=== PATIENT | male | born 1950 | race Caucasian/White ===

== ENCOUNTER 2019-03-14 08:57 | Day surgery (SDC) | payer OTHER ==
[~2019-03-14] VITALS: Ht 182.9 cm; Wt 100.7 kg
[~2019-03-14 08:57] MED LIST: ACAR50TA2 PO; ASPI81TA85 PO; CLAR10CA3 PO; GABA-845 PO; KP F1200 PO; LISI40TA PO; METF-839 PO; MULTCAP PO; NS 1,000 ML IV ONE; OMEP10CASR PO; ONGL1TAB9 PO; ROSU40TA4 PO
[2019-03-14] MEDS ORDERED: propofoL 200 MG/20 ML VIAL As Ordered ONE ×2 (10:06→10:14)
--- NOTE | 2019-03-14 10:23 | ROOR ---
Patient Name: Nacho Connell Procedure Date: 03/14/2019 10:01 AM Date of : 1950 Age: 68 Room: [facility] Gender: Male Note Status: Finalized Procedure: Total Colonoscopy to Cecum Indications: High risk colon cancer surveillance: Personal history of colonic polyps, Last colonoscopy: 2003 Providers: Ramirez Jarrett MD Referring MD: [facility] [place], [facility], Admin. Arthur Germain Requesting Provider: Medicines: Monitored Anesthesia Care Complications: No immediate complications. Procedure: Pre-Anesthesia Assessment: - The heart rate, respiratory rate, oxygen saturations, blood pressure, adequacy of pulmonary ventilation, and response to care were monitored throughout the procedure. The Colonoscope was introduced through the anus and advanced to the cecum, identified by appendiceal orifice and ileocecal valve. The colonoscopy was performed without difficulty. The patient tolerated the procedure well. The quality of the bowel preparation was excellent. Findings: The perianal and digital rectal examinations were normal. Non-bleeding internal hemorrhoids were found during retroflexion. The hemorrhoids were small and Grade I (internal hemorrhoids that do not prolapse). Scattered small-mouthed diverticula were found in the recto-sigmoid colon, sigmoid colon and descending colon. The exam was otherwise without abnormality on direct and retroflexion views. Impression: - Non-bleeding internal hemorrhoids. - Diverticulosis in the recto-sigmoid colon, in the sigmoid colon and in the descending colon. - The examination was otherwise normal on direct and retroflexion views. - No specimens collected. - The exam was otherwise normal to the cecum. Recommendation: - Patient has a contact number available for emergencies. The signs and symptoms of potential delayed complications were discussed with the patient. Return to normal activities tomorrow. Written discharge instructions were provided to the patient. - High fiber diet. - Discharge patient to home. - Continue present medications. - Repeat colonoscopy in 5 years for surveillance. - Return to referring physician. - The findings and recommendations were discussed with the patient's family. Ramirez Jarrett MD Ramirez Jarrett MD 03/14/2019 10:22:34 AM Electronically signed by Ramirez Jarrett MD Number of Addenda: 0 Note Initiated On: 03/14/2019 10:01 AM Estimated Blood Loss: Estimated blood loss: none.
[2019-03-14 10:40] VITALS: BP 124/80
== END 2019-03-14 10:49 | disposition home or self-care (01) ==
LOC: M OPP 08:57
PROVIDERS: ATTEND Internal Medicine Gastroenterology
DX: K64.0 First degree hemorrhoids (principal); K57.30 Diverticulosis of large intestine without perforation or abscess without bleeding; Z12.11 Encounter for screening for malignant neoplasm of colon; Z86.010 Personal history of colon polyps

== ENCOUNTER 2020-06-14 06:49 | Inpatient (IN) | payer OTHER, MEDICARE ==
[~2020-06-14] VITALS: Ht 182.9 cm; Wt 93.1 kg
[2020-06-14] VITALS (12 sets, daily range): BP systolic 125–188; BP diastolic 57–93
[~2020-06-14 06:49] MED LIST changes: -ACAR50TA2 PO; +ACAR50TA3 PO; -ASPI81TA85 PO; +ASPI81TA86 PO; -NS 1,000 ML IV ONE
[2020-06-14 07:56] LABS: BASO % 0.5 % (0.0-1.0); EOS # 0.2 10^3/uL (0.0-0.5); EOS % 2.4 % (0.0-3.0); HEMATOCRIT 40.4 % (42.0-52.0); LYMPH % 16.3 % (24.0-44.0); MEAN CORPUSCULAR HEMOGLOBIN 26.6 pg (27.0-33.0); MEAN CORPUSCULAR HGB CONC 32.2 g/dl (32.0-36.5); MEAN CORPUSCULAR VOLUME 82.6 fl (80.0-96.0); MONO # 0.4 10^3/uL (0.0-0.8); MONO % 7.1 % (0.0-5.0); NEUTROPHILS # 4.6 10^3/uL (1.5-8.5); NEUTROPHILS % 73.1 % (36.0-66.0); PLATELET COUNT, AUTOMATED 107 10^3/uL (150-450); RED BLOOD COUNT 4.89 10^6/uL (4.30-6.10); WHITE BLOOD COUNT 6.2 10^3/uL (4.0-10.0)
[2020-06-14] MEDS ORDERED: lisinopriL 40 MG TAB PO ONE (08:00)
[2020-06-14 08:06] LABS: BLOOD UREA NITROGEN 21 MG/DL (7-18); CALCIUM LEVEL 8.5 MG/DL (8.8-10.2); CARBON DIOXIDE LEVEL 26 MEQ/L (21-32); CHLORIDE LEVEL 104 MEQ/L (98-107); CREATININE FOR GFR 0.83 MG/DL (0.70-1.30); GLOMERULAR FILTRATION RATE > 60.0 (>42); GLUCOSE, FASTING 208 MG/DL (70-100); POTASSIUM SERUM 3.9 MEQ/L (3.5-5.1); SODIUM LEVEL 137 MEQ/L (136-145)
--- NOTE | 2020-06-14 08:18 | REP ---
INDICATION: Altered Mental Status. COMPARISON: None. TECHNIQUE: Helical scanning is acquired. 5 mm axial images were reformatted. Coronal MPR images were generated. FINDINGS: Bone window settings demonstrate an intact bony calvarium. There is no evidence of skull fracture or incidental bony calvarial lesion. The visualized paranasal sinuses appear clear. No intraorbital abnormality is seen. On soft tissue window setting images; the lateral, third, and fourth ventricles are normal in size and position. Donaldson-white differentiation pattern is normal above and below the tentorium. There are is no evidence of intracranial hemorrhage. No mass, edema, infarction, or midline shift is seen. No extra-axial fluid collection is appreciated. Vascular calcification is seen in the distal internal carotid arteries. There is mild generalized volume loss. IMPRESSION: Vascular calcification and mild diffuse atrophy. No acute intracranial abnormality.. <Electronically signed by Kameron Nichols > 06/14/20 [id number]
--- NOTE | 2020-06-14 08:19 | REP ---
INDICATION: Altered Mental Status. COMPARISON: Comparison chest x-ray November 11, 2012.. TECHNIQUE: Sitting AP portable exam. FINDINGS: Monitoring electrodes are seen. Heart is not enlarged. The aorta is calcific and a little tortuous. There are degenerative changes in the thoracic spine. The lungs are symmetrically aerated and free of infiltrate. Minimal linear fibrosis is seen in the left base laterally. The pleural angles are sharp. Pulmonary vasculature is not increased. IMPRESSION: Minimal linear fibrosis left base. No active disease. <Electronically signed by Kameron Nichols > 06/14/20 [id number]
[2020-06-14 08:27] LABS: VENOUS BASE EXCESS -0.8 (-2.0-2.0); VENOUS HCO3 24.6 MEQ/L (23.0-27.0); VENOUS O2 SATURATION 96.4 % (60.0-80.0); VENOUS PARTIAL PRESSURE CO2 43.2 mmHg (38.0-50.0); VENOUS PARTIAL PRESSURE O2 85.8 mmHg (30.0-50.0); VENOUS PH 7.373 UNITS (7.330-7.430); VENOUS STANDARD HCO3 23.8 MEQ/L; VENOUS TOTAL CO2 25.9 MEQ/L (24.0-28.0)
[2020-06-14 08:39] LABS: ALT/SGPT 15 U/L (12-78); BILIRUBIN,DIRECT 0.2 MG/DL (0.0-0.2); BILIRUBIN,TOTAL 0.5 MG/DL (0.2-1.0); CK-MB VALUE MASS 4.4 NG/ML (<3.6); CPK CREATINE PHOSPHOKINASE 193 U/L (39-308); MB/CK RELATIVE INDEX 2.28 (< OR =4); TOTAL PROTEIN 6.9 GM/DL (6.4-8.2); TROPONIN I < 0.02 NG/ML (< 0.10)
[2020-06-14 08:40] LABS: OSMOLALITY SERUM 296 MOSM/KG (280-301)
--- NOTE | 2020-06-14 10:24 | REP ---
INDICATION: weakness/sensation change lower extremities. COMPARISON: None. TECHNIQUE: Sagittal and axial T1 and T2-weighted scans are acquired in the usual fashion with and without fat saturation. Sequences include spin echo, turbo spin-echo, and STIR imaging sequences. FINDINGS: Lumbar vertebral body heights are preserved. There is some straightening. No bony destructive lesion is seen. Normal caliber aorta. No extra vertebral abnormality is appreciated. The tip of the conus medullaris is normal in position and appearance at T12-L1. At L1-L2, axial and sagittal images demonstrate a large broad-based central focal disc protrusion compressing the thecal sac and producing moderate central canal stenosis. The midline AP dimension of the thecal sac at this level is 3.7 mm. No neural foraminal narrowing is seen. At the L2-3 level, there is diffuse disc bulging. Combined with mild ligamentum flavum hypertrophy and developmentally short pedicles, there is moderate central canal stenosis at L2-3 as well. Midline AP dimension of the thecal sac at L2-3 is 4.7 mm. No neural foraminal narrowing is seen. At L3-L4, there is a broad-based right paracentral focal disc protrusion and diffuse disc bulging which contribute along with ligamentum flavum and facet hypertrophy and developmentally short pedicles to moderate to severe central canal stenosis at L3-4. CSF signal intensity is effaced from the thecal sac at L3-4 on T2 weighted scans. The facet hypertrophy is more prominent on the right. Midline AP dimension of the thecal sac at L3-4 is 4.8 mm. There is disc bulging and spurring in the neural foramen on both sides at L3-4 but no elin had root compression is seen. At L4-L5, there is diffuse disc bulging and a broad-based left posterior disc protrusion. There is severe central canal stenosis and cauda equina compression at this level. Ligamentum flavum and facet hypertrophy contribute to this. The midline AP dimension of the thecal sac at this level is 2.8 mm. The caudate equina elements show slight buckling above this level on sagittal T2 weighted scans. There is neural foraminal narrowing on the left at L4-5. At L5-S1, there is diffuse disc bulging and a small left posterior focal disc protrusion is seen. This abuts the left L5 root.. This indents the ventral margin of the thecal sac. No significant central canal stenosis seen. Mild facet hypertrophy is present at L5-S1. IMPRESSION: Multilevel significant central canal stenosis. Most severe at L4-5 but moderate to severe at L3-4 and L2-3. Multilevel neural foraminal narrowing as above. Focal disc protrusion seen at L1-2, L3-4, L4-5, and L5-S1 contributing to thecal sac compression. Developmentally small canal size. <Electronically signed by Kameron Nichols > 06/14/20 [id number]
[2020-06-14] MEDS ORDERED: amLODIPine 10 MG TAB PO ONE (10:45)
--- NOTE | 2020-06-14 10:46 | HPEPDOC ---
General Date of Admission 06/14/20 Date of Service: Jun 14, 2020 Chief Complaint The patient is a 69-year-old male admitted with a reason for visit of Weakness. Source: Patient Exam Limitations: No limitations Timing/Duration: Day(s) Severity: Moderate History of Present Illness Patient 69 years old male with history of hypertension, hyperlipidemia, type 2 diabetes presented to the hospital with increased numbness and weakness of both feet. Patient stated that for past 48 hours he has been having increased numbness of his feet associated with weakness. Also patient stated that it became worse and from feet rising to his proximal legs. Also patient mentioned that he started feeling weakness in his both hands with numbness. Patient has diabetes polyneuropathy but he stated that legs sensation is different. Patient had 2 weeks ago flu vaccination and 6 days ago he had diarrhea, which subsequently resolved. In ER patient was found to have no leukocytosis, lactic acid 2.2, lumbar MRI showed Multilevel significant central canal stenosis. Most severe at L4-5 but moderate to severe at L3-4 and L2-3. Multilevel neural foraminal narrowing as above. Focal disc protrusion seen at L1-2, L3-4, L4-5, and L5-S1 contributing to thecal sac compression. Also patient was found to have elevated blood pressure of 220/95 Home Medications Scheduled Acarbose (Acarbose) 50 Mg Tablet, 50 MG PO WM, (Reported) Aspirin (Aspirin EC) 81 Mg Tablet.dr, 81 MG PO Q2D, (Reported) Cholecalciferol (Vitamin D3) (Vitamin D3) 1,000 Unit Tablet, 1,000 UNITS PO DAILY, (Reported) Gabapentin (Gabapentin) 400 Mg Capsule, 1,200 MG PO QHS, (Reported) Lisinopril (Lisinopril) 40 Mg Tablet, 20 MG PO DAILY, (Reported) Loratadine (Claritin) 10 Mg Capsule, 10 MG PO DAILY, (Reported) Metformin HCl (Metformin HCl ER) 500 Mg Tab.er.24h, 1,000 MG PO BID, (Reported) Multivitamin (Multivitamins) 1 Each Capsule, 1 CAP PO QPM, (Reported) [place]-3/Dha/Epa/Fish Oil (Fish Oil 1,000 mg Softgel) 1 Each Capsule, 1,000 MG PO QPM, (Reported) Omeprazole (Omeprazole) 20 Mg Capsule.dr, 20 MG PO DAILY, (Reported) Rosuvastatin Calcium (Rosuvastatin Calcium) 40 Mg Tablet, 40 MG PO QPM, (Reported) Saxagliptin HCl (Onglyza) 5 Mg Tablet, 5 MG PO DAILY, (Reported) Scheduled PRN Ibuprofen (Ibuprofen) 200 Mg Capsule, 400 MG PO QID PRN for PAIN, (Reported) Naproxen Sodium (Aleve) 220 Mg Tablet, 440 MG PO BID PRN for PAIN, (Reported) Allergies Coded Allergies: latex (Verified Allergy, Intermediate, blisters, 03/14/19) Past Medical History Medical History hypertension, hyperlipidemia, type 2 diabetes Family History I personally reviewed family history and found not pertinent Social History * Smoker: former Smoker Alcohol: Denies Drugs: denies A-FIB/CHADSVASC A-FIB History Current/History of A-Fib/PAF?: No Current PO Anticoag Therapy: No Review of Systems Constitutional: Denies: Chills, Fever Eyes: Denies: Pain ENT: Denies: Head Aches Skin: Denies: Rash Pulmonary: Denies: Dyspnea Cardiovascular: Denies: Chest Pain Gastrointestinal: Denies: Nausea, Vomiting Genitourinary: Denies: Dysuria Hematologic: Denies: Bruising, Bleeding Excessively Musculoskeletal: Denies: Neck Pain Neurological: Reports: Weakness (legs and hands), Numbness Psych: Reports: Mood Normal Physical Examination General Exam: Positive: Alert Eye Exam: Positive: PERRLA, Conjunctiva & lids normal ENT Exam: Positive: Atraumatic Neck Exam: Positive: Supple; Negative: JVD Chest Exam: Positive: Clear to auscultation Heart Exam: Positive: Rate Normal Telemetry: Positive: No significant arrhythmia Abdomen Exam: Positive: Normal bowel sounds Extremity Exam: Negative: Clubbing, Cyanosis Skin Exam: Positive: Nl turgor and temperature Neuro Exam: Negative: Strength at 5/5 X4 ext (LE3/5 b/l, UE 3/5 bl) Psych Exam: Positive: Mental status NL Vital Signs Vital Signs Date Time Temp Pulse Resp B/P (MAP) Pulse Ox O2 Delivery O2 Flow Rate FiO2 06/14/20 08:18 88 207/95 (132) 98 Room Air 06/14/20 07:43 96.6 06/14/20 07:33 18 Laboratory Data Labs 24H Laboratory Tests 2 06/14/20 07:38: Immature Granulocyte % (Auto) 0.6, Neutrophils (%) (Auto) 73.1H, Lymphocytes (%) (Auto) 16.3L, Monocytes (%) (Auto) 7.1H, Eosinophils (%) (Auto) 2.4, Basophils (%) (Auto) 0.5, Neutrophils # (Auto) 4.6, Lymphocytes # (Auto) 1.0L, Monocytes # (Auto) 0.4, Eosinophils # (Auto) 0.2, Basophils # (Auto) 0.0, Nucleated Red Blood Cells % (auto) 0.0, Anion Gap 7L, Glomerular Filtration Rate > 60.0, Osmolality 296, Calcium Level 8.5L, Total Bilirubin 0.5, Direct Bilirubin 0.2, Aspartate Amino Transf (AST/SGOT) 20, Alanine Aminotransferase (ALT/SGPT) 15, Alkaline Phosphatase 79, Total Creatine Kinase 193, Creatine Kinase MB 4.4H, Creatine Kinase MB Relative Index 2.28, Troponin I < 0.02, Total Protein 6.9, Albumin 4.0, Albumin/Globulin Ratio 1.4 06/14/20 07:42: POC Glucose (Misc Panel) 218H, POC Sodium (Misc Panel) 138, POC Potassium (Misc Panel) 4.0, POC Chloride (Misc Panel) 102, POC Total CO2 (Misc Panel) 24.0, POC Blood Urea Nitrogen (Misc Panel 22, POC Ionized Calcium (Misc Panel) 4.3L, POC Creatinine (Misc Panel) 0.7, POC Hematocrit (Misc Panel) 41.0 06/14/20 08:11: Urine Color YELLOW, Urine Appearance CLEAR, Urine pH 5.0, Urine Specific [place] 1.006, Urine Protein NEGATIVE, Urine Glucose (UA) NEGATIVE, Urine Ketones NEGATIVE, Urine Blood NEGATIVE, Urine Nitrite NEGATIVE, Urine Bilirubin NEGATIVE, Urine Urobilinogen 0.2, Urine Leukocyte Esterase NEGATIVE, Urine WBC (Auto) 0, Urine RBC (Auto) 0, Urine Hyaline Casts (Auto) 0, Urine Bacteria (Auto) NEGATIVE, Urine Squamous Epithelial Cells 0, Urine Mucus (Auto) SMALL, Urine Sperm (Auto) , Blood Gas Bicarbonate Standard 23.8, Venous Blood pH 7.373, Venous Blood Partial Pressure CO2 43.2, Venous Blood Partial Pressure O2 85.8H, Venous Blood Total Carbon Dioxide 25.9, Venous Blood HCO3 24.6, Venous Blood Oxygen Saturation 96.4H, Venous Blood Base Excess -0.8, Lactic Acid Level 2.2*H, Ammonia 25 CBC/BMP Laboratory Tests 06/14/20 07:38 Assessment/Plan Patient 69 years old male with history of hypertension, hyperlipidemia, type 2 diabetes presented to the hospital with increased numbness and weakness of both feet. Patient stated that for past 48 hours he has been having increased numbness of his feet associated with weakness. Also patient stated that it became worse and from feet rising to his proximal legs. Also patient mentioned that he started feeling weakness in his both hands with numbness. Patient has diabetes polyneuropathy but he stated that legs sensation is different. Patient had 2 weeks ago flu vaccination and 6 days ago he had diarrhea, which subsequently resolved. In ER patient was found to have no leukocytosis, lactic acid 2.2, lumbar MRI showed Multilevel significant central canal stenosis. Most severe at L4-5 but moderate to severe at L3-4 and L2-3. Multilevel neural foraminal narrowing as above. Focal disc protrusion seen at L1-2, L3-4, L4-5, and L5-S1 contributing to thecal sac compression. Also patient was found to have elevated blood pressure of 220/95 Problems (1) Weakness Status: Acute Problem Text: Lower extremity and upper extremity weakness Associated with lower extremity numbness and hands numbness Differential diagnosis includes progression of spinal stenosis, Guillain-Valladares, cervical myelopathy Will proceed with thoracic and cervical MRI Case was discussed with Dr. Noeudin Await MRI results (2) Hypertensive emergency Status: Acute Problem Text: Continue home meds Labetalol IV when necessary I added Norvasc 10 mg by mouth (3) Diabetes mellitus Status: Chronic Problem Text: Diabetes diet Insulin sliding scale Plan / VTE VTE Prophylaxis Ordered?: Yes HEYDI SMITH DO Jun 14, 2020 10:46
[2020-06-14] MEDS ORDERED: IBUP200C29 PO (11:02)
[2020-06-14] MEDS ORDERED: OMEG10002 PO (11:02)
[2020-06-14] MEDS ORDERED: OMEP1CAP73 PO (11:02)
[2020-06-14] MEDS ORDERED: D31000TA2 PO (11:02)
[2020-06-14] MEDS ORDERED: ASPI81TA26 PO (11:02)
[2020-06-14] MEDS ORDERED: METF-838 PO (11:02)
[2020-06-14] MEDS ORDERED: ALEV220T22 PO (11:02)
[2020-06-14] MEDS ORDERED: DEXTROSE 50% 50 ML SYRINGE IV PRN (11:15)
[2020-06-14] MEDS ORDERED: GLUCAGON INJ 1MG VIAL SC PRN (11:15)
[2020-06-14] MEDS ORDERED: GLUCOSE 4GM CHEW TABLET PO PRN (11:15)
[2020-06-14] MEDS: VITAMIN D 1,000 INTERNATIONAL UNITS TABLET PO SCH (13:06)
[2020-06-14] MEDS: OMEPRAZOLE 20 MG CAP PO SCH (13:06)
[2020-06-14] MEDS: HumaLOG INSULIN (NovoLOG) PER UNIT SC SCH ×3 (13:06→20:42)
[2020-06-14] MEDS: LORATADINE 10 MG TAB PO SCH (13:06)
[2020-06-14] MEDS: LABETALOL 100MG/20ML VIAL IV PRN ×2 (13:08→20:40)
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
[2020-06-14] MEDS: ACETAMINOPHEN TAB 650MG DOSE (2X325MG) PO PRN ×2 (16:40→22:07)
[2020-06-14] MEDS ORDERED: dexameTHASONE 20MG/5ML VIAL (J1100 PER 1MG) As Ordered ONE (17:54)
[2020-06-14] MEDS ORDERED: dexameTHASONE 20MG/5ML VIAL (J1100 PER 1MG) IV ONE (18:00)
[2020-06-14] MEDS ORDERED: METOCLOPRAMIDE INJ 10MG/2ML VIAL (J2765 PER 1) IV ONE (18:30)
[2020-06-14 19:53] LABS: HEMOGLOBIN A1c 8.1 %
--- NOTE | 2020-06-14 20:06 | REPVR ---
PROCEDURE INFORMATION: Exam: MR Cervical Spine Without Contrast Exam date and time: 06/14/2020 6:57 PM Age: 69 years old Clinical indication: Patient HX: Bu&le weakness, cauda equina from mri lspine earlier today TECHNIQUE: Imaging protocol: Multiplanar magnetic resonance images of the cervical spine without contrast. COMPARISON: No relevant prior studies available. FINDINGS: Vertebrae: The cervical vertebral bodies are normal in height, without abnormal subluxation. Spinal cord: No visualized cervical spinal cord edema. See below. Multilevel findings: Degenerative disc disease is noted at multiple cervical levels, with a decrease in the T2 signal intensity of the discs as well as disc bulge/osteophyte complexes. C2-C3: Mild disc bulging. No significant narrowing of the thecal sac or neural foramina. C3-C4: There is a broad-based disc bulge with protrusion causing moderate narrowing of the thecal sac and slight flattening of the ventral border of the spinal cord. Severe bilateral neural foraminal narrowing, with uncovertebral hypertrophy. C4-C5: A broad-based disc protrusion is identified with hypertrophy of the ligamentum flavum causing moderate spinal canal stenosis. There is mild increased concavity/compression of the cervical spinal cord. Mild bilateral neural foraminal narrowing, with uncovertebral hypertrophy. C5-C6: Mild disc bulging, with mild narrowing of the thecal sac. No significant neural foraminal narrowing bilaterally. C6-C7: Minimal disc bulging causing flattening of the ventral border of the thecal sac without significant overall narrowing. No significant neural foraminal narrowing bilaterally. C7-T1: No significant narrowing of the thecal sac. Mild right neural foraminal narrowing. No significant narrowing of the left neural foramen. Bilateral facet arthropathy visualized. Vertebral arteries: Expected flow voids in the vertebral arteries. A dominant right vertebral artery is identified. Soft tissues: No significant prevertebral soft tissue swelling. IMPRESSION: 1. Degenerative changes are noted at multiple cervical levels, as described above. 2. At C3-C4, there is a broad-based disc bulge with protrusion causing moderate narrowing of the thecal sac and slight flattening of the ventral border of the spinal cord. 3. At C4-C5, a broad-based disc protrusion is identified with moderate spinal canal stenosis. There is mild increased concavity/compression of the cervical spinal cord. 4. Mild narrowing of the thecal sac at C5-C6. 5. Neural foraminal narrowing visualized from C3-C4 through C7-T1. Electronically signed by: Tyrone Tatum On 06/14/2020 20:06:26 PM
[2020-06-14] MEDS: ROSUVASTATIN 10 MG TAB (CRESTOR) PO SCH (20:39)
[2020-06-14] MEDS: GABAPENTIN 400 MG CAP PO SCH (20:39)
--- NOTE | 2020-06-14 20:51 | REPVR ---
PROCEDURE INFORMATION: Exam: MR Thoracic Spine Without Contrast Exam date and time: 06/14/2020 7:33 PM Age: 69 years old Clinical indication: Patient HX: Bu&le weakness, cauda equina from mri lspine earlier today TECHNIQUE: Imaging protocol: Multiplanar magnetic resonance images of the thoracic spine without contrast. COMPARISON: No relevant prior studies available. FINDINGS: Vertebrae: There is increased concavity of multiple mid to lower thoracic endplates. A mild decrease in vertebral height is identified at T5 and T7 without acute marrow edema, consistent with chronic deformities. No abnormal subluxation of the thoracic vertebral bodies. Mild increased kyphosis of the thoracic spine. Spinal cord: Mild increased STIR signal intensity is identified within the lower thoracic spinal cord extending from T9-T10. This is suggestive of mild edema or myelopathy, although this abnormal signal is not confirmed on axial images. Discs/Spinal canal/Neural foramina: Degenerative changes are identified at multiple thoracic levels, with disc bulge/osteophyte complexes. Edema is identified within the T7-8 and T8-9 discs, which is likely degenerative or due to discitis. Mild edema is seen within the T9-10 and disc and adjacent bone marrow, which is also likely degenerative although an infectious etiology cannot be excluded. Minimal posterior disc bulging from T7-8 through T9-10, without significant narrowing of the thecal sac. Broad-based disc bulges are identified at T10-11 and T11-12, with minimal narrowing of the thecal sac at these levels. No significant narrowing of the thecal sac at the remaining thoracic levels. Mild right neural foraminal narrowing at T2-3. Slight narrowing of the left neural foramen at T11-12. The remaining thoracic neural foramina are patent. A decrease in disc height is identified at T7-8 and T8-9. Lungs: Evaluation of the lungs on MRI is limited. Kidneys and ureters: A 3.3 cm T2 hyperintense right renal cyst or cystic lesion is partially visualized. Soft tissues: No significant paraspinal swelling. Vasculature: Borderline aneurysmal dilatation of the descending thoracic aorta measuring 3.0 cm in diameter. IMPRESSION: 1. Mild increased STIR signal intensity is identified within the lower thoracic spinal cord extending from T9-T10. This is suggestive of mild edema or myelopathy, although this abnormal signal is not confirmed on axial images. Clinical correlation and follow-up postcontrast sequences are recommended. 2. Degenerative changes are identified at multiple thoracic levels, as described above. 3. Edema is identified within the T7-8 and T8-9 discs, which is likely degenerative or due to discitis. Mild edema is seen within the T9-10 and disc and adjacent bone marrow, which is also likely degenerative although an infectious etiology cannot be excluded. Clinical correlation recommended. 4. Broad-based disc bulges are identified at T10-11 and T11-12, with minimal narrowing of the thecal sac at these levels. 5. Mild right neural foraminal narrowing at T2-3. Slight narrowing of the left neural foramen at T11-12. 6. Mild increased kyphosis of the thoracic spine. 7. Borderline aneurysmal dilatation of the descending thoracic aorta measuring 3.0 cm in diameter. 8. A 3.3 cm right renal cyst or cystic lesion is partially visualized. Follow-up ultrasonography recommended. Electronically signed by: Tyrone Tatum On 06/14/2020 20:51:17 PM
[2020-06-15] VITALS (12 sets, daily range): BP systolic 140–195; BP diastolic 67–89
[2020-06-15] MEDS: ACETAMINOPHEN TAB 650MG DOSE (2X325MG) PO PRN (04:13)
[2020-06-15 04:41] LABS: HEMATOCRIT 40.8 % (42.0-52.0); HEMOGLOBIN 13.5 g/dl (13.5-17.5); MEAN CORPUSCULAR HEMOGLOBIN 27.2 pg (27.0-33.0); MEAN CORPUSCULAR HGB CONC 33.1 g/dl (32.0-36.5); MEAN CORPUSCULAR VOLUME 82.1 fl (80.0-96.0); PLATELET COUNT, AUTOMATED 124 10^3/uL (150-450); RED BLOOD COUNT 4.97 10^6/uL (4.30-6.10)
[2020-06-15 04:57] LABS: ALBUMIN 3.7 GM/DL (3.2-5.2); ALT/SGPT 15 U/L (12-78); BILIRUBIN,TOTAL 0.6 MG/DL (0.2-1.0); BLOOD UREA NITROGEN 19 MG/DL (7-18); CALCIUM LEVEL 8.3 MG/DL (8.8-10.2); CARBON DIOXIDE LEVEL 25 MEQ/L (21-32); CHLORIDE LEVEL 102 MEQ/L (98-107); CREATININE FOR GFR 0.99 MG/DL (0.70-1.30); GLOMERULAR FILTRATION RATE > 60.0 (>42); GLUCOSE, FASTING 290 MG/DL (70-100); POTASSIUM SERUM 4.2 MEQ/L (3.5-5.1); SODIUM LEVEL 136 MEQ/L (136-145); TOTAL PROTEIN 6.9 GM/DL (6.4-8.2)
[2020-06-15] MEDS: LORATADINE 10 MG TAB PO SCH (08:32)
[2020-06-15] MEDS: ASPIRIN 81 MG ENTERIC TAB PO SCH (08:32)
[2020-06-15] MEDS: VITAMIN D 1,000 INTERNATIONAL UNITS TABLET PO SCH (08:32)
[2020-06-15] MEDS: IBUPROFEN 800 MG TAB PO PRN ×2 (08:32→23:10)
[2020-06-15] MEDS: OMEPRAZOLE 20 MG CAP PO SCH (08:33)
[2020-06-15] MEDS: HumaLOG INSULIN (NovoLOG) PER UNIT SC SCH ×4 (08:42→20:46)
[2020-06-15] MEDS ORDERED: lisinopriL 20 MG TAB PO SCH (09:00)
[2020-06-15] MEDS: ENOXAPARIN 40MG/0.4ML SYRINGE (J1650 PER 10MG) SC SCH (09:00)
--- NOTE | 2020-06-15 09:03 | ECGEPIP ---
[facility] - ED Test Date: 2020-06-14 Pat Name: ONDINA CLEANING Department: Room: - Gender: Male [employer]one Mechanic: Annamarie ALICIA : [id number] Requested By: Esme Arteaga Order Number: [id number] Reading MD: Esme Atreaga Measurements Intervals [place] Rate: 85 P: 53 FL: 162 QRS: 52 QRSD: 165 T: 22 QT: 419 QTc: 501 Interpretive Statements SINUS RHYTHM RIGHT BUNDLE BRANCH BLOCK No prior Electronically Signed on 06-15-2020 9:02:54 EST by Esme Arteaga
[2020-06-15] MEDS: LABETALOL 100MG/20ML VIAL IV PRN ×2 (10:26→21:25)
--- NOTE | 2020-06-15 11:20 | IPNPDOC ---
Text Note Date of Service The patient was seen on 06/15/20. NOTE Subjective: Patient stated that he continues to have increased weakness of his legs and hands. No any acute events overnight Objective: GENERAL APPEARANCE: NAD HEENT: no scleral icterus, no JVD, EOMI CARDIOVASCULAR: S1S2 LUNGS: CTA ABDOMEN: soft & not tender w palpitation MUSCULOSKELETAL: UE 3/5, LE 3/5 INTEGUMENT: no generalized palor NEUROLOGICAL: cranial nerve function from 2-12 intact intact, follows commands, speech not dysarthric Patient 69 years old male with history of hypertension, hyperlipidemia, type 2 diabetes presented to the hospital with increased numbness and weakness of both feet. Patient stated that for past 48 hours he has been having increased numbness of his feet associated with weakness. Also patient stated that it became worse and from feet rising to his proximal legs. Also patient mentioned that he started feeling weakness in his both hands with numbness. Patient has diabetes polyneuropathy but he stated that legs sensation is different. Patient had 2 weeks ago flu vaccination and 6 days ago he had diarrhea, which subsequ ently resolved. In ER patient was found to have no leukocytosis, lactic acid 2.2, lumbar MRI showed Multilevel significant central canal stenosis. Most severe at L4-5 but moderate to severe at L3-4 and L2-3. Multilevel neural foraminal narrowing as above. Focal disc protrusion seen at L1-2, L3-4, L4-5, and L5-S1 contributing to thecal sac compression. Also patient was found to have elevated blood pressure of 220/95 Problems (1) Weakness Lower extremity and upper extremity weakness associated with lower extremity numbness and hands numbness Differential diagnosis includes progression of spinal stenosis, Guillain-Valladares, cervical myelopathy and cauda equina consulted patient yesterday, he recommended spinal surgery in the outpatient settings Dr. Lozano recommended lumbar puncture inability to rule out Guillain-Valladares syndrome Will start IVIG empirically for 5 days (2) Hypertensive emergency/hypertension Continue home meds Labetalol IV when necessary I added Norvasc 10 mg by mouth Increase the dose of lisinopril to 40 mg (3) Diabetes mellitus Diabetes diet Insulin sliding scale Suicidal ideation/major depressive episode Sitter 24 hours Psychiatrist team recommended IMHU after discharge I started paroxetine HEYDI SMITH DO VS,Fishbone, I+O VS, Fishbone, I+O Laboratory Tests 06/15/20 04:13 Vital Signs Date Time Temp Pulse Resp B/P (MAP) Pulse Ox O2 Delivery O2 Flow Rate FiO2 06/15/20 10:26 86 171/75 06/15/20 04:21 97.8 20 92 Nasal Cannula 2.0 I&O- Last 24 Hours up to 6 AM 06/15/20 06:00 Intake Total 660 ml Output Total 1410 ml Balance -750 ml HEYDI SMITH DO Jun 15, 2020 11:20
[2020-06-15] MEDS ORDERED: CHLORTHALIDONE 25 MG TAB PO ONE (12:00)
[2020-06-15] MEDS ORDERED: MAG SULF 1GM/100ML (MAG RUN) 1 GM in IV 1 EA IV ONE (12:00)
[2020-06-15] MEDS: LEVEMIR (INSULIN DETEMIR) 1 UNITS/0.01ML SC SCH (12:05)
[2020-06-15] MEDS: PARoxetine 10MG TABLET PO SCH (13:31)
[2020-06-15] MEDS: IMMUNE GLOBULIN 10% 40 GM in IV 1 EA IV SCH (13:34)
[2020-06-15] MEDS: ROSUVASTATIN 10 MG TAB (CRESTOR) PO SCH (20:44)
[2020-06-15] MEDS: GABAPENTIN 400 MG CAP PO SCH (20:44)
[2020-06-16] VITALS (30 sets, daily range): BP systolic 111–201; BP diastolic 59–115
[2020-06-16] MEDS: LABETALOL 100MG/20ML VIAL IV PRN ×4 (00:16→20:14)
[2020-06-16] MEDS: ACETAMINOPHEN TAB 650MG DOSE (2X325MG) PO PRN ×4 (00:16→20:13)
[2020-06-16] MEDS: RAMELTEON 8 MG TAB (ROZEREM) PO PRN ×2 (00:16→20:13)
[2020-06-16] MEDS ORDERED: MORPHINE 2 MG/ML 1ML VIAL (J2270) IV ONE ×2 (04:45→11:00)
[2020-06-16] MEDS: HumaLOG INSULIN (NovoLOG) PER UNIT SC SCH ×4 (07:55→21:00)
[2020-06-16] MEDS: PARoxetine 10MG TABLET PO SCH (08:00)
[2020-06-16] MEDS: lisinopriL 20 MG TAB PO SCH (08:01)
[2020-06-16] MEDS: LORATADINE 10 MG TAB PO SCH (08:01)
[2020-06-16] MEDS: OMEPRAZOLE 20 MG CAP PO SCH (08:01)
[2020-06-16] MEDS: VITAMIN D 1,000 INTERNATIONAL UNITS TABLET PO SCH (08:01)
[2020-06-16] MEDS: LEVEMIR (INSULIN DETEMIR) 1 UNITS/0.01ML SC SCH (08:02)
[2020-06-16] MEDS: amLODIPine 10 MG TAB PO SCH (08:05)
[2020-06-16 08:18] LABS: BASO % 0.6 % (0.0-1.0); EOS # 0.1 10^3/uL (0.0-0.5); EOS % 2.3 % (0.0-3.0); HEMATOCRIT 40.5 % (42.0-52.0); HEMOGLOBIN 12.9 g/dl (13.5-17.5); LYMPH # 0.9 10^3/uL (1.5-5.0); LYMPH % 18.3 % (24.0-44.0); MEAN CORPUSCULAR HEMOGLOBIN 26.7 pg (27.0-33.0); MEAN CORPUSCULAR HGB CONC 31.9 g/dl (32.0-36.5); MEAN CORPUSCULAR VOLUME 83.7 fl (80.0-96.0); MONO # 0.4 10^3/uL (0.0-0.8); MONO % 7.4 % (0.0-5.0); NEUTROPHILS # 3.5 10^3/uL (1.5-8.5); PLATELET COUNT, AUTOMATED 115 10^3/uL (150-450); RED BLOOD COUNT 4.84 10^6/uL (4.30-6.10); WHITE BLOOD COUNT 4.9 10^3/uL (4.0-10.0)
[2020-06-16 08:36] LABS: CALCIUM LEVEL 8.1 MG/DL (8.8-10.2); CREATININE FOR GFR 1.36 MG/DL (0.70-1.30); MAGNESIUM LEVEL 1.5 MG/DL (1.8-2.4); POTASSIUM SERUM 4.6 MEQ/L (3.5-5.1)
[2020-06-16] MEDS ORDERED: MORPHINE 2 MG/ML 1ML VIAL (J2270) IV PRN (09:00)
[2020-06-16] MEDS: ENOXAPARIN 40MG/0.4ML SYRINGE (J1650 PER 10MG) SC SCH (09:00)
[2020-06-16] MEDS: traMADol 50 MG TAB PO PRN ×2 (09:27→17:59)
[2020-06-16] MEDS: DOCUSATE SODIUM 100MG CAPSULE PO SCH ×2 (09:45→20:13)
[2020-06-16] MEDS: NS 1,000 ML IV SCH ×2 (09:45→17:58)
[2020-06-16] MEDS: **hydrALAZINE** 50 MG TAB PO PRN ×2 (09:45→20:13)
[2020-06-16] MEDS ORDERED: BISACODYL 10 MG SUPP PR ONE (10:00)
[2020-06-16] MEDS ORDERED: MAG SULF 1GM/100ML (MAG RUN) 1 GM in IV 1 EA IV ONE (10:00)
[2020-06-16] MEDS ORDERED: hydrALAZINE 20MG/ML 1ML VIAL (J0360 PER 20MG) IV STA (10:44)
--- NOTE | 2020-06-16 12:02 | IPNPDOC ---
Text Note Date of Service The patient was seen on 06/16/20. NOTE Subjective: Patient complains of severe lumbar and thoracic pain 9 out of 10. Also patient developed high systolic blood pressure of 200. Lumbar puncture was done by anesthesiology team today Objective: GENERAL APPEARANCE: NAD HEENT: no scleral icterus, no JVD, EOMI CARDIOVASCULAR: S1S2 LUNGS: CTA ABDOMEN: soft & not tender w palpitation MUSCULOSKELETAL: UE 3/5, LE 3/5, perianal sensitivity preserved INTEGUMENT: no generalized pallor NEUROLOGICAL: cranial nerve function from 2-12 intact intact, follows commands, speech not dysarthric Patient 69 years old male with history of hypertension, hyperlipidemia, type 2 diabetes presented to the hospital with increased numbness and weakness of both feet. Patient stated that for past 48 hours he has been having increased numbness of his feet associated with weakness. Also patient stated that it became worse and from feet rising to his proximal legs. Also patient mentioned that he started feeling weakness in his both hands with numbness. Patient has diabetes polyneuropathy but he stated that legs sensation is different. Patient had 2 weeks ago flu vaccination and 6 days ago he had diarrhea, which subseq uently resolved. In ER patient was found to have no leukocytosis, lactic acid 2.2, lumbar MRI showed Multilevel significant central canal stenosis. Most severe at L4-5 but moderate to severe at L3-4 and L2-3. Multilevel neural foraminal narrowing as above. Focal disc protrusion seen at L1-2, L3-4, L4-5, and L5-S1 contributing to thecal sac compression. Also patient was found to have elevated blood pressure of 220/95 Problems (1) Weakness Lower extremity and upper extremity weakness associated with lower extremity numbness and hands numbness Differential diagnosis includes progression of spinal stenosis, Guillain-Valladares, cervical myelopathy and cauda equina consulted patient yesterday, he recommended spinal surgery in the outpatient settings. Unlikely patient developed Dr. Lozano recommended lumbar puncture in to rule out Guillain-Valladares syndrome. Lumbar puncture was done on 06/26/20 IVIG empirically for 5 days (2) Hypertensive emergency/hypertension Most likely to severe pain. Continue home meds Labetalol IV when necessary Hydrolyzing IV with parameters I added Norvasc 10 mg by mouth Increase the dose of lisinopril to 40 mg (3) Diabetes mellitus Diabetes diet Insulin sliding scale Suicidal ideation/major depressive episode Sitter 24 hours Psychiatrist team recommended IMHU after discharge I started paroxetine VS,Fishbone, I+O VS, Fishbone, I+O Laboratory Tests 06/16/20 07:44 Vital Signs Date Time Temp Pulse Resp B/P (MAP) Pulse Ox O2 Delivery O2 Flow Rate FiO2 06/16/20 11:43 96.1 62 20 157/70 96 Nasal Cannula 2.0 I&O- Last 24 Hours up to 6 AM 06/16/20 06:00 Intake Total 1140 ml Output Total 1955 ml Balance -815 ml HEYDI SMITH DO Jun 16, 2020 12:02
[2020-06-16 12:38] LABS: APPEARANCE, CSF CLEAR (CLEAR); COLOR, CSF COLORLESS (COLORLESS); CSF TUBE# CELL CNT TUBE 1
[2020-06-16 12:42] LABS: APPEARANCE, CSF HAZY (CLEAR); COLOR, CSF PINK (COLORLESS); CSF TUBE# CELL CNT TUBE 4
[2020-06-16] MEDS ORDERED: PROHANCE 279.3MG/ML 5ML VIAL As Ordered ONE (12:53)
[2020-06-16] MEDS ORDERED: PROHANCE 279.3MG/ML 15ML VIAL As Ordered ONE (12:55)
[2020-06-16 13:16] LABS: CSF TUBE# GLU TUBE 2; CSF TUBE# TP TUBE 2; GLUCOSE CSF 177 MG/DL (40-75); TOTAL PROTEIN,CSF 167 MG/DL (15-45)
[2020-06-16] MEDS: LIDOCAINE 5% (LIDODERM) PATCH TD SCH (14:04)
[2020-06-16] MEDS: IMMUNE GLOBULIN 10% 40 GM in IV 1 EA IV SCH (14:11)
[2020-06-16 14:56] LABS: ABG BASE EXCESS 0.1 (-2.0-2.0); ABG HCO3 25.4 MEQ/L (22.0-26.0); ABG O2 SATURATION 95.8 % (95.0-99.0); ABG PARTIAL PRESSURE O2 82.1 mmHg (75.0-100.0); ABG STANDARD HCO3 24.5 MEQ/L (22.0-26.0); ABG TOTAL CO2 26.8 MEQ/L (23.0-31.0)
--- NOTE | 2020-06-16 18:08 | REP ---
INDICATION: spinal stenosis, with gadolinium. COMPARISON: MRI without contrast [id number] TECHNIQUE: Patient received a bolus of 20 mL ProHance with T1 axial and fat suppressed T1 sagittal images provided. Field of view on axial projection is C6-7 through inferior endplate of T12. FINDINGS: Needed the axial or sagittal T1 images with gadolinium show evidence of abnormal enhancement of the cord. There is no syrinx, myelomalacia or enhancing nodule/mass the intramedullary space. No extra dural enhancement. There is 1 small focus of enhancement at the T6-7 level centrally. The endplates are grossly intact except for a small Schmorl's node centrally with enhancement into it. At T7-8 there is enhancement within the disc but no edema on the standard T2 images or enhancement of marrow adjacent. At T8-9 there is enhancement within the disc and likewise no enhancement of the marrow adjacent to the endplate. At T9-10 there is no enhancement within the disc but there is enhancement within a small Schmorl's node. The T10-11 through T12-L1 there was no abnormal enhancement within the disc or adjacent marrow to the endplates. T5-6 levels and above show no abnormal enhancement. None of these levels showed any abnormal enhancement in the paraspinal region or intradural extramedullary/epidural space. IMPRESSION: 1. Pattern enhancement consistent with degenerative change. I do not see compelling evidence for discitis as the marrow adjacent to the endplates showed no enhancement and there is no extradural enhancement or paraspinal tissue enhancement. 2. There is no enhancement of the thoracic cord or appearance that would clearly defined myelomalacia intramedullary lesion or extramedullary dural enhancement. <Electronically signed by Navdeep Nieto > 06/16/20 [id number]
[2020-06-16] MEDS: ROSUVASTATIN 10 MG TAB (CRESTOR) PO SCH (20:11)
[2020-06-16] MEDS: GABAPENTIN 400 MG CAP PO SCH (20:13)
[2020-06-16] MEDS: **NOTE PATIENT COMMENT** MISC XX SCH (21:03)
[2020-06-16] MEDS: MORPHINE 2 MG/ML 1ML VIAL (J2270) IV PRN (21:33)
[2020-06-16] MEDS: hydrALAZINE 20MG/ML 1ML VIAL (J0360 PER 20MG) IV PRN (21:35)
[2020-06-17] VITALS (47 sets, daily range): BP systolic 95–221; BP diastolic 51–147; O2SAT 97
[2020-06-17] MEDS: traMADol 50 MG TAB PO PRN ×2 (00:11→06:46)
[2020-06-17] MEDS: LABETALOL 100MG/20ML VIAL IV PRN ×2 (02:06→03:22)
[2020-06-17] MEDS: NS 1,000 ML IV SCH ×3 (02:32→13:38)
[2020-06-17] MEDS: MORPHINE 2 MG/ML 1ML VIAL (J2270) IV PRN ×3 (02:32→21:08)
[2020-06-17 05:36] LABS: BASO % 0.4 % (0.0-1.0); EOS % 0.8 % (0.0-3.0); HEMATOCRIT 40.5 % (42.0-52.0); HEMOGLOBIN 12.8 g/dl (13.5-17.5); LYMPH # 0.8 10^3/uL (1.5-5.0); LYMPH % 16.1 % (24.0-44.0); MEAN CORPUSCULAR HEMOGLOBIN 26.2 pg (27.0-33.0); MEAN CORPUSCULAR HGB CONC 31.6 g/dl (32.0-36.5); MONO # 0.4 10^3/uL (0.0-0.8); MONO % 7.8 % (0.0-5.0); NEUTROPHILS # 3.8 10^3/uL (1.5-8.5); NEUTROPHILS % 74.5 % (36.0-66.0); PLATELET COUNT, AUTOMATED 114 10^3/uL (150-450); RED BLOOD COUNT 4.88 10^6/uL (4.30-6.10); WHITE BLOOD COUNT 5.1 10^3/uL (4.0-10.0)
[2020-06-17 05:40] LABS: BLOOD UREA NITROGEN 25 MG/DL (7-18); CARBON DIOXIDE LEVEL 27 MEQ/L (21-32); CHLORIDE LEVEL 100 MEQ/L (98-107); CREATININE FOR GFR 0.81 MG/DL (0.70-1.30); GLOMERULAR FILTRATION RATE > 60.0 (>42); GLUCOSE, FASTING 259 MG/DL (70-100); MAGNESIUM LEVEL 1.4 MG/DL (1.8-2.4); POTASSIUM SERUM 4.1 MEQ/L (3.5-5.1); SODIUM LEVEL 133 MEQ/L (136-145)
[2020-06-17] MEDS: **hydrALAZINE** 50 MG TAB PO PRN (06:45)
[2020-06-17] MEDS: ACETAMINOPHEN TAB 650MG DOSE (2X325MG) PO PRN (06:45)
[2020-06-17] MEDS: HumaLOG INSULIN (NovoLOG) PER UNIT SC SCH ×4 (08:21→18:00)
[2020-06-17] MEDS: ONDANSETRON 4MG/2ML VIAL IV SCH ×3 (08:21→17:14)
[2020-06-17] MEDS ORDERED: MAG SULF 1GM/100ML (MAG RUN) 1 GM in IV 1 EA IV ONE (09:00)
[2020-06-17] MEDS: ASPIRIN 81 MG ENTERIC TAB PO SCH (09:03)
[2020-06-17] MEDS: LEVEMIR (INSULIN DETEMIR) 1 UNITS/0.01ML SC SCH ×2 (09:03→21:59)
[2020-06-17] MEDS: lisinopriL 20 MG TAB PO SCH (09:03)
[2020-06-17] MEDS: amLODIPine 10 MG TAB PO SCH (09:04)
[2020-06-17] MEDS: DOCUSATE SODIUM 100MG CAPSULE PO SCH (09:04)
[2020-06-17] MEDS: OMEPRAZOLE 20 MG CAP PO SCH (09:04)
[2020-06-17] MEDS: VITAMIN D 1,000 INTERNATIONAL UNITS TABLET PO SCH (09:04)
[2020-06-17] MEDS: ENOXAPARIN 40MG/0.4ML SYRINGE (J1650 PER 10MG) SC SCH (09:05)
[2020-06-17] MEDS: PARoxetine 10MG TABLET PO SCH (09:05)
[2020-06-17] MEDS: LORATADINE 10 MG TAB PO SCH (09:05)
[2020-06-17] MEDS: LIDOCAINE 5% (LIDODERM) PATCH TD SCH (09:06)
--- NOTE | 2020-06-17 11:37 | IPNPDOC ---
Text Note Date of Service The patient was seen on 06/17/20. NOTE Subjective: Patient continues to have increased weakness of distal legs and u pper extremities. He continues to be depressed, he stated in the morning that he doesn't want to be intubated. However when I talked to him he agreed with possible intubation Objective: GENERAL APPEARANCE: NAD HEENT: no scleral icterus, no JVD, EOMI CARDIOVASCULAR: S1S2 LUNGS: CTA ABDOMEN: soft & not tender w palpitation MUSCULOSKELETAL: UE 3/5, LE 3/5, perianal sensitivity preserved INTEGUMENT: no generalized pallor NEUROLOGICAL: cranial nerve function from 2-12 intact intact, follows commands, speech not dysarthric Patient 69 years old male with history of hypertension, hyperlipidemia, type 2 diabetes presented to the hospital with increased numbness and weakness of both feet. Patient stated that for past 48 hours he has been having increased numbness of his feet associated with weakness. Also patient stated that it became worse and from feet rising to his proximal legs. Also patient mentioned that he started feeling weakness in his both hands with numbness. Patient has diabetes polyneuropathy but he stated that legs sensation is different. Patient had 2 weeks ago flu vaccination and 6 days ago he had diarrhea, which subsequently resolved. In ER patient was found to have no leukocytosis, lactic acid 2.2, lumbar MRI showed Multilevel significant central canal stenosis. Most severe at L4-5 but moderate to severe at L3-4 and L2-3. Multilevel neural foraminal narrowing as above. Focal disc protrusion seen at L1-2, L3-4, L4-5, and L5-S1 contributing to thecal sac compression. 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 Continue home meds Labetalol IV when necessary Hydrolyzing IV with parameters I added Norvasc 10 mg by mouth Increase the dose of lisinopril to 40 mg Diabetes mellitus Diabetes diet Insulin sliding scale Suicidal ideation/major depressive episode Sitter 24 hours Psychiatrist team recommended IMHU after discharge I started paroxetine VS,Fishbone, I+O VS, Fishbone, I+O Laboratory Tests 06/17/20 04:57 Vital Signs Date Time Temp Pulse Resp B/P (MAP) Pulse Ox O2 Delivery O2 Flow Rate FiO2 06/17/20 10:52 96.2 77 16 142/65 94 Nasal Cannula 2.0 l I&O- Last 24 Hours up to 6 AM 06/17/20 06:00 Intake Total 2940 ml Output Total 2475 ml Balance 465 ml HEYDI SMITH DO Jun 17, 2020 11:37
[2020-06-17] MEDS ORDERED: GABAPENTIN 400 MG CAP PO SCH (13:15)
[2020-06-17] MEDS: IMMUNE GLOBULIN 10% 40 GM in IV 1 EA IV SCH (13:17)
[2020-06-17] MEDS: hydrALAZINE 20MG/ML 1ML VIAL (J0360 PER 20MG) IV PRN (17:19)
[2020-06-17] MEDS ORDERED: KETOROLAC 30 MG/ML 1ML VIAL As Ordered ONE (17:47)
[2020-06-17] MEDS: KETOROLAC 30 MG/ML 1ML VIAL IV SCH (18:07)
[2020-06-17] MEDS: ALBUTEROL SULFATE 2.5 MG/0.5 ML INH NEB SOLN NEB SCH (19:27)
[2020-06-17 19:39] LABS: ABG BASE EXCESS 0.4 (-2.0-2.0); ABG HCO3 26.9 MEQ/L (22.0-26.0); ABG O2 SATURATION 93.5 % (95.0-99.0); ABG PARTIAL PRESSURE CO2 50.6 mmHg (35.0-45.0); ABG PARTIAL PRESSURE O2 74.5 mmHg (75.0-100.0); ABG STANDARD HCO3 24.7 MEQ/L (22.0-26.0); ABG TOTAL CO2 28.4 MEQ/L (23.0-31.0); ABG pH (ARTERIAL) 7.343 UNITS (7.350-7.450)
[2020-06-17] MEDS ORDERED: PROPOFOL 1,000 MG/100 ML VIAL As Ordered ONE (19:51)
--- NOTE | 2020-06-17 20:21 | REPVR ---
PROCEDURE INFORMATION: Exam: XR Chest, 1 View Exam date and time: 06/17/2020 7:41 PM Age: 69 years old Clinical indication: Other: ? Hypoxia/aspiration; Additional info: Hypoxia, aspiration TECHNIQUE: Imaging protocol: XR of the chest Views: 1 view. COMPARISON: [place] PORTABLE CHEST X-RAY 06/14/2020 8:09 AM FINDINGS: Lungs: Mild bibasilar atelectasis. No other airspace infiltrates. Pleural space: Unremarkable. No pleural effusion. No pneumothorax. Heart/Mediastinum: Stable mild cardiomegaly. Diaphragm: Elevated right hemidiaphragm. Bones/joints: Unremarkable. IMPRESSION: Mild hypoventilatory changes. No acute findings. Electronically signed by: Tex Luz On 06/17/2020 20:21:05 PM
[2020-06-17] MEDS: CHLORHEXIDINE GLUCONATE 0.12 % 15ML UDC (PERIDEX ORAL RINSE) MT SCH (20:37)
--- NOTE | 2020-06-17 20:37 | REPVR ---
PROCEDURE INFORMATION: Exam: XR Chest, 1 View Exam date and time: 06/17/2020 8:19 PM Age: 69 years old Clinical indication: Device placement; Ett placement (vent status); Additional info: Intubation TECHNIQUE: Imaging protocol: XR of the chest Views: 1 view. COMPARISON: CR PORTABLE CHEST X-RAY 06/17/2020 7:30 PM FINDINGS: Tubes, catheters and devices: Nasogastric tube projects in the stomach. Lungs: Mild basilar atelectasis. Pleural space: Unremarkable. No pleural effusion. No pneumothorax. Heart/Mediastinum: Unremarkable. No cardiomegaly. Bones/joints: Unremarkable. IMPRESSION: Nasogastric tube projects in the stomach. Electronically signed by: Tex Luz On 06/17/2020 20:37:11 PM
[2020-06-17] MEDS: propofoL 1,000 MG in IV 1 EA IV SCH (20:38)
[2020-06-17] MEDS: PIPERACILLIN/TAZOBACTAM SOD 3.375 GM in D5W MINI-BAG PLUS 50 ML IV SCH (20:38)
[2020-06-17] MEDS ORDERED: ETOMIDATE INJ 20MG/10ML VIAL IV STA (20:41)
[2020-06-17] MEDS ORDERED: ROCURONIUM BROMIDE 50 MG/5 ML VIAL IV SCH (20:45)
[2020-06-17] MEDS: **NOTE PATIENT COMMENT** MISC XX SCH (21:09)
[2020-06-17 21:44] LABS: ABG BASE EXCESS -0.8 (-2.0-2.0); ABG HCO3 24.9 MEQ/L (22.0-26.0); ABG O2 SATURATION 95.8 % (95.0-99.0); ABG PARTIAL PRESSURE CO2 44.8 mmHg (35.0-45.0); ABG PARTIAL PRESSURE O2 84.9 mmHg (75.0-100.0); ABG STANDARD HCO3 23.8 MEQ/L (22.0-26.0); ABG TOTAL CO2 26.2 MEQ/L (23.0-31.0); ABG pH (ARTERIAL) 7.362 UNITS (7.350-7.450)
[2020-06-18] VITALS (53 sets, daily range): BP systolic 71–177; BP diastolic 37–92; O2SAT 97–100
[2020-06-18] MEDS: ALBUTEROL SULFATE 2.5 MG/0.5 ML INH NEB SOLN NEB SCH ×6 (00:03→20:49)
[2020-06-18] MEDS: KETOROLAC 30 MG/ML 1ML VIAL IV SCH ×4 (00:09→17:52)
[2020-06-18] MEDS: propofoL 1,000 MG in IV 1 EA IV SCH ×3 (00:10→14:21)
[2020-06-18] MEDS: HumaLOG INSULIN (NovoLOG) PER UNIT SC SCH ×4 (00:12→17:52)
[2020-06-18] MEDS: PIPERACILLIN/TAZOBACTAM SOD 3.375 GM in D5W MINI-BAG PLUS 50 ML IV SCH ×4 (02:33→20:26)
[2020-06-18] MEDS: ONDANSETRON 4MG/2ML VIAL IV SCH ×4 (02:33→20:26)
[2020-06-18 05:10] LABS: BASO % 0.5 % (0.0-1.0); EOS % 0.7 % (0.0-3.0); HEMATOCRIT 40.6 % (42.0-52.0); HEMOGLOBIN 12.6 g/dl (13.5-17.5); LYMPH # 1.1 10^3/uL (1.5-5.0); LYMPH % 19.2 % (24.0-44.0); MEAN CORPUSCULAR HEMOGLOBIN 26.6 pg (27.0-33.0); MEAN CORPUSCULAR VOLUME 85.7 fl (80.0-96.0); MONO # 0.6 10^3/uL (0.0-0.8); MONO % 10.1 % (0.0-5.0); NEUTROPHILS # 4.1 10^3/uL (1.5-8.5); PLATELET COUNT, AUTOMATED 102 10^3/uL (150-450); RED BLOOD COUNT 4.74 10^6/uL (4.30-6.10); WHITE BLOOD COUNT 5.9 10^3/uL (4.0-10.0)
[2020-06-18 05:27] LABS: BLOOD UREA NITROGEN 37 MG/DL (7-18); CALCIUM LEVEL 7.3 MG/DL (8.8-10.2); CARBON DIOXIDE LEVEL 25 MEQ/L (21-32); CHLORIDE LEVEL 101 MEQ/L (98-107); CREATININE FOR GFR 1.26 MG/DL (0.70-1.30); GLOMERULAR FILTRATION RATE > 60.0 (>42); GLUCOSE, FASTING 177 MG/DL (70-100); MAGNESIUM LEVEL 1.8 MG/DL (1.8-2.4); POTASSIUM SERUM 4.1 MEQ/L (3.5-5.1); SODIUM LEVEL 133 MEQ/L (136-145)
[2020-06-18 06:23] LABS: ABG BASE EXCESS -1.1 (-2.0-2.0); ABG HCO3 24.3 MEQ/L (22.0-26.0); ABG O2 SATURATION 97.3 % (95.0-99.0); ABG PARTIAL PRESSURE CO2 43.1 mmHg (35.0-45.0); ABG PARTIAL PRESSURE O2 93.6 mmHg (75.0-100.0); ABG STANDARD HCO3 23.6 MEQ/L (22.0-26.0); ABG TOTAL CO2 25.6 MEQ/L (23.0-31.0); ABG pH (ARTERIAL) 7.369 UNITS (7.350-7.450)
--- NOTE | 2020-06-18 06:34 | REP ---
INDICATION: respiratory failure COMPARISON: 06/17/2020-06/14/2020 TECHNIQUE: Portable AP view of the chest FINDINGS: Endotracheal tube 4 cm above the blanco. Nasogastric tube courses below the left hemidiaphragm. Mediastinum and cardiac silhouette are stable. Perihilar and lower lobe opacities suggesting elements of atelectasis/consolidation as well as small bilateral pleural effusions appear slightly more pronounced than recent prior examinations. No pneumothorax. Skeletal structures intact. IMPRESSION: Increasing perihilar and lower lobe opacities and small pleural effusions. Differential diagnosis includes pulmonary vascular congestion and infectious/inflammatory change. <Electronically signed by Merrick Solitario > 06/18/20 0629
--- NOTE | 2020-06-18 08:01 | CR ---
ORTHOPEDICS CONSULTATION DATE OF CONSULTATION: 06/14/2020 REASON FOR CONSULTATION: Asked to evaluate compression of cauda equina on lumbar spine. HISTORY OF PRESENT ILLNESS: Nacho is a 69-year-old gentleman who has recently been having paresthesias in the upper and lower extremities and weakness which was first appreciated apparently after a flu shot. He is also suffering from suicidal ideation. Also recently had a fall, but apparently after the symptoms had begun. Had imaging studies to evaluate for mechanical causes of weakness which included a lumbar MRI which reflected significant spinal stenosis at L4-5 and L2-3 with some compression of the cauda equina. He has also had a cervical spine MRI that reflects degenerative spondylosis and moderate spinal stenosis, but no cord signal change or no significant cord deformity. A Rodriguez has been placed recently for urinary retention. Apparently the patient has had episodes of urinary retention in the past and is able to urinate better in the morning and has trouble in the evenings and that is long standing; however, that did become worse with his hospitalization. IMAGING STUDIES: MRI lumbar reviewed, significant spinal stenosis that is moderate to severe at 4-5 and 2-3, but this does appreciate to reflect significant chronicity. Cervical MRI as described above. CLINICAL EXAMINATION: He is alert. He is reasonably cooperative. He is a very difficult historian. He is not in distress. He seems to have healthy skin face, upper and lower extremities. Consistent with previous reported exams appreciate weakness in the upper and lower extremities including iliopsoas about 4/5, quadriceps about 5/5, gastrocs 5/5, tibia 4/5, decreased sensation in the feet, but not the thighs and legs. Rectal: Patient had a positive voluntary rectal tone and appreciated sensation. Patient had a positive appreciated sensation with Rodriguez tug. Upper extremities: Decreased sensation is reported in the hands. IMPRESSION: Multiple issues that likely contribute towards neurologic deficits. RECOMMENDATIONS: From the perspective of cauda equina syndrome which I was asked to evaluate for in my opinion this patient does not have an acute cauda equina syndrome. He does have relatively severe and chronic spinal stenosis and once his other issues are resolved or clarified electively he may consider decompression of the lumbar spine via a unilateral laminectomy at least at 4-5. In my opinion currently there is not a role for an emergency compression. I reviewed this patient's case with Dr. Poon, neurology, and we are in agreement. The patient could be followed up electively. Essentially if discharged I would be happy to see him at any point in the future. DERIAN
--- NOTE | 2020-06-18 08:05 | CR ---
NEUROLOGY CONSULTATION DATE OF CONSULTATION: 06/15/2020 REASON FOR CONSULTATION: Weakness of the arms and legs. HISTORY OF PRESENT ILLNESS: Nacho Connell is a 69-year-old male with a past medical history significant for type-2 diabetes, hypertension, hyperlipidemia with diabetic neuropathy affecting the toes presenting to [facility] with the chief complaint of experiencing paresthesias of the right arm 3 nights ago at 2:00 in the morning and several hours later experienced paresthesias of the left hand and arm. The patient the following day noticed that he started to develop paresthesias worsening in the lower extremities followed by progressive weakness. By the next day which is today the patient had significant weakness and a fall. In the Emergency Department he was noted to have loss of reflexes which may be contributed from his diabetes. MRI of the lumbar spine revealed severe stenosis at the level of L4-5 with comment of cauda equina compression at the L4-5 level. It was noted that the AP dimension was 2.8 mm. The cauda equina element shows sight buckling above this level. The patient was then being assessed for possible cauda equina syndrome. He also stated he started to develop urinary retention earlier in the day. He states off and on he has difficulty urinating; however, this was significantly different and he could not urinate at all and required a Rodriguez catheter to be placed while he was in the ICU. All of today he states the paresthesias and weakness have now worsened, he feels that the numbness is up to mid-cabrera in both legs and involving the hands bilaterally. He has profound weakness of the upper extremities and lower extremities distally. He has reasonable strength in his quadriceps 4+/5, but has significant weakness in bilateral iliopsoas. He states all this is new for him. MRI of the cervical spine was requested which revealed flattening of the central border of the spinal cord at C3-4 and compression of the cervical spinal cord at C4-5 level without any myelomalacia cord signal changes. MRI of the thoracic spine was read as slight increase in signal at the T9-T10 lower thoracic spinal cord seen on STIR images although signal was not confirmed on axial images. Closed contrast studies were recommended. Patient did not have any thoracic cord compression at that level. The patient was given I.V. 10 mg dexamethasone as well as I.V. 10 mg Reglan in preparation of possible surgical decompression of the lumbar spine and radiographically recorded cauda equine syndrome. Upon further evaluation by orthopaedic spine surgeon Dr. Jayant Roper the patient does have reasonable sensation in the S2-3 region and reasonable rectal tone for his age. The patient was deemed not to have cauda equina syndrome at the present moment, but clinically has severe spinal stenosis which will likely need decompressive surgery in an outpatient elective setting. At this point in time the patient is in agreement to pursue spinal tap to assess for elevated protein and consider treatment for suspected Guillain-[place] syndrome. The cervical spine clearly shows cord compression; however, this also does not need immediate surgical intervention at this time. Clinically the patient did receive a flu vaccination 2 weeks ago, had a bout of diarrhea within the past week which self resolved. 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 He will require ICU monitoring and repeat NIF testing. PAST MEDICAL HISTORY: 1. Hypertension. 2. Diabetes with diabetic neuropathy. 3. Hyperlipidemia. 4. Lumbar spinal stenosis. 5. Cervical spinal stenosis. 6. Vitamin D deficiency. 7. BPH. PAST SURGICAL HISTORY: None listed. SOCIAL HISTORY: Patient is a former smoker. Denies use of any alcohol or drugs. FAMILY HISTORY: Noncontributory. ALLERGIES: LATEX. HOME MEDICATIONS: * Aspirin 81 mg. * Cholecalciferol. * Gabapentin. * Lisinopril. * Loratadine. * Metformin. * Multivitamin. * [place] 3. * Omeprazole. * Rosuvastatin. * Onglyza. * Acarbose. * Ibuprofen. * Naproxen as needed. PHYSICAL EXAMINATION: Blood pressure 162/75, pulse rate 87, respiratory rate 19, oxygenation 91% on room air. Patient is oriented to person, place and time. Speech and language comprehension and oral interpretation are intact. Pupils are 3 mm round, reactive to light, extraocular movements are intact. There is no facial weakness. Tongue is midline. Hearing is equal to finger rub. The patient has paresthesias to light touch involving the forearms and hands bilaterally and the lower extremities lateral lower legs moreso than the medial and involving the whole foot. Deep tendon reflexes are absent at the Achilles and patellas and biceps and 1+ at the triceps. Patient has 4/5 weakness in the biceps, triceps, hand licensed land surveyor. Iliopsoas is 3+, quadriceps are 4+, tibialis anterior are 4-. Coordination without any signs of ataxia or dysmetria. Gait deferred. ASSESSMENT: 69-year-old male with 72 hours of progressive symptoms including paresthesias in the arms followed by paresthesias in the legs associated with weakness of bilateral arms and lower extremities with sudden change in baseline, radiographic evidence of possible cauda equina syndrome versus severe spinal stenosis the latter most likely with cervical spinal stenosis, cord compression without myelopathic changes on radiograph images and incidental T9-T10 possible cord signal changes without spinal stenosis. Differentials include spinal stenosis etiology of numbness and weakness. Other differentials include Guillain-Denver syndrome, cervical myelopathy with concurrent diabetic polyneuropathy. PLAN: 1. Obtain spinal tap. Check for elevated CSF protein. If consistent with Guillain-Denver syndrome start IVIG therapy for 5 days. 2. PT/OT eval. 3. Surgical evaluation already completed. 4. Outpatient follow up recommended for surgical decompression of the lumbar spine. 5. Patient would benefit with EMG nerve conduction studies as outpatient. 6. Continue supportive care. 7. Check NIF every 6 hours. MTDD
--- NOTE | 2020-06-18 08:09 | RO ---
DATE OF OPERATION: 06/17/2020 PREOPERATIVE DIAGNOSIS: Respiratory failure. POSTOPERATIVE DIAGNOSIS: Respiratory failure PROCEDURE: Endotracheal intubation PROCEDURALIST: Wm Warner DO INTERRELATED SPECIAL EDUCATION TEACHER: None. ANESTHESIA: Etomidate 20 mg, 15 mg of rocuronium DESCRIPTION OF PROCEDURE: I was called because the patient had an aspiration event, had desaturation after that. I came in to simply evaluate the patient and to ensure that he was able to continue to protect his airway. He did have a decent cough. Arterial blood gas showed the start of Co2 retention. He appeared more weak especially in the upper extremities unable to hold his head up; and therefore at that point in time, a decision was made to proceed with intubation. Daughter was called after the procedure. The patient was placed in a sniffing position, pre-oxygenation was performed RSI was used with etomidate and rocuronium. A glide scope #3 was used to view the posterior pharynx with a grade 1 view. 8.0 cast tube was placed and secured at 24 at the lip. This was easily performed. A stylus was removed and tidal Co2 monitoring showed color change, bilateral breath sounds were present and normal chest movement. There was no decline in oxygen saturation. Oxygen saturations remained above 93% during the intubation. Posterior procedure chest x-ray is pending. [facility]
--- NOTE | 2020-06-18 08:12 | CR ---
CRITICAL CARE CONSULTATION NOTE DATE: 06/17/2020 Critical care time was one hour. This excludes all procedures. SUBJECTIVE: I was asked by Dr. Cortés and Dr. Contreras to see this 69-year-old male who has multiple neurologic causes of weakness, initially diagnosed with severe canal stenosis of the lumbar spine, questionable cauda equina, then later developed upper extremity weakness, had evidence of cervical disk issues but eventually had spinal tap and was diagnosed with Guillain-[place]. It was thought that this was likely secondary to an influenza vaccine that was administered approximately 2 weeks ago. The patient has had progressive weakness but also significant symptoms of depression. He has a sitter. He has been expressing to the nursing staff that he has been trying to off himself for the past 2 years. He has situational stressors. Upon my entering the room, the patient was eating. He had no difficulty swallowing. He was able to protect his own airway. He had no coughing with eating. He does state that he is unable to move his arms and legs, however when I asked him to lift his arm, he was actually pressing down in the opposite direction. He on physical exam as outlined below, is able to take a fairly good deep breath in. NIFs range depending on his effort, but there was a NIF measured this morning at -40. He has had no fever, chills. He does not feel short of breath. He just feels uncomfortable in bed. He states he feels like he needs to adjust position frequently. We had a lengthy discussion regarding the possibility of requiring intubation and he states he would consent to intubation if needed and he would want resuscitation at this point in time, and therefore he remains full code. PHYSICAL EXAMINATION: Temperature is 96.2, pulse is 82, respiratory rate is 18, blood pressure tends to be on the high side with the highest blood pressure yesterday at 4:00 AM of 192 systolic, now 142/65. Oxygen saturation is 94% on 2 liters. GENERAL APPEARANCE: Awake, alert, oriented. Admits to depression but speech is clear and non-tangential. Affect and mood are appropriate. HEENT: Sclerae clear and anicteric. Pupils are equal and reactive to light. Mucous membranes moist without lesions. Tongue is midline. Mallampati 3. NECK: Supple. No tracheal deviation or mass. LYMPH: No cervical or supraclavicular or axillary adenopathy. CARDIAC: Regular, S1, S2 without audible murmurs, rubs or gallops. No elevated JVP. No systemic edema. PULMONARY: Clear to auscultation without rales, rhonchi or wheezes. Able to take a deep breath in. It does appear that he is moving his diaphragms due to the inspiratory excursion that he possessed this morning. ABDOMEN: Soft, nontender, nondistended. No hepatosplenomegaly. No masses or hernia. EXTREMITIES: No clubbing, cyanosis, or edema. There are n.p.o. boots in place. LABORATORY EVALUATION: White blood cell count is 5.1, hemoglobin 12.8, hematocrit of 40.5, platelet count of 114. Sodium is down to 133. BUN of 25, creatinine of 0.81 with a fasting glucose of 259. Magnesium is 1.4. Arterial blood gas from 06/16 shows a pH of 7.38, pco2 of 44, pao2 of 82. That was yesterday at 2:45. CSF gram stain showed no organisms. The NIFs have been ranging anywhere from -20 to as high as -50 this morning. We were able to obtain a -40 NIF. I do believe the NIFs fluctuate some with patient effort. IMAGING: Last chest x-ray was on 06/14/2020 which shows mild cardiomegaly. However this is difficult to assess as this was a portable film. Trachea is quite patent and midline and no pulmonary infiltrates. IMPRESSION: A 69-year-old male with 1. Guillain [place] with risk for requiring intubation, mechanical ventilation due to muscle weakness. At this point in time I believe he does not require this. Of note, it goes without saying that if RSI is to be performed on this patient, no succinyl choline should be used. In the meantime, because he has enough strength, I think he can eat. If his strength declines over time, we will make him n.p.o. in anticipation for intubation. I will closely monitor him in the ICU for respiratory failure. I will obtain a chest x-ray in the AM to monitor for atelectasis and hypoventilation. If he should decompensate more quickly than expected, please call me on an urgent basis. DERIAN
[2020-06-18] MEDS: PANTOPRAZOLE 40MG VIAL (C9113 PER 1) IV SCH (09:49)
[2020-06-18] MEDS: ENOXAPARIN 40MG/0.4ML SYRINGE (J1650 PER 10MG) SC SCH (09:49)
[2020-06-18] MEDS: CHLORHEXIDINE GLUCONATE 0.12 % 15ML UDC (PERIDEX ORAL RINSE) MT SCH ×2 (09:49→20:26)
[2020-06-18] MEDS: LIDOCAINE 5% (LIDODERM) PATCH TD SCH (09:50)
[2020-06-18] MEDS: LEVEMIR (INSULIN DETEMIR) 1 UNITS/0.01ML SC SCH ×2 (09:50→20:26)
[2020-06-18] MEDS ORDERED: propofoL 200 MG/20 ML VIAL ONE (11:21)
[2020-06-18] MEDS ORDERED: ETOMIDATE INJ 20MG/10ML VIAL ONE (11:21)
[2020-06-18] MEDS ORDERED: ROCURONIUM BROMIDE 50 MG/5 ML VIAL ONE (11:21)
--- NOTE | 2020-06-18 14:11 | CCN ---
DATE: 06/18/2020 Dictated by JOE Nagel in conjunction with supervising physician, Wm Warner D.O. SUBJECTIVE: Mr. Connell is seen in the intensive care unit (ICU). He is currently on the ventilator. He did open his eyes during our exam. Nursing notes no new issues. Nursing notes that his urine output is generally between 35 and 50 mL every two hours. Nursing denies any fevers. OBJECTIVE: VITAL SIGNS: Temperature 97.1, pulse 68, respiratory rate 16, blood pressure currently is 113/59, pulse ox is 97%. Patient is on the ventilator volume controlled, tidal volume of 470, rate of 16, PEEP of 8, FiO2 of 40. GENERAL: Patient remains sedate. Did open his eyes during the course of our exam. HEENT: Head is normocephalic, atraumatic. Patient remains on the ventilator as noted above. Pupils are equal and reactive. Tongue is midline. NECK: Supple. No cervical lymphadenopathy. No JVD. Trachea is midline. PULMONARY: Clear to auscultation bilaterally. No wheezes, rales, rhonchi, or crackles. HEART: Regular rate and rhythm. S1, S2. No murmurs. ABDOMEN: Positive bowel sounds, soft, and nontender. No rebound or guarding. EXTREMITIES: No clubbing, cyanosis, or edema. SKIN: Warm and dry. MPO boots in place. LABORATORY DATA: WBC 5.9, hemoglobin 12.6, hematocrit 40.6, platelets 102,000. Sodium 133, potassium 4.1, chloride 101, carbon dioxide 25, BUN 37, creatinine 1.26, glucose 177, calcium 7.3, magnesium 1.8. PH 7.369, pCO2 of 43.1, pO2 of 93.6. IMAGING: Chest x-ray does show blunting of the costophrenic angles. Tip of the endotracheal tube appears to be about 4.5-5 cm from the blanco. ASSESSMENT AND PLAN: 1. Acute respiratory failure secondary to Guillain-[place] syndrome. Patient remains on the ventilator. Will continue to monitor. He is on immunoglobulin for Guillain-[place] syndrome. Blood pressures have improved, but the patient is on Propofol and therefore, he has not received either labetalol or hydralazine since 06/17/2020. Continue to monitor blood pressures closely. 2. Nutrition. We will start tube feeds through the orogastric tube and place the patient on Glucerna 1.2 at 30 mL/hour. 3. Diabetes. Patient is on Levemir 7 units b.i.d. and sliding scale with fingersticks q. 6 hours. Total Critical Care time excluding all procedures was 41 minutes. MTDD
[2020-06-18] MEDS: IMMUNE GLOBULIN 10% 40 GM in IV 1 EA IV SCH (14:16)
[2020-06-18] MEDS: MORPHINE 2 MG/ML 1ML VIAL (J2270) IV PRN (20:27)
[2020-06-18] MEDS: **NOTE PATIENT COMMENT** MISC XX SCH (20:27)
[2020-06-19] VITALS (44 sets, daily range): BP systolic 96–209; BP diastolic 50–113; O2SAT 97
[2020-06-19] MEDS: KETOROLAC 30 MG/ML 1ML VIAL IV SCH ×2 (00:03→06:19)
[2020-06-19] MEDS: HumaLOG INSULIN (NovoLOG) PER UNIT SC SCH ×4 (00:03→18:00)
[2020-06-19] MEDS: propofoL 1,000 MG in IV 1 EA IV SCH ×4 (00:04→16:35)
[2020-06-19] MEDS: ALBUTEROL SULFATE 2.5 MG/0.5 ML INH NEB SOLN NEB SCH ×7 (00:31→23:38)
[2020-06-19] MEDS: ONDANSETRON 4MG/2ML VIAL IV SCH ×4 (03:15→19:51)
[2020-06-19] MEDS: PIPERACILLIN/TAZOBACTAM SOD 3.375 GM in D5W MINI-BAG PLUS 50 ML IV SCH ×4 (03:16→19:51)
[2020-06-19 05:34] LABS: HEMATOCRIT 39.7 % (42.0-52.0); HEMOGLOBIN 12.8 g/dl (13.5-17.5); MEAN CORPUSCULAR HEMOGLOBIN 27.2 pg (27.0-33.0); MEAN CORPUSCULAR HGB CONC 32.2 g/dl (32.0-36.5); MEAN CORPUSCULAR VOLUME 84.5 fl (80.0-96.0); WHITE BLOOD COUNT 6.9 10^3/uL (4.0-10.0)
[2020-06-19 05:42] LABS: PLATELET COUNT, AUTOMATED 87 10^3/uL (150-450)
[2020-06-19 05:55] LABS: CALCIUM LEVEL 7.9 MG/DL (8.8-10.2); CREATININE FOR GFR 1.33 MG/DL (0.70-1.30); GLOMERULAR FILTRATION RATE 56.4 (>42); MAGNESIUM LEVEL 2.1 MG/DL (1.8-2.4)
[2020-06-19 05:56] LABS: EOSINOPHILS 1 % (0-3); LYMPHOCYTES 12 % (16-44); MONOCYTES 5 % (0-5); NEUTROPHILS 82 % (28-66); PLATELET ESTIMATE DECREASED (NORMAL)
[2020-06-19 05:58] LABS: ABG HCO3 27.1 MEQ/L (22.0-26.0); ABG O2 SATURATION 96.1 % (95.0-99.0); ABG PARTIAL PRESSURE CO2 44.2 mmHg (35.0-45.0); ABG PARTIAL PRESSURE O2 82.8 mmHg (75.0-100.0); ABG STANDARD HCO3 26.2 MEQ/L (22.0-26.0); ABG TOTAL CO2 28.4 MEQ/L (23.0-31.0); ABG pH (ARTERIAL) 7.405 UNITS (7.350-7.450)
--- NOTE | 2020-06-19 07:49 | REP ---
INDICATION: respiratory failure COMPARISON: 06/18/2020 TECHNIQUE: Portable AP view of the chest FINDINGS: Endotracheal tube 3 cm above the blanco. Nasogastric tube courses below left hemidiaphragm. Bibasilar opacities suggesting atelectasis and small pleural effusions are essentially unchanged. No pneumothorax. Visualized portions of the mediastinum and cardiac silhouette are stable/normal. Skeletal structures intact. IMPRESSION: [id number] bibasilar opacities suggesting atelectasis and small pleural effusions unchanged. <Electronically signed by Merrick Solitario > 06/19/20 0746
[2020-06-19] MEDS: PANTOPRAZOLE 40MG VIAL (C9113 PER 1) IV SCH (08:01)
[2020-06-19] MEDS: CHLORHEXIDINE GLUCONATE 0.12 % 15ML UDC (PERIDEX ORAL RINSE) MT SCH ×2 (08:01→20:20)
[2020-06-19] MEDS: ENOXAPARIN 40MG/0.4ML SYRINGE (J1650 PER 10MG) SC SCH (08:02)
[2020-06-19] MEDS: LIDOCAINE 5% (LIDODERM) PATCH TD SCH (09:49)
[2020-06-19] MEDS: LEVEMIR (INSULIN DETEMIR) 1 UNITS/0.01ML SC SCH ×2 (09:49→20:20)
--- NOTE | 2020-06-19 11:37 | MHIPNPDOC ---
[facility] Progress Note Progress Note Reviewed patient's chart, as consult completed on on 06/14, was pending medical clearance patient appears to be acutely seriously ill, would recommend deferring psychiatric admission (or medicines) at this time until more stable, reevaluation will need to be called once patient is medically cleared, which appears to be sometime off from now. Call back this psychiatrist or on-call psychiatrist if this one isn't available once fully medically cleared (ie would not need any further medical treatment) for re-evaluation. Vital Signs Vital Signs Date Time Temp Pulse Resp B/P (MAP) Pulse Ox O2 Delivery O2 Flow Rate FiO2 06/19/20 11:00 81 139/67 (91) 95 Ventilator 40 06/19/20 08:00 99.8 19 06/17/20 19:58 5.0 Laboratory Data 24H Labs Laboratory Tests 2 06/18/20 12:19: Bedside Glucose (Misc Panel) 189H 06/18/20 17:39: Bedside Glucose (Misc Panel) 199H 06/18/20 23:42: Bedside Glucose (Misc Panel) 211H 06/19/20 05:25: Neutrophils (%) (Auto) , Nucleated Red Blood Cells % (auto) 0.0, Neutrophils 82H, Lymphocytes (Manual) 12L, Monocytes (Manual) 5, Eosinophils (Manual) 1, Red Blood Cell Morphology NORMAL, Platelet Estimate DECREASED, Immature Platelet Fraction 1.1, Anion Gap 5L, Glomerular Filtration Rate 56.4, Calcium Level 7.9L, Magnesium Level 2.1 06/19/20 05:38: Blood Gas Bicarbonate Standard 26.2H, Arterial Blood pH 7.405, Arterial Blood Partial Pressure CO2 44.2, Arterial Blood Partial Pressure O2 82.8, Arterial Blood Total CO2 28.4, Arterial Blood HCO3 27.1H, Arterial Blood Base Excess 2.0, Arterial Blood Oxygen Saturation 96.1 06/19/20 09:48: Bedside Glucose (Misc Panel) 219H CBC/BMP Laboratory Tests 06/19/20 05:25 Current Medications Current Medications Medications (Trade) Dose Ordered Sig/Gabrielle Route PRN Reason Start Time Stop Time Status Last Admin Dose Admin Acetaminophen (Tylenol Tab) 650 mg Q4H PRN PO PAIN OR FEVER 06/14/20 10:30 06/17/20 20:07 DC 06/17/20 06:45 Albuterol Sulfate (Proventil Neb) 2.5 mg RQ4H NEB 06/17/20 20:00 06/19/20 11:30 Amlodipine Besylate (Norvasc) 10 mg DAILY PO 06/16/20 08:00 06/17/20 19:33 DC 06/17/20 09:04 Aspirin (Ecotrin) 81 mg Q2D PO 06/15/20 09:00 06/17/20 19:33 DC 06/17/20 09:03 Chlorhexidine Gluconate (Peridex Oral Rinse) SWAB/BRUSH ORAL CAVITY BID MT 06/17/20 21:00 06/19/20 08:01 Dextrose (Dextrose 50%) 25 ml ASDIRECTED PRN IV SEE LABEL COMMENTS 06/14/20 11:15 Docusate Sodium (Colace) 100 mg BID PO 06/16/20 09:00 06/17/20 19:33 DC 06/17/20 09:04 Enoxaparin Sodium (Lovenox) 40 mg DAILY SC 06/15/20 09:00 06/19/20 08:02 Etomidate (Amidate) 20 mg STAT STAT IV 06/17/20 20:41 06/17/20 20:57 DC 06/17/20 21:09 Gabapentin (Neurontin) 400 mg TID PO 06/17/20 13:15 06/17/20 19:33 DC 06/17/20 13:24 Gabapentin (Neurontin) 1,200 mg QHS PO 06/14/20 21:00 06/17/20 13:07 DC 06/16/20 20:13 Glucagon (Glucagon) 1 mg ASDIRECTED PRN SC SEE LABEL COMMENTS 06/14/20 11:15 Glucose (Glucose) 16 GM ASDIRECTED PRN PO SEE LABEL COMMENTS 06/14/20 11:15 Home Med (Med Rec Complete!) ASDIRECTED XX 06/14/20 11:15 06/14/20 11:10 DC Hydralazine HCl (Apresoline) 10 mg Q1H PRN IV htn 06/16/20 10:45 06/17/20 17:19 Hydralazine HCl (Apresoline) 10 mg STAT STAT IV 06/16/20 10:44 06/16/20 10:46 DC Hydralazine HCl (Apresoline) 50 mg Q6H PRN PO HTN 06/16/20 09:00 06/17/20 19:33 DC 06/17/20 06:45 Ibuprofen (Advil) 800 mg Q8HP PRN PO MODERATE PAIN (PS 5-7) 06/15/20 08:15 06/16/20 09:10 DC 06/15/20 23:10 Immune Globulin 40 gm/IV Miscellaneous Supplies 400 ml @ 0 mls/hr Q24H IV 06/15/20 13:00 06/19/20 13:01 06/18/20 14:16 Insulin Detemir (Levemir Insulin) 7 units BID SC 06/17/20 09:00 06/19/20 09:49 Insulin Detemir (Levemir Insulin) 10 units DAILY SC 06/15/20 12:00 06/17/20 07:55 DC 06/16/20 08:02 Insulin Human Lispro (HumaLOG INSULIN) SEE PROTOCOL TABLE AC UT 06/14/20 12:00 06/17/20 20:57 DC 06/17/20 17:50 Insulin Human Lispro (HumaLOG INSULIN) SEE PROTOCOL TABLE Q6H UT 06/17/20 18:00 06/19/20 06:20 Insulin Human Lispro (HumaLOG INSULIN) SEE PROTOCOL TABLE QHS UT 06/14/20 21:00 06/17/20 20:57 DC Ketorolac Tromethamine (ToRADol) 30 mg Q6H IV 06/17/20 18:00 06/19/20 08:52 DC 06/19/20 06:19 Labetalol HCl (Normodyne, Trandate) 20 mg Q1H PRN IV htn 06/14/20 10:45 06/17/20 03:22 Lidocaine (Lidoderm Patch) 2 patch DAILY TD 06/16/20 09:00 06/19/20 09:49 Lisinopril (Prinivil) 20 mg DAILY PO 06/15/20 09:00 06/15/20 11:15 DC 06/15/20 08:33 Lisinopril (Prinivil) 40 mg DAILY PO 06/16/20 09:00 06/17/20 19:33 DC 06/17/20 09:03 Loratadine (Claritin) 10 mg DAILY PO 06/14/20 09:00 11/8/20 19:33 DC 06/17/20 09:05 Midazolam HCl (Versed) 2 mg Q15MP PRN IV AGITATION 06/17/20 20:15 Morphine Sulfate (Morphine Sulfate Inj) 1 mg Q4H PRN IV PAIN LEVEL 7-10 06/16/20 09:00 06/16/20 10:48 DC Morphine Sulfate (Morphine Sulfate Inj) 2 mg Q4H PRN IV PAIN LEVEL 7-10 06/16/20 13:00 06/18/20 20:27 Non-Formulary Medication ( See Comment Field Below ) REMOVE LIDODERM PATCH DAILY@21 XX 06/16/20 21:00 06/18/20 20:27 Omeprazole (PriLOSEC) 20 mg DAILY PO 06/14/20 09:00 06/17/20 19:33 DC 06/17/20 09:04 Ondansetron HCl (ZOFRAN INJection) 4 mg Q6H IV 06/17/20 08:00 06/19/20 08:01 Pantoprazole Sodium (Protonix) 40 mg DAILY IV 06/18/20 09:00 06/19/20 08:01 Paroxetine HCl (PAXil) 10 mg DAILY PO 06/15/20 09:00 06/17/20 19:33 DC 06/17/20 09:05 Piperacillin Sod/ Tazobactam Sod 3.375 gm/Dextrose 50 ml @ 50 mls/hr Q6H IV 06/17/20 20:00 06/19/20 08:01 Polyethylene Glycol (Miralax) 1 pkt DAILYPRN PRN PO CONSTIPATION 06/16/20 09:00 Propofol 1000 mg/ IV Miscellaneous Supplies 100 ml @ 6.03 mls/hr [id number] IV 06/17/20 20:10 06/19/20 09:49 Ramelteon (Rozerem) 8 mg QHS PRN PO INSOMNIA 06/16/20 00:15 06/17/20 19:33 DC 06/16/20 20:13 Rocuronium [place] (Zemuron) 50 mg ASDIRECTED IV 06/17/20 20:45 06/17/20 22:30 DC 06/17/20 21:30 Rosuvastatin Calcium (Crestor) 40 mg QPM PO 06/14/20 21:00 06/17/20 19:33 DC 06/16/20 20:11 Sodium Chloride 1,000 ml @ 120 mls/hr Q8H20M IV 06/16/20 09:30 06/17/20 20:07 DC 06/17/20 13:38 Tramadol HCl (Ultram) 50 mg Q6HP PRN PO MODERATE PAIN (PS 5-7) 06/16/20 09:00 06/17/20 19:33 DC 06/17/20 06:46 Vitamin D (Vitamin D) 1,000 units DAILY PO 06/14/20 09:00 06/17/20 19:33 DC 06/17/20 09:04 Allergies Coded Allergies: latex (Verified Allergy, Intermediate, blisters, 03/14/19) DEIRDRE BOWDEN DO Jun 19, 2020 11:37
[2020-06-19] MEDS: MORPHINE 2 MG/ML 1ML VIAL (J2270) IV PRN (13:03)
--- NOTE | 2020-06-19 13:20 | CCN ---
DATE: 06/19/2020 Dictated by JOE Nagel in conjunction with supervising physician, Wm Warner D.O. SUBJECTIVE: Mr. Connell is seen in the intensive care unit (ICU). He remains on the ventilator. Nursing reports no significant new issues, although the patient did require some increased sedation during the night. Otherwise, he has been without any significant incidences. Nursing reports the patient has remained afebrile. Urine output is between 75 and 100 mL every two hours. OBJECTIVE: VITAL SIGNS: Temperature is 98.1, pulse is 93, blood pressure is 141/64, respiratory rate 21, pulse ox 95%. Patient is on the ventilator on PRVC with a tidal volume of 470, rate of 60, PEEP of 8, and FiO2 of 40. GENERAL: The patient remains sedated. He is on the ventilator. He did open his eyes and did follow commands during the course of the exam. HEENT: Head is normocephalic, atraumatic. Pupils are equal and reactive. Tongue is midline. NECK: Supple. No cervical lymphadenopathy. No jugular venous distention (JVD). Trachea is midline. PULMONARY: Clear to auscultation bilaterally. No wheezes, rales, rhonchi, or crackles. HEART: Regular rate and rhythm. S1, S2. No murmurs. ABDOMEN: Positive bowel sounds, soft, and nontender. No rebound. No guarding. EXTREMITIES: No clubbing, cyanosis, or edema. Patient has MPO boots in place. SKIN: Warm and dry. LABORATORY DATA: ABG with pH of 7.41, pCO2 of 44, pO2 of 83. WBC 6.9, hemoglobin 12.8, hematocrit 39.7, platelets 87,000. Sodium 132, potassium 4.0, chloride 102, carbon dioxide 25, BUN 45, creatinine 1.33, blood sugar 187, calcium 7.9, magnesium 2.1. On the monitor the patient is in bigeminy. On chest x-ray, there is blunting of the costophrenic angles. The tip of the endotracheal tube is 3.7 cm above the blanco. ASSESSMENT AND PLAN: 1. Acute respiratory failure secondary to Guillain-[place] syndrome. The patient remains on the ventilator. He was trialed on pressure support and his tidal volumes were consistently in the high 400s. He may be nearing extubation, but he is not ready yet. He will be continued on pressure-regulated volume control (PRVC) with tidal volumes 480 with a rate of 15. The patient did have an episode of aspiration and therefore, he was initiated on Zosyn. We will continue him on Zosyn for now, but we will continue to assess this on a day-to-day basis. 2. Guillain-[place] syndrome. The patient is on immunoglobulin. Continue to monitor closely. 3. Nutrition. The patient is getting tube feeds with Glucerna. We will increase it to 60 mL/hour. MTDD
[2020-06-19] MEDS: IMMUNE GLOBULIN 10% 40 GM in IV 1 EA IV SCH (14:41)
[2020-06-19] MEDS: hydrALAZINE 20MG/ML 1ML VIAL (J0360 PER 20MG) IV PRN ×2 (16:47→20:02)
--- NOTE | 2020-06-19 18:13 | ECGEPIP ---
[facility] Test Date: 2020-06-19 Pat Name: ONDINA CLEANING Department: Room: [place] [address] Gender: Male Complaint Operator: : [id number] Requested By: MATTHEW Long Order Number: [id number] Reading MD: Sixto Young Measurements Intervals [place] Rate: 89 P: 72 SD: 172 QRS: 71 QRSD: 176 T: 38 QT: 380 QTc: 464 Interpretive Statements Normal sinus rhythm with bigeminal PVCs and blocked PAC Right bundle branch block Compared to prior tracing of 06/14/2020, ventricular ectopy is new Electronically Signed on 06-19-2020 18:12:45 EST by Sixto Young
[2020-06-19] MEDS: **NOTE PATIENT COMMENT** MISC XX SCH (20:20)
[2020-06-20] VITALS (35 sets, daily range): BP systolic 111–195; BP diastolic 54–111; O2SAT 93
[2020-06-20] MEDS: HumaLOG INSULIN (NovoLOG) PER UNIT SC SCH ×5 (00:14→23:52)
[2020-06-20] MEDS: MORPHINE 2 MG/ML 1ML VIAL (J2270) IV PRN ×3 (00:15→21:27)
[2020-06-20] MEDS: ONDANSETRON 4MG/2ML VIAL IV SCH ×4 (01:17→21:24)
[2020-06-20] MEDS: propofoL 1,000 MG in IV 1 EA IV SCH ×3 (01:17→20:47)
[2020-06-20] MEDS: PIPERACILLIN/TAZOBACTAM SOD 3.375 GM in D5W MINI-BAG PLUS 50 ML IV SCH ×4 (01:18→21:24)
[2020-06-20 04:43] LABS: BASO % 0.5 % (0.0-1.0); EOS % 0.4 % (0.0-3.0); HEMATOCRIT 39.2 % (42.0-52.0); HEMOGLOBIN 12.7 g/dl (13.5-17.5); LYMPH # 0.9 10^3/uL (1.5-5.0); LYMPH % 10.5 % (24.0-44.0); MEAN CORPUSCULAR HEMOGLOBIN 27.1 pg (27.0-33.0); MEAN CORPUSCULAR HGB CONC 32.4 g/dl (32.0-36.5); MEAN CORPUSCULAR VOLUME 83.8 fl (80.0-96.0); MONO # 0.9 10^3/uL (0.0-0.8); MONO % 10.3 % (0.0-5.0); NEUTROPHILS # 6.5 10^3/uL (1.5-8.5); NEUTROPHILS % 77.6 % (36.0-66.0); PLATELET COUNT, AUTOMATED 118 10^3/uL (150-450); RED BLOOD COUNT 4.68 10^6/uL (4.30-6.10); WHITE BLOOD COUNT 8.4 10^3/uL (4.0-10.0)
[2020-06-20] MEDS: ALBUTEROL SULFATE 2.5 MG/0.5 ML INH NEB SOLN NEB SCH ×5 (04:51→19:53)
[2020-06-20 05:04] LABS: CALCIUM LEVEL 8.3 MG/DL (8.8-10.2); CREATININE FOR GFR 1.51 MG/DL (0.70-1.30); GLOMERULAR FILTRATION RATE 48.7 (>42); MAGNESIUM LEVEL 2.5 MG/DL (1.8-2.4); POTASSIUM SERUM 3.9 MEQ/L (3.5-5.1)
[2020-06-20 06:07] LABS: ABG BASE EXCESS 3.2 (-2.0-2.0); ABG HCO3 27.3 MEQ/L (22.0-26.0); ABG O2 SATURATION 96.9 % (95.0-99.0); ABG PARTIAL PRESSURE CO2 39.6 mmHg (35.0-45.0); ABG PARTIAL PRESSURE O2 82.7 mmHg (75.0-100.0); ABG STANDARD HCO3 27.3 MEQ/L (22.0-26.0); ABG TOTAL CO2 28.5 MEQ/L (23.0-31.0); ABG pH (ARTERIAL) 7.456 UNITS (7.350-7.450)
[2020-06-20] MEDS: hydrALAZINE 20MG/ML 1ML VIAL (J0360 PER 20MG) IV PRN (06:07)
--- NOTE | 2020-06-20 07:24 | REP ---
INDICATION: respiratory failure COMPARISON: 06/19/2020 TECHNIQUE: Portable AP view of the chest FINDINGS: Endotracheal tube and nasogastric tube are in stable satisfactory position. Bibasilar opacities suggesting elements of atelectasis/consolidation and small pleural effusions may be minimally improved from prior examination. No pneumothorax. Visualized mediastinum and cardiac silhouette are stable and grossly normal. IMPRESSION: Minimal improvement to the basilar opacities suggested <Electronically signed by Merrick Solitario > 06/20/20 [id number]
[2020-06-20] MEDS: ENOXAPARIN 40MG/0.4ML SYRINGE (J1650 PER 10MG) SC SCH (08:35)
[2020-06-20] MEDS: PANTOPRAZOLE 40MG VIAL (C9113 PER 1) IV SCH (08:35)
[2020-06-20] MEDS: LIDOCAINE 5% (LIDODERM) PATCH TD SCH (08:35)
[2020-06-20] MEDS: CHLORHEXIDINE GLUCONATE 0.12 % 15ML UDC (PERIDEX ORAL RINSE) MT SCH ×2 (08:36→21:26)
[2020-06-20] MEDS: LEVEMIR (INSULIN DETEMIR) 1 UNITS/0.01ML SC SCH ×2 (08:36→21:26)
--- NOTE | 2020-06-20 10:46 | CCN ---
DATE: 06/20/2020 Critical care time was 1 hour and 12 minutes. SUBJECTIVE: At bedside, the patient has no cough or gag reflex but does open his eyes to command. He is otherwise sleeping on my arrival to the room. No obvious distress while on mechanical ventilation, continues to require mechanical ventilation due to muscle weakness. Because he has no cough or gag reflex that he did have prior to intubation, I have elected not to extubate him today. He remains on 60 mL of 1.2 Eamon Glucerna for nutrition. He has MPO boots. He had copious amounts of secretions this morning. He remains on Zosyn for probable aspiration. PHYSICAL EXAMINATION: Temperature is 99.5, pulse is 69, respiratory rate is 20, blood pressure is 168/73 with a mean arterial pressure of 104, oxygen saturation 93% on 0.40 FiO2. Input and output net positive 584 yesterday. HEENT: Sclerae clear and anicteric. Pupils are equal and reactive to light. Mucous membranes are moist. He does have some irritation of the upper lip from the tube beckman. This has been adjusted to prevent friction. However, it does appear that it may start to look superficially infected. Therefore I am adding Bacitracin. Tongue is midline. Neck is supple. No tracheal deviation or mass. Lymph: No cervical or supraclavicular or axillary adenopathy. Cardiac: Regular, S1, S2 without audible murmurs, rubs or gallops. No elevated jugular venous pressure (JVP). Of note yesterday he was in bigeminy. Today much less ectopy. Pulmonary: Clear to auscultation except for rhonchi at the bases. No dullness to percussion. No accessory muscle use. No wheeze. Abdomen: Obese, soft, nontender, nondistended, no hepatosplenomegaly. No masses or hernia. Extremities: No clubbing, cyanosis, or edema. He is not spontaneously moving his extremities at this point in time. Neurologic: Awake, has minimal movement of the hand, can barely lift his hands more than a few inches off the bed. No evidence of tremor. No evidence of seizure activity. LABS: Laboratory evaluation shows a sodium of 133, potassium 3.9, chloride of 100, bicarb of 27, BUN of 57, creatinine of 1.51. Glucose is elevated at 322. White blood cell count of 8.4, hemoglobin of 12.7 with a platelet count of 178. Arterial blood gas shows a pH of 7.46, pCO2 of 48, and PaO2 of 83. Chest x-ray shows some possible vascular congestion. There is small bibasilar blunting of the costophrenic angles likely bilateral pleural effusions, very small. Endotracheal tube is approximately 5.5 cm above the blanco. We will adjust this appropriately. No mass. No dense consolidation present. No evidence of pneumothorax. IMPRESSION: 1. 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 Muscle weakness. At this point in time the patient has no gag or cough. Therefore we will continue mechanical ventilation until he has more neurologic recovery. He may require a tracheostomy. 2. Mild hyponatremia. Some hyperglycemia. We will address the hyperglycemia. I have increased the Levemir. 3. Deep venous thrombosis (DVT) prophylaxis with Lovenox. 4. GI prophylaxis with Protonix. 5. Hypertension. He has as needed labetalol and hydralazine. 6. The patient remains critically ill, high risk of requiring tracheostomy due to neurologic weakness. We will continue to monitor over the next week to see how his disease progresses and make a decision in about a weeks time. DERIAN
[2020-06-20] MEDS: BACITRACIN OINTMENT 30GM TUBE TOP SCH ×2 (11:05→21:25)
[2020-06-20] MEDS: **NOTE PATIENT COMMENT** MISC XX SCH (21:00)
[2020-06-20] MEDS: LABETALOL 100MG/20ML VIAL IV PRN (23:53)
[2020-06-20] MEDS: MIRALAX *UNIT DOSE* 17GM PACKET PO PRN (23:53)
[2020-06-21] VITALS (30 sets, daily range): BP systolic 111–201; BP diastolic 53–83; O2SAT 93–95
[2020-06-21] MEDS: ALBUTEROL SULFATE 2.5 MG/0.5 ML INH NEB SOLN NEB SCH ×6 (00:20→19:43)
[2020-06-21] MEDS: MORPHINE 2 MG/ML 1ML VIAL (J2270) IV PRN ×7 (01:06→23:07)
[2020-06-21] MEDS: ONDANSETRON 4MG/2ML VIAL IV SCH ×2 (01:06→07:29)
[2020-06-21] MEDS: PIPERACILLIN/TAZOBACTAM SOD 3.375 GM in D5W MINI-BAG PLUS 50 ML IV SCH ×4 (01:06→20:45)
[2020-06-21 04:46] LABS: BASO # 0.1 10^3/uL (0.0-0.2); EOS # 0.1 10^3/uL (0.0-0.5); EOS % 1.8 % (0.0-3.0); HEMATOCRIT 35.5 % (42.0-52.0); HEMOGLOBIN 11.3 g/dl (13.5-17.5); LYMPH # 0.8 10^3/uL (1.5-5.0); LYMPH % 13.5 % (24.0-44.0); MEAN CORPUSCULAR HEMOGLOBIN 26.7 pg (27.0-33.0); MEAN CORPUSCULAR HGB CONC 31.8 g/dl (32.0-36.5); MEAN CORPUSCULAR VOLUME 83.7 fl (80.0-96.0); MONO # 0.8 10^3/uL (0.0-0.8); MONO % 12.5 % (0.0-5.0); NEUTROPHILS # 4.3 10^3/uL (1.5-8.5); NEUTROPHILS % 70.2 % (36.0-66.0); PLATELET COUNT, AUTOMATED 120 10^3/uL (150-450); RED BLOOD COUNT 4.24 10^6/uL (4.30-6.10); WHITE BLOOD COUNT 6.1 10^3/uL (4.0-10.0)
[2020-06-21 05:06] LABS: CALCIUM LEVEL 8.5 MG/DL (8.8-10.2); CREATININE FOR GFR 1.48 MG/DL (0.70-1.30); GLOMERULAR FILTRATION RATE 49.9 (>42); MAGNESIUM LEVEL 2.2 MG/DL (1.8-2.4); POTASSIUM SERUM 3.9 MEQ/L (3.5-5.1)
[2020-06-21] MEDS: HumaLOG INSULIN (NovoLOG) PER UNIT SC SCH ×4 (05:09→23:47)
[2020-06-21 05:43] LABS: ABG BASE EXCESS 2.1 (-2.0-2.0); ABG HCO3 26.4 MEQ/L (22.0-26.0); ABG O2 SATURATION 94.3 % (95.0-99.0); ABG PARTIAL PRESSURE CO2 40.1 mmHg (35.0-45.0); ABG PARTIAL PRESSURE O2 71.9 mmHg (75.0-100.0); ABG STANDARD HCO3 26.3 MEQ/L (22.0-26.0); ABG TOTAL CO2 27.7 MEQ/L (23.0-31.0); ABG pH (ARTERIAL) 7.437 UNITS (7.350-7.450)
[2020-06-21] MEDS: propofoL 1,000 MG in IV 1 EA IV SCH ×3 (06:16→20:45)
--- NOTE | 2020-06-21 06:50 | REP ---
INDICATION: respiratory failure COMPARISON: 06/20/2020 TECHNIQUE: Portable AP view of the chest FINDINGS: Endotracheal tube and nasogastric tube are in stable satisfactory position. The cardiac silhouette is within normal limits. Infrahilar and lower lobe opacities appear increased from prior examination concerning for multifocal consolidation/atelectasis and small pleural effusions. No pneumothorax. Skeletal structures intact. IMPRESSION: Findings suggest increasing bilateral infrahilar and lower lobe opacities suggesting consolidation/atelectasis and small pleural effusions. <Electronically signed by Merrick Solitario > 06/21/20 0667
[2020-06-21] MEDS: CHLORHEXIDINE GLUCONATE 0.12 % 15ML UDC (PERIDEX ORAL RINSE) MT SCH ×2 (08:39→20:45)
[2020-06-21] MEDS: PANTOPRAZOLE 40MG VIAL (C9113 PER 1) IV SCH (08:40)
[2020-06-21] MEDS: LEVEMIR (INSULIN DETEMIR) 1 UNITS/0.01ML SC SCH ×2 (08:40→20:48)
[2020-06-21] MEDS: ENOXAPARIN 40MG/0.4ML SYRINGE (J1650 PER 10MG) SC SCH (08:40)
[2020-06-21] MEDS: LIDOCAINE 5% (LIDODERM) PATCH TD SCH (08:41)
[2020-06-21] MEDS: BACITRACIN OINTMENT 30GM TUBE TOP SCH ×2 (08:41→20:49)
[2020-06-21] MEDS ORDERED: ONDANSETRON 4MG/2ML VIAL IV PRN (13:30)
--- NOTE | 2020-06-21 13:53 | CCN ---
DATE: 06/21/2020 Dictated by JOE Nagel in conjunction with supervising physician, Wm Warner D.O. SUBJECTIVE: Mr. Connell is seen in the ICU. He remains on mechanical ventilation. He does open his eyes and does attempt to follow commands. He is still very weak. Nursing notes that he still does not have gag reflux or a cough. He has remained afebrile. He is on 60 mL of 1.2 calorie Glucerna for nutrition. He has MPO boots. OBJECTIVE: VITAL SIGNS: Temperature is 100.2, pulse 87, blood pressure 148/67, respiratory rate 20. Patient is on the ventilator at [facility] settings with a tidal volume of 480, rate of 15, and a PEEP of 8. He is making urine and nursing reports that his urine output is 200 to 300 mL about every two hours. GENERAL: Patient is alert and opens eyes. HEENT: Head is normocephalic, atraumatic. Pupils are equal and reactive to light. Moist mucous membranes. NECK: Supple. No tracheal deviation. No JVD. No cervical lymphadenopathy. PULMONARY: Patient does have some slight rhonchi at the bases. CARDIAC: Regular rate and rhythm. S1, S2. No murmurs. ABDOMEN: Positive bowel sounds, soft, and nontender with no rebound or guarding. EXTREMITIES: No clubbing, cyanosis, or edema. The left upper extremity does look a little erythema when compared to the right. No obvious edema. NEUROLOGIC: Patient has minimal movement. He is able to barely grasp my hand. No evidence of tremor. LABORATORY DATA: WBC 6.1, hemoglobin 11.3, hematocrit 35.5, platelets 120,000. Sodium 137, potassium 3.9, chloride 102, carbon dioxide 28, BUN 58, creatinine 1.48, glucose 308, calcium 8.5, magnesium 2.2. ABG with pH of 7.437, pCO2 of 40.1, and pO2 of 71.9. IMAGING: Chest x-ray shows bilateral opacities at the bases suggesting atelectasis versus consolidation. ASSESSMENT AND PLAN: 1. Acute respiratory failure secondary to Guillain-Bradford. Patient has continued muscle weakness. No gag or cough. At this point, we will continue mechanical ventilation until he recovers more neurologically. Plan will be to increase his positive end-expiratory pressure (PEEP) to 10. 2. Diabetes. Patients Levemir was increased from 7 units twice a day to 15 units twice a day yesterday; however, his blood sugars still remain quite high. This morning, he was 308. Therefore, we will increase his Levemir to 20 units b.i.d. 3. Nutrition. The patient is getting Glucerna 60 mL/hour at 1.2 calories. We will continue this. 4. Deep vein thrombosis (DVT) prophylaxis. The patient is getting Lovenox. 5. Gastrointestinal (GI) prophylaxis. The patient is getting Protonix. The patient does remain critically ill and there is a risk of requiring tracheostomy due to neurologic weakness. We will continue to monitor. Dr. Warner did contact the patients daughter and spoke to her about the patients condition. Total critical care time excluding all procedures was 58 minutes. IFRAHD
[2020-06-21 16:47] LABS: AMORPHOUS SEDIMENT SMALL (NEGATIVE); APPEARANCE, URINE CLOUDY (CLEAR); BACTERIA, URINE AUTO 1+ (NEGATIVE); BILIRUBIN, URINE AUTO NEGATIVE (NEGATIVE); BLOOD, URINE BLOOD 2+ (NEGATIVE); COLOR, URINE YELLOW (YELLOW); GLUCOSE, URINE (UA) AUTO 2+ mg/dL (NEGATIVE); KETONE, URINE AUTO NEGATIVE (NEGATIVE); LEUKOCYTE ESTERASE, URINE AUTO NEGATIVE (NEGATIVE); MUCUS, URINE SMALL (NEGATIVE); NITRITE, URINE AUTO NEGATIVE (NEGATIVE); PROTEIN, URINE AUTO NEGATIVE (NEGATIVE); RBC, URINE AUTO 92 /HPF (0-3); SQUAMOUS EPITHELIAL CELL UR AU 0 /HPF (0-6); UROBILINOGEN, URINE AUTO 0.2 mg/dL (0.0-2.0); WBC, URINE AUTO 6 /HPF (0-3)
[2020-06-21] MEDS: hydrALAZINE 20MG/ML 1ML VIAL (J0360 PER 20MG) IV PRN ×2 (17:35→23:07)
[2020-06-21] MEDS: **NOTE PATIENT COMMENT** MISC XX SCH (20:49)
[2020-06-21] MEDS: MIRALAX *UNIT DOSE* 17GM PACKET PO PRN (20:49)
[2020-06-22] VITALS (27 sets, daily range): BP systolic 87–179; BP diastolic 50–84; O2SAT 93–95
[2020-06-22] MEDS: ALBUTEROL SULFATE 2.5 MG/0.5 ML INH NEB SOLN NEB SCH ×7 (00:29→23:52)
[2020-06-22] MEDS: PIPERACILLIN/TAZOBACTAM SOD 3.375 GM in D5W MINI-BAG PLUS 50 ML IV SCH ×4 (01:56→20:11)
[2020-06-22] MEDS: propofoL 1,000 MG in IV 1 EA IV SCH (03:02)
[2020-06-22 05:09] LABS: BASO % 0.7 % (0.0-1.0); EOS # 0.2 10^3/uL (0.0-0.5); EOS % 3.9 % (0.0-3.0); HEMATOCRIT 39.1 % (42.0-52.0); HEMOGLOBIN 12.4 g/dl (13.5-17.5); LYMPH # 0.9 10^3/uL (1.5-5.0); MEAN CORPUSCULAR HEMOGLOBIN 27.1 pg (27.0-33.0); MEAN CORPUSCULAR HGB CONC 31.7 g/dl (32.0-36.5); MEAN CORPUSCULAR VOLUME 85.4 fl (80.0-96.0); MONO # 0.9 10^3/uL (0.0-0.8); MONO % 14.7 % (0.0-5.0); NEUTROPHILS # 4.1 10^3/uL (1.5-8.5); PLATELET COUNT, AUTOMATED 156 10^3/uL (150-450); RED BLOOD COUNT 4.58 10^6/uL (4.30-6.10); WHITE BLOOD COUNT 6.1 10^3/uL (4.0-10.0)
[2020-06-22] MEDS: HumaLOG INSULIN (NovoLOG) PER UNIT SC SCH ×3 (05:10→18:18)
[2020-06-22 05:18] LABS: CALCIUM LEVEL 8.6 MG/DL (8.8-10.2); CREATININE FOR GFR 1.45 MG/DL (0.70-1.30); GLOMERULAR FILTRATION RATE 51.1 (>42); MAGNESIUM LEVEL 1.9 MG/DL (1.8-2.4); POTASSIUM SERUM 4.1 MEQ/L (3.5-5.1)
[2020-06-22 06:17] LABS: ABG BASE EXCESS 4.5 (-2.0-2.0); ABG HCO3 28.7 MEQ/L (22.0-26.0); ABG O2 SATURATION 96.8 % (95.0-99.0); ABG PARTIAL PRESSURE CO2 41.2 mmHg (35.0-45.0); ABG PARTIAL PRESSURE O2 82.7 mmHg (75.0-100.0); ABG STANDARD HCO3 28.5 MEQ/L (22.0-26.0); ABG pH (ARTERIAL) 7.461 UNITS (7.350-7.450)
[2020-06-22] MEDS: MIDAZOLAM INJ 2MG/2ML VIAL (J2250 PER 1MG) IV PRN (07:36)
[2020-06-22] MEDS: LIDOCAINE 5% (LIDODERM) PATCH TD SCH (08:13)
[2020-06-22] MEDS: PANTOPRAZOLE 40MG VIAL (C9113 PER 1) IV SCH (08:13)
[2020-06-22] MEDS: ENOXAPARIN 40MG/0.4ML SYRINGE (J1650 PER 10MG) SC SCH (08:13)
[2020-06-22] MEDS: CHLORHEXIDINE GLUCONATE 0.12 % 15ML UDC (PERIDEX ORAL RINSE) MT SCH ×2 (08:13→20:11)
[2020-06-22] MEDS: BACITRACIN OINTMENT 30GM TUBE TOP SCH ×2 (08:14→20:12)
[2020-06-22] MEDS: LEVEMIR (INSULIN DETEMIR) 1 UNITS/0.01ML SC SCH ×2 (08:14→20:11)
[2020-06-22] MEDS ORDERED: dexmedeTOMidine 200 MCG in IV 1 EA IV ONE (09:30)
[2020-06-22] MEDS: dexmedeTOMidine 200 MCG in IV 1 EA IV SCH ×3 (10:48→21:28)
--- NOTE | 2020-06-22 12:59 | REP ---
INDICATION: respiratory failure. COMPARISON: June 21, 2020.. TECHNIQUE: Sitting AP. Portable radiograph, two views. FINDINGS: Endotracheal tube is seen in good position at the level of the transverse aorta. NG tube enters the left upper quadrant. Monitoring electrodes are seen. There is coarse moderate bibasilar platelike atelectasis just above each diaphragm. This appears somewhat more prominent than on yesterday's radiograph. Lung mcduffie are otherwise clear. IMPRESSION: Coarse bibasilar platelike atelectasis increased from yesterday's radiograph. <Electronically signed by Kameron Nichols > 06/22/20 2021
--- NOTE | 2020-06-22 15:21 | CCN ---
DATE: 06/22/2020 SUBJECTIVE: Patient was seen and examined this morning during bedside rounds. Patient remains on mechanical ventilation and sedation with propofol. With the sedation vacation this morning, patient became, was following commands but continued to have periods of agitation and required Versed for sedation and increase of his propofol again. He does not appear to have any gag reflex still with suctioning, and although he is able to move his arms and shake his head side to side, he has not been able to lift his head up still. Patient has been afebrile overnight. He does have periods of hypertension as well. He is on tube feeds which he is tolerating well without any residuals. He does continue to have significant copious secretions with suctioning. PHYSICAL EXAM: Vitals: Temperature 99.7, pulse 91, respirations 22, blood pressure 157/68, O2 93% on 40% FiO2. Ins 1.5 liters, out 2 liters, net negative 487 mL. General: Patient is intubated and sedated. He is agitated at times but is able to follow commands with lower sedation. HEENT: Normocephalic/atraumatic. Pupils are reactive to light bilaterally. Patient does have some irritation from the ET tube beckman which appears improved with the bacitracin. Neck is supple. Trachea is midline. No palpable cervical adenopathy. Cardiac: Regular rate and rhythm, normal S1 and S2. Unable to appreciate any murmur. He does have a history of bigeminy at times on telemetry. No JVD noted. Pulmonary: Coarse ventilated breath sounds bilaterally with a few occasional rhonchi at the bases. No wheezes noted or rales. Abdomen is obese, soft, nontender, nondistended. No masses palpated. Extremities: There is no lower extremity edema bilaterally. LABS: WBC 6.1, hemoglobin 12.4, platelets 156. Chemistry: Sodium 139, potassium 4.1, chloride 103, bicarb 30, BUN 53, creatinine 1.45, glucose 325, calcium 8.6, magnesium 1.9. ABG: pH 7.461, pCO2 41.2, pO2 82.7. IMAGING: Chest x-ray shows ET tube in good position approximately 3-4 cm above the blanco. There is an OG tube in place coursing below the diaphragm. There is evidence plate-like atelectasis in the bilateral lung bases. There are mildly increased interstitial markings. ASSESSMENT AND PLAN: 1. The patient is a 69-year-old male with a past medical history of diabetes, hypertension, and hyperlipidemia who initially presented to the hospital with paresthesia in the arms followed by paresthesias in the legs with associated weakness in his arms and legs. There was concern initially for possible cauda equina syndrome versus spinal stenosis or cord compression. 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 Patient was seen by Neurology and completed treatment with IVIG. Patient was improving in terms of his muscle strength and had been doing well protecting his airway with adequate NIFs. On 06-17, however, patient was noted to have an episode of vomiting and aspiration. The patient had difficulty protecting his airway at that time and was intubated and placed on mechanical ventilation. Patient was also started on broad spectrum antibiotics for aspiration pneumonia. - Respiratory failure in the setting of aspiration pneumonia as well as with neuromuscular weakness from Guillain-Wilson. Patient likely has a component of critical illness myopathy at this time as well given his intubation and sedation. - Patient is on mechanical ventilation currently with PRVC with settings of 480/15/40 and 10. Patient is on PEEP of 10 given evidence of atelectasis still in his lower lobes. - Will continue patient with sedation with propofol. With sedation vacation this morning, he became agitated although was following commands intermittently. Will start Precedex in attempt to wean down propofol to allow patient to be more awake and cooperative perhaps with bedside OT/PT to help with his critical illness neuropathy. - Will continue daily sedation vacation and weaning trials as tolerated. There is a concern given his history of Guillain-Wilson and with continued weakness that he may require a tracheostomy if he has difficulty with weaning from the ventilator. - Will continue with p.r.n. Versed as well for periods of agitation as well as morphine p.r.n. for analgesia. 2. Aspiration pneumonia: Patient is on Zosyn currently and has not had any leukocytosis or fevers. Will continue Zosyn for a seven day course. 3. Hypertension: Will continue labetalol and hydralazine p.r.n. for hypertension. With weaning off the propofol, patient may need additional long acting medications for his hypertension. 4. Diabetes: Patient is on Levemir b.i.d. for diabetes. However, his finger stick glucoses are still elevated. Will increase his Levemir to 25 units b.i.d. and continue with sliding scale coverage. He is on tube feeds with Glucerna at his goal rate. Will add free water flushes as he does have some elevated BUN and mildly elevated creatinine, although proving. 5. DVT prophylaxis: Lovenox. 6. GI prophylaxis: Protonix. 7. Code status: Full code. Total critical care time spent not including any procedures approx 50 mins MTDD
[2020-06-22] MEDS: MORPHINE 2 MG/ML 1ML VIAL (J2270) IV PRN (16:10)
[2020-06-22] MEDS: **NOTE PATIENT COMMENT** MISC XX SCH (20:12)
[2020-06-23] VITALS (19 sets, daily range): BP systolic 90–174; BP diastolic 54–88; O2SAT 95–96
[2020-06-23] MEDS: HumaLOG INSULIN (NovoLOG) PER UNIT SC SCH ×4 (00:11→17:43)
[2020-06-23] MEDS: PIPERACILLIN/TAZOBACTAM SOD 3.375 GM in D5W MINI-BAG PLUS 50 ML IV SCH ×4 (01:57→19:59)
[2020-06-23] MEDS: dexmedeTOMidine 200 MCG in IV 1 EA IV SCH ×2 (02:35→07:41)
[2020-06-23] MEDS: MIDAZOLAM INJ 2MG/2ML VIAL (J2250 PER 1MG) IV PRN (03:47)
[2020-06-23] MEDS: ALBUTEROL SULFATE 2.5 MG/0.5 ML INH NEB SOLN NEB SCH ×6 (04:02→20:00)
[2020-06-23 04:41] LABS: BASO % 0.7 % (0.0-1.0); EOS # 0.5 10^3/uL (0.0-0.5); EOS % 8.1 % (0.0-3.0); HEMATOCRIT 37.6 % (42.0-52.0); HEMOGLOBIN 11.5 g/dl (13.5-17.5); LYMPH # 1.1 10^3/uL (1.5-5.0); LYMPH % 17.4 % (24.0-44.0); MEAN CORPUSCULAR HEMOGLOBIN 26.4 pg (27.0-33.0); MEAN CORPUSCULAR HGB CONC 30.6 g/dl (32.0-36.5); MEAN CORPUSCULAR VOLUME 86.2 fl (80.0-96.0); MONO # 0.8 10^3/uL (0.0-0.8); NEUTROPHILS # 3.6 10^3/uL (1.5-8.5); NEUTROPHILS % 59.8 % (36.0-66.0); PLATELET COUNT, AUTOMATED 154 10^3/uL (150-450); RED BLOOD COUNT 4.36 10^6/uL (4.30-6.10)
[2020-06-23 05:12] LABS: CREATININE FOR GFR 1.45 MG/DL (0.70-1.30); GLOMERULAR FILTRATION RATE 51.1 (>42); MAGNESIUM LEVEL 2.1 MG/DL (1.8-2.4); POTASSIUM SERUM 4.5 MEQ/L (3.5-5.1)
[2020-06-23 05:54] LABS: ABG BASE EXCESS 4.3 (-2.0-2.0); ABG HCO3 28.6 MEQ/L (22.0-26.0); ABG O2 SATURATION 96.6 % (95.0-99.0); ABG PARTIAL PRESSURE CO2 41.5 mmHg (35.0-45.0); ABG PARTIAL PRESSURE O2 85.8 mmHg (75.0-100.0); ABG STANDARD HCO3 28.3 MEQ/L (22.0-26.0); ABG TOTAL CO2 29.9 MEQ/L (23.0-31.0); ABG pH (ARTERIAL) 7.456 UNITS (7.350-7.450)
--- NOTE | 2020-06-23 07:38 | REP ---
INDICATION: respiratory failure. COMPARISON: 06/22/2020. FINDINGS: The technique utilized in obtaining the radiograph has magnified the cardiac silhouette and accentuated the interstitial markings. The under tracheal tube is unchanged. He remains in satisfactory position at the level of the aortic knob. The nasogastric tube does not appear to be significantly changed. The tip is beyond the confines of the radiograph beneath the diaphragmatic surface of the left lung. Bibasilar opacities seen previously have improved. There are no new abnormal opacities. There is no change in the osseous structures. IMPRESSION: Improved lung bases. Otherwise no significant change. <Electronically signed by Demarcus Allen > 06/23/20 0721
[2020-06-23 09:16] LABS: ABG HCO3 27.3 MEQ/L (22.0-26.0); ABG PARTIAL PRESSURE CO2 40.4 mmHg (35.0-45.0); ABG STANDARD HCO3 27.1 MEQ/L (22.0-26.0); ABG TOTAL CO2 28.5 MEQ/L (23.0-31.0); ABG pH (ARTERIAL) 7.447 UNITS (7.350-7.450)
[2020-06-23] MEDS: CHLORHEXIDINE GLUCONATE 0.12 % 15ML UDC (PERIDEX ORAL RINSE) MT SCH ×2 (09:43→20:27)
[2020-06-23] MEDS: LIDOCAINE 5% (LIDODERM) PATCH TD SCH (09:44)
[2020-06-23] MEDS: ENOXAPARIN 40MG/0.4ML SYRINGE (J1650 PER 10MG) SC SCH (09:44)
[2020-06-23] MEDS: PANTOPRAZOLE 40MG VIAL (C9113 PER 1) IV SCH (09:44)
[2020-06-23] MEDS: LEVEMIR (INSULIN DETEMIR) 1 UNITS/0.01ML SC SCH ×2 (09:45→20:02)
[2020-06-23] MEDS: BACITRACIN OINTMENT 30GM TUBE TOP SCH ×2 (09:52→20:02)
[2020-06-23] MEDS: MORPHINE 2 MG/ML 1ML VIAL (J2270) IV PRN ×2 (13:49→22:05)
--- NOTE | 2020-06-23 18:21 | IPNPDOC ---
Subjective Date Seen The patient was seen on 06/23/20. Subjective Chief Complaint/HPI Mr. Connell is a 69 year old male with suicidal ideation on suicidal precautions and Guillain-Box Elder syndrome s/p IVIGx5 days who was vomiting and aspiration and intubated for airway protection. He was intubated on 06/17/2020 and extubated on 06/23/2020. Today I received sign out from critical care team. When I went to see the patient, he was not speaking with him. The sitter told me earlier he was asking for help to stand. Later in the day, nurse contacted me. He was agitated, refused medications, and wanted to go home. Explained that he was too weak to go home and that he needs to work with physical therapy to get stronger first. Patient would like to see physical therapy tomorrow Objective Physical Examination General Exam: Positive: Alert; Negative: Cooperative Eye Exam: Positive: EOMI ENT Exam: Positive: Atraumatic Neck Exam: Positive: Supple; Negative: JVD Chest Exam: Positive: Clear to auscultation Heart Exam: Positive: Rate Normal Abdomen Exam: Positive: Normal bowel sounds Extremity Exam: Negative: Clubbing, Cyanosis Skin Exam: Positive: Nl turgor and temperature Neuro Exam: Negative: Strength at 5/5 X4 ext (LE3/5 b/l, UE 3/5 bl) Psych Exam: Positive: Other (agitated) Assessment /Plan Assessment Mr. Connell is a 69 year old male with suicidal ideation on suicidal precautions and Guillain-Box Elder syndrome s/p IVIGx5 days who was vomiting and aspiration and intubated for airway protection. He was intubated on 06/17/2020 and extubated on 06/23/2020. 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 Due to his SI, will need to reconsult psych when medically cleared Plan/VTE VTE Prophylaxis Ordered?: Yes Plan 1. Acute hypercapnic respiratory failure in the setting of Guillain-Box Elder syndrome -ABG on 06/17/2020 demonstrated pCO2 of 50.6 -Intubated from 06/17/2020 to 06/23/2020 2. 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 Aspiration pneumonia -Related to Guillain-Box Elder syndrome -Will need 7 days of Zosyn. Started on 06/17/2020. Complete 06/24/2020 5. Suicidal Ideation -Suicidal precautions with sitter -Will need psych re-evaluation 6. Hypertension -Unable to take oral medication at this time -Continue PRN IV hydralazine and IV labetalol 7. DVT ppx -Lovenox VS, I&O, 24H, Fishbone Vital Signs/I&O Vital Signs Date Time Temp Pulse Resp B/P (MAP) Pulse Ox O2 Delivery O2 Flow Rate FiO2 06/23/20 16:00 4.0 06/23/20 15:12 97.9 91 20 169/83 (111) 89 Nasal Cannula 06/23/20 10:31 40 I&O- Last 24 Hours up to 6 AM 06/23/20 06:00 Intake Total 2084.3 ml Output Total 1680 ml Balance 404.3 ml Laboratory Data 24H LABS Laboratory Tests 2 06/22/20 18:14: Bedside Glucose (Misc Panel) 305H 06/23/20 00:08: Bedside Glucose (Misc Panel) 359H 06/23/20 04:24: Immature Granulocyte % (Auto) 1.0, Neutrophils (%) (Auto) 59.8, Lymphocytes (%) (Auto) 17.4L, Monocytes (%) (Auto) 13.0H, Eosinophils (%) (Auto) 8.1H, Basophils (%) (Auto) 0.7, Neutrophils # (Auto) 3.6, Lymphocytes # (Auto) 1.1L, Monocytes # (Auto) 0.8, Eosinophils # (Auto) 0.5, Basophils # (Auto) 0.0, Nucleated Red Blood Cells % (auto) 0.0, Anion Gap 5L, Glomerular Filtration Rate 51.1, Calcium Level 9.0, Magnesium Level 2.1 06/23/20 05:48: Blood Gas Bicarbonate Standard 28.3H, Arterial Blood pH 7.456H, Arterial Blood Partial Pressure CO2 41.5, Arterial Blood Partial Pressure O2 85.8, Arterial Blood Total CO2 29.9, Arterial Blood HCO3 28.6H, Arterial Blood Base Excess 4.3H, Arterial Blood Oxygen Saturation 96.6 06/23/20 09:09: Blood Gas Bicarbonate Standard 27.1H, Arterial Blood pH 7.447, Arterial Blood Partial Pressure CO2 40.4, Arterial Blood Partial Pressure O2 81.0, Arterial Blood Total CO2 28.5, Arterial Blood HCO3 27.3H, Arterial Blood Base Excess 3.0H, Arterial Blood Oxygen Saturation 96.0 06/23/20 11:58: Bedside Glucose (Misc Panel) 173H CBC/BMP Laboratory Tests 06/23/20 04:24 Microbiology Microbiology 06/16/20 Gram Stain - Final, Complete 06/16/20 CSF Culture - Final, Complete NORI UP DO Jun 23, 2020 18:21
[2020-06-23] MEDS ORDERED: RAMELTEON 8 MG TAB (ROZEREM) PO PRN (19:45)
[2020-06-23] MEDS ORDERED: diphenhydrAMINE 50MG/ML VIAL (J1200) IV PRN (20:00)
[2020-06-23] MEDS: **NOTE PATIENT COMMENT** MISC XX SCH (20:03)
[2020-06-23] MEDS: OLANZapine INTRAMUSCULAR 10MG VIAL IM PRN (22:35)
[2020-06-24] VITALS (12 sets, daily range): BP systolic 90–159; BP diastolic 54–105
[2020-06-24] MEDS: MORPHINE 2 MG/ML 1ML VIAL (J2270) IV PRN (00:24)
[2020-06-24] MEDS: HumaLOG INSULIN (NovoLOG) PER UNIT SC SCH ×5 (00:25→23:51)
[2020-06-24] MEDS ORDERED: HYDROMORPHONE HCL 0.5 MG/ 0.5 ML SYRINGE (J1170 PER 1) IV PRN ×3 (01:00→18:00)
[2020-06-24] MEDS: PIPERACILLIN/TAZOBACTAM SOD 3.375 GM in D5W MINI-BAG PLUS 50 ML IV SCH ×4 (01:17→20:34)
[2020-06-24] MEDS: HYDROMORPHONE HCL 0.5 MG/ 0.5 ML SYRINGE (J1170 PER 1) IV PRN ×4 (01:17→14:50)
[2020-06-24 05:02] LABS: BLOOD UREA NITROGEN 54 MG/DL (7-18); CALCIUM LEVEL 9.4 MG/DL (8.8-10.2); CARBON DIOXIDE LEVEL 32 MEQ/L (21-32); CHLORIDE LEVEL 111 MEQ/L (98-107); CREATININE FOR GFR 1.21 MG/DL (0.70-1.30); GLOMERULAR FILTRATION RATE > 60.0 (>42); GLUCOSE, FASTING 128 MG/DL (70-100); POTASSIUM SERUM 3.9 MEQ/L (3.5-5.1); SODIUM LEVEL 148 MEQ/L (136-145)
--- NOTE | 2020-06-24 07:31 | REP ---
INDICATION: respiratory failure. COMPARISON: 06/23/2020 FINDINGS: The technique utilized in obtaining the radiograph has magnified the cardiac silhouette and accentuated the interstitial markings. The endotracheal tube has been removed. The nasogastric tube is been removed. Curvilinear and discoid opacities persist in the lung bases status quo. The pleural angles are again seen to be sharp. No new abnormal opacities have developed. There is no change in the osseous structures. IMPRESSION: Removal of tubes as described above. Stable lung mcduffie. <Electronically signed by Demarcus Allen > 06/24/20 0709
[2020-06-24] MEDS: ALBUTEROL SULFATE 2.5 MG/0.5 ML INH NEB SOLN NEB SCH ×6 (07:43→23:12)
[2020-06-24] MEDS: BISACODYL 10 MG SUPP PR SCH ×2 (10:01→21:00)
[2020-06-24] MEDS: ENOXAPARIN 40MG/0.4ML SYRINGE (J1650 PER 10MG) SC SCH (10:01)
[2020-06-24] MEDS: LEVEMIR (INSULIN DETEMIR) 1 UNITS/0.01ML SC SCH ×2 (10:01→21:00)
[2020-06-24] MEDS: BACITRACIN OINTMENT 30GM TUBE TOP SCH ×2 (10:02→21:56)
[2020-06-24] MEDS: LIDOCAINE 5% (LIDODERM) PATCH TD SCH (10:02)
[2020-06-24] MEDS: PANTOPRAZOLE 40MG VIAL (C9113 PER 1) IV SCH (10:02)
[2020-06-24] MEDS: CHLORHEXIDINE GLUCONATE 0.12 % 15ML UDC (PERIDEX ORAL RINSE) MT SCH ×2 (10:03→20:54)
[2020-06-24] MEDS ORDERED: ISOVUE-370 76% 100ML VIAL As Ordered ONE (14:23)
[2020-06-24] MEDS: NS 1,000 ML IV SCH (14:42)
--- NOTE | 2020-06-24 14:48 | REP ---
INDICATION: Abdominal pain, cannot take orals, SBO? ischemic?. COMPARISON: None TECHNIQUE: 100 cc Isovue 370 intravenously. No oral bowel preparatory contrast was administered prior to the exam. FINDINGS: There are bibasilar opacities in the lung mcduffie with air bronchograms. There are no pleural or pericardial effusions. The liver, spleen, pancreas, and adrenal glands are within normal limits. There are multiple bilateral low-density structures seen in each kidney. They all, however, have higher than water density Hounsfield unit readings. There is mild bilateral perinephric stranding. The abdominal aorta and para-aortic regions are within normal limits. Calcific atherosclerotic changes noted. There is no free fluid or free air. No gross abnormality is seen involving the bowel loops. A Rodriguez balloon is seen in the urinary bladder decompressing it. There is cholelithiasis. The osseous structures are within normal limits for the patient's age. IMPRESSION: 1. Cholelithiasis 2. Renal findings as described above. Likely hyperdense cysts, however, neoplastic change involving any one of the hyperdense lesions cannot be ruled out by this exam. Pre and post gadolinium enhanced renal MRI is recommended. 3. Lung base findings as described above. Pneumonia versus atelectasis versus a combination of both. 4. Other findings as described above. <Electronically signed by Demarcus Allen > 06/24/20 0561
--- NOTE | 2020-06-24 16:05 | CCN ---
DATE: 06/23/2020 SUBJECTIVE: Patient was seen and examined this morning during bedside rounds. Yesterday afternoon, the patient was weaned off of the propofol and only on Precedex for sedation. With the Precedex, he was more awake and alert and appeared to be moving his arms spontaneously, although was not moving as much to commands. Patient did well overnight without requiring any propofol for sedation. He was maintained on Precedex and this morning appears awake, alert, and following commands appropriately. He was placed on a pressure support weaning trial, which is tolerated well. He has minimal secretions from his endotracheal tube. He does have some oral secretions at times, but does appear to have a cough reflex now. The patient was therefore extubated to CPAP. OBJECTIVE: VITAL SIGNS: Temperature 97.8, pulse 66, respirations 18, blood pressure 108/57, O2 of 95% on 40% FiO2. INTAKE/OUTPUT: Ins 1.9 liters, out 1.6 liters. GENERAL: The patient is intubated and as stated, he is awake and alert and able to follow commands appropriately. HEENT: Normocephalic, atraumatic. Pupils are reactive to light bilaterally. Patient has some local skin irritation from the ET tube around his top lip, which is improved. NECK: Supple. Trachea is midline. There is no palpable cervical lymphadenopathy. CARDIAC: Regular rate and rhythm. Normal S1, S2. Unable to appreciate any murmurs. PULMONARY: There are some coarse ventilator breath sounds bilaterally, but no wheezes, rales, or rhonchi. ABDOMEN: Obese, soft, nontender, and nondistended. No masses palpated. EXTREMITIES: There is no lower extremity edema bilaterally. LABORATORY DATA: WBC 6.0, hemoglobin 11.5, platelets 154,000. Chemistry: Sodium 143, potassium 4.5, chloride 106, bicarb 32, BUN 65, creatinine 1.45, glucose 308. ABG with pH of 7.456, pCO2 of 41.5, pO2 of 85.8. ABG while on weaning trial was pH 7.447, pCO2 of 40.4, pO2 of 81. IMAGING: Chest x-ray this morning shows ET tube in satisfactory position. There is an OG tube in place coursing below the diaphragm. There is plate-like atelectasis in the lung bases bilaterally. ASSESSMENT AND PLAN: The patient is a 69-year-old male with a past medical history of diabetes, hypertension, and hyperlipidemia who presented to the hospital with paresthesias in the arms followed paresthesias in the legs with associated weakness. 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 He was seen by neurology and completed treatment with IVIG and was having improvement in terms of his muscle strength and had been doing well respiratory morales. On the evening of 06/17/2020; however, the patient had an episode of vomiting and aspiration. He had difficulty protecting his airway afterwards and was intubated and placed on mechanical ventilation. He was started on broad-spectrum antibiotics for aspiration pneumonia. Respiratory failure in the setting of aspiration pneumonia, as well as a component of neuromuscular weakness from Guillain-[place] syndrome. The patient likely also has a component of critical illness myopathy given his intubation and sedation. He is day #6 for mechanical ventilation. - Patient was on mechanical ventilation with PRVC settings of 480/15/40 and 10. He was placed on a weaning trial with a pressure support of 6 cm of water, which he tolerated well. His ABG while on the weaning trial was acceptable. Patient appears to be more awake and alert off of the propofol with only Precedex for sedation. He is following commands and appears to be moving his upper extremities spontaneously. He does not appear to be moving his lower extremities at this time, but he does have a cough reflex and is moving his head slightly off the pillow. - Patient was successfully extubated to CPAP at 6 cm with 40% FiO2. Will wean him off of the CPAP today to nasal cannula oxygen supplementation as tolerated. He does appear to have a good cough currently. Aspiration pneumonia The patient is on Zosyn for his aspiration pneumonia. He will complete a 7 day course of antibiotics. Hypertension. The patient is on labetalol and hydralazine p.r.n. for hypertension. Once he is able to tolerate p.o., would likely transition him to oral antihypertensive medications. Diabetes. The patient is on Levemir b.i.d. for diabetes. He does continue to have some elevated fingerstick glucose while on the Glucerna. He is n.p.o. at this time post extubation as he will need speech and swallow evaluation. Will continue with Levemir, but will decrease his dose. - Will continue to monitor his renal function and urine output. His BUN is elevated slightly, although his creatinine mildly elevated has been stable. History of depression and suicidal ideation. Patient was on a one-to-one for suicidal ideation prior to his intubation. He had been evaluated by psychiatry as well, and there was recommendation of [facility] after he is medically cleared. Will get psychiatry consult again and appreciate their recommendations. Physical therapy (PT)/occupational therapy (OT). Deep vein thrombosis (DVT) prophylaxis with Lovenox. Gastrointestinal (GI) prophylaxis with Protonix. Code status: FULL CODE. Total critical care time spent not including procedures approximately 50 minutes. MTDD
[2020-06-24] MEDS ORDERED: SODIUM CHLORIDE 0.9% 1000ML IV ONE (16:30)
--- NOTE | 2020-06-24 20:24 | IPNPDOC ---
Subjective Date Seen The patient was seen on 06/24/20. Subjective Chief Complaint/HPI Mr. Connell is a 69 year old male with suicidal ideation on suicidal precautions and Guillain-[place] syndrome s/p IVIGx5 days who was vomiting and aspiration and intubated for airway protection. He was intubated on 06/17/2020 and extubated on 06/23/2020. Overnight, he had intractable pain in his abdomen and extremities despite morphine. Night team started on Dilaudid protocol as patient is unable to tolerate orals. Otherwise, he has not had a bowel movement in several days. Gave him Dulcolax suppository. Otherwise, this morning, he told me the was going to see a mentally impaired teacher today and confess and atone for his sins. Objective Physical Examination General Exam: Positive: Alert; Negative: Cooperative Eye Exam: Positive: EOMI ENT Exam: Positive: Atraumatic Neck Exam: Positive: Supple; Negative: JVD Chest Exam: Positive: Clear to auscultation Heart Exam: Positive: Rate Normal Abdomen Exam: Positive: Normal bowel sounds Extremity Exam: Negative: Clubbing, Cyanosis Skin Exam: Positive: Nl turgor and temperature Neuro Exam: Negative: Strength at 5/5 X4 ext (LE3/5 b/l, UE 3/5 bl) Psych Exam: Positive: Other (agitated) Assessment /Plan Assessment Mr. Connell is a 69 year old male with suicidal ideation on suicidal precautions and Guillain-[place] syndrome s/p IVIGx5 days who was vomiting and aspiration and intubated for airway protection. He was intubated on 06/17/2020 and extubated on 06/23/2020. 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 Due to his SI, will need to reconsult psych when medically cleared. Will have speech therapy evaluate patient tomorrow for safe diet. Then transition his medications to oral medication Plan/VTE VTE Prophylaxis Ordered?: Yes Plan 1. Acute hypercapnic respiratory failure in the setting of Guillain-[place] syndrome -ABG on 06/17/2020 demonstrated pCO2 of 50.6 -Intubated from 06/17/2020 to 06/23/2020 2. Guillain-[place] syndrome -Received 5x of IVIG 3. Critical care myopathy -On the ventilator for about 6 days -PT/OT/ST 4. Aspiration pneumonia -Related to Guillain-[place] syndrome -Will need 7 days of Zosyn. Started on 06/17/2020. Complete 06/24/2020 5. Suicidal Ideation -Suicidal precautions with sitter -Will need psych re-evaluation 6. Hypertension -Unable to take oral medication at this time -Continue PRN IV hydralazine and IV labetalol 7. DVT ppx -Lovenox Disposition: Have speech/swallow evaluate patient tomorrow for diet. Transition patient to orals. Then consult psych for evaluation of SI VS, I&O, 24H, Fishbone Vital Signs/I&O Vital Signs Date Time Temp Pulse Resp B/P (MAP) Pulse Ox O2 Delivery O2 Flow Rate FiO2 06/24/20 18:23 106/56 (73) 06/24/20 16:00 0.5 06/24/20 15:53 97.8 89 20 91 Nasal Cannula 06/23/20 10:31 40 I&O- Last 24 Hours up to 6 AM 06/24/20 06:00 Intake Total 160 ml Output Total 2205 ml Balance -2045 ml Laboratory Data 24H LABS Laboratory Tests 2 06/23/20 23:57: Bedside Glucose (Misc Panel) 145H 06/24/20 04:26: Anion Gap 5L, Glomerular Filtration Rate > 60.0, Calcium Level 9.4 06/24/20 11:26: Bedside Glucose (Misc Panel) 124H 06/24/20 17:29: Bedside Glucose (Misc Panel) 105 CBC/BMP Laboratory Tests 06/24/20 04:26 Microbiology Microbiology 06/16/20 Gram Stain - Final, Complete 06/16/20 CSF Culture - Final, Complete NORI UP DO Jun 24, 2020 20:24
[2020-06-24] MEDS: **NOTE PATIENT COMMENT** MISC XX SCH (21:56)
[2020-06-25] VITALS (7 sets, daily range): BP systolic 95–158; BP diastolic 55–81
[2020-06-25] MEDS: NS 1,000 ML IV SCH
[2020-06-25] MEDS: ALBUTEROL SULFATE 2.5 MG/0.5 ML INH NEB SOLN NEB SCH ×5 (03:42→20:52)
[2020-06-25] MEDS: HumaLOG INSULIN (NovoLOG) PER UNIT SC SCH ×3 (05:21→17:50)
[2020-06-25 06:28] LABS: HEMATOCRIT 44.1 % (42.0-52.0); HEMOGLOBIN 13.4 g/dl (13.5-17.5); MEAN CORPUSCULAR HEMOGLOBIN 26.5 pg (27.0-33.0); MEAN CORPUSCULAR HGB CONC 30.4 g/dl (32.0-36.5); MEAN CORPUSCULAR VOLUME 87.3 fl (80.0-96.0); PLATELET COUNT, AUTOMATED 215 10^3/uL (150-450); RED BLOOD COUNT 5.05 10^6/uL (4.30-6.10); WHITE BLOOD COUNT 12.5 10^3/uL (4.0-10.0)
[2020-06-25 06:54] LABS: CALCIUM LEVEL 9.4 MG/DL (8.8-10.2); CREATININE FOR GFR 1.31 MG/DL (0.70-1.30); GLOMERULAR FILTRATION RATE 57.4 (>42); POTASSIUM SERUM 3.6 MEQ/L (3.5-5.1)
[2020-06-25 07:45] LABS: ATYPICAL LYMPH 1 % (0-5); EOSINOPHILS 4 % (0-3); LYMPHOCYTES 18 % (16-44); MONOCYTES 2 % (0-5); NEUTROPHILS 70 % (28-66)
[2020-06-25 07:46] LABS: ANISOCYTOSIS 1+; PLATELET ESTIMATE NORMAL (NORMAL)
[2020-06-25] MEDS: BACITRACIN OINTMENT 30GM TUBE TOP SCH ×2 (08:21→20:27)
[2020-06-25] MEDS: CHLORHEXIDINE GLUCONATE 0.12 % 15ML UDC (PERIDEX ORAL RINSE) MT SCH ×2 (08:21→20:28)
[2020-06-25] MEDS: PANTOPRAZOLE 40MG VIAL (C9113 PER 1) IV SCH (08:22)
[2020-06-25] MEDS: D5W 1,000 ML IV SCH ×2 (08:22→20:25)
[2020-06-25] MEDS: LEVEMIR (INSULIN DETEMIR) 1 UNITS/0.01ML SC SCH ×2 (08:22→20:26)
[2020-06-25] MEDS: ENOXAPARIN 40MG/0.4ML SYRINGE (J1650 PER 10MG) SC SCH (08:22)
[2020-06-25] MEDS: BISACODYL 10 MG SUPP PR SCH (08:23)
[2020-06-25] MEDS: LIDOCAINE 5% (LIDODERM) PATCH TD SCH (08:23)
[2020-06-25] MEDS ORDERED: DOCUSATE SODIUM 100MG CAPSULE PO PRN (10:15)
--- NOTE | 2020-06-25 10:52 | CCN ---
DATE: 06/24/2020 SUBJECTIVE: The patient was seen and examined this morning during bedside rounds. Yesterday patient was extubated successfully to CPAP. Patient was on CPAP for about two hours post extubation and then was able to be weaned off to nasal cannula oxygen. Patient's oxygen requirements have improved, and patient's strength has also improved. He did have some episodes of confusion and delirium yesterday evening and overnight, although this morning does appear to be more cooperative as well as oriented. He does have complaints of neuropathy in his lower extremities and pain and did require p.r.n. doses of opioid pain medications overnight. This morning, patient denies any shortness of breath or dyspnea. He denies any significant coughing and no chest pain. He is able to move his upper extremities more this morning. Yesterday afternoon, patient was unable to move his lower extremities, although today he is able to wiggle his toes and move his feet much more than he was previously, almost being able to bend his knees as well. PHYSICAL EXAMINATION: Vitals: Temperature 96.4, pulse 83, respirations 15, blood pressure 131/66, O2 sat 95% on 1 liter nasal cannula. Ins 829, outs 2.2, net negative 1.4 liters. General: Patient is awake and alert. He appears to be oriented x3. Does not appear to be in any respiratory distress and is not using any accessory muscles for respiration. He does have a strong cough reflex currently. HEENT: Normocephalic/atraumatic. Slightly dry mucous membranes. Neck is supple. Trachea is midline. There is no palpable adenopathy. No JVD. Cardiac: Regular rate and rhythm with a few PVCs. Normal S1 and S2 and unable to appreciate any murmurs. Pulmonary: Clear to auscultation bilaterally with mild crackles at the bases but no significant rhonchi or wheezing. Abdomen: Obese, soft, nontender, nondistended. No palpable hepatomegaly. Extremities: There is no significant lower extremity edema bilaterally. LABORATORY DATA: WBC 6.0, hemoglobin 11.5, platelets 154. Chemistry: Sodium 148, potassium 3.9, chloride 111, bicarb 32, BUN 54, creatinine 1.21, glucose 128. Chest x-ray this morning shows ET tube and OG tube have been removed. There is continued discoid and linear atelectasis in the bases bilaterally. ASSESSMENT/PLAN: Mr. Connell is a 69-year-old male with a history of diabetes, hypertension, and hyperlipidemia who presented initially with symptoms of paresthesia and weakness. Patient was diagnosed with Guillain-[place] syndrome after a lumbar puncture likely secondary to his recent influenza vaccine. Patient was treated with IVIG which he completed the course of and was improving in terms of his strength. However, he had episode of vomiting and aspiration and required intubation and mechanical ventilation. Patient has since been extubated yesterday initially to CPAP, but he was quickly weaned off to nasal cannula oxygen and has been doing well overnight. - Patient is on nasal cannula oxygen supplementation but would continue to wean off as tolerated. He was able to wean down later in the morning to just 0.5 liters a minute of nasal cannula oxygen. - He does have evidence of atelectasis on imaging. Would start him on incentive spirometer. - Would continue with PT/OT and out of bed to chair. His strength does appear to be improving and suspect he likely has a component of critical illness myopathy given his intubation and sedation for almost a week. - Patient has been kept n.p.o. for now. Will order speech and swallow evaluation. - Patient also has a history of depression and had been suicidal leading up to this. On conversation today, patient does continue to report significant symptoms of depression, and he had been seen by Psychiatry in the past. He is on a one-to-one for suicidal ideation and would get Psychiatry to reconsult and evaluate. - Patient was on Zosyn for his aspiration pneumonia. Will complete a seven day course and discontinue. - Would continue the rest of his medications for his diabetes and hypertension as per the primary team. As he is n.p.o., will decrease his Levemir slightly to 15 mg b.i.d. and continue monitoring finger stick glucose checks. DVT prophylaxis: Lovenox. GI Prophylaxis: Protonix. Code status: Full code. Total critical care time spent not including procedures approximately 45 minutes. Please do not hesitate to call with any further questions or concerns. MTDD
--- NOTE | 2020-06-25 11:00 | IPNPDOC ---
Subjective Date Seen The patient was seen on 06/25/20. Subjective Chief Complaint/HPI Mr. Connell is a 69 year old male with suicidal ideation on suicidal precautions and Guillain-Adel syndrome s/p IVIGx5 days who was vomiting and aspiration and intubated for airway protection. He was intubated on 06/17/2020 and extubated on 06/23/2020. He did not sleep well overnight and was confused. Otherwise, denies abdominal pain and pain in his extremities. Has not used Dilaudid since 2PM yesterday. Will discontinue Dilaudid. Otherwise, speech swallow has evaluated patient and recommended pureed diet with honey thickened liquids. Objective Physical Examination General Exam: Positive: Alert Eye Exam: Positive: EOMI ENT Exam: Positive: Atraumatic Neck Exam: Positive: Supple; Negative: JVD Chest Exam: Positive: Clear to auscultation Heart Exam: Positive: Rate Normal Abdomen Exam: Positive: Normal bowel sounds Extremity Exam: Negative: Clubbing, Cyanosis Skin Exam: Positive: Nl turgor and temperature Neuro Exam: Negative: Strength at 5/5 X4 ext (LE3/5 b/l, UE 3/5 bl) Psych Exam: Positive: Other (agitated); Negative: Oriented x 3 (Confused) Assessment /Plan Assessment Mr. Connell is a 69 year old male with suicidal ideation on suicidal precautions and Guillain-Adel syndrome s/p IVIGx5 days who was vomiting and aspiration and intubated for airway protection. He was intubated on 06/17/2020 and extubated on 06/23/2020. 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 Due to his SI, will need to reconsult psych when medically cleared. Speech recommended puree diet with honey thickened liquids. Will transition to orals medication Plan/VTE VTE Prophylaxis Ordered?: Yes Plan 1. Acute hypercapnic respiratory failure in the setting of Guillain-Adel syndrome -ABG on 06/17/2020 demonstrated pCO2 of 50.6 -Intubated from 06/17/2020 to 06/23/2020 2. Guillain-Adel syndrome -Received 5x of IVIG 3. Critical care myopathy -On the ventilator for about 6 days -PT/OT/ST 4. Aspiration pneumonia -Related to Guillain-Adel syndrome -Will need 7 days of Zosyn. Started on 06/17/2020. Complete 06/24/2020 5. Suicidal Ideation -Suicidal precautions with sitter -Will need psych re-evaluation 6. Hypertension -Unable to take oral medication at this time -Has not needed IV antihypertensives since 06/21/2020 -Continue to monitor BP 7. Critical care myopathy -Will need PT/OT/ST -ST recommends Pureed diet with honey thickened liquids 8. DVT ppx -Lovenox Disposition: Did not sleep well last night and a little delirious this morning. Will check an EKG before starting on Seroquel tonight to help with sleep. Will see how he does with oral food and medication. VS, I&O, 24H, Fishbone Vital Signs/I&O Vital Signs Date Time Temp Pulse Resp B/P (MAP) Pulse Ox O2 Delivery O2 Flow Rate FiO2 06/25/20 07:03 98.2 101 20 128/78 (95) 90 Nasal Cannula 0.5 06/23/20 10:31 40 I&O- Last 24 Hours up to 6 AM 06/25/20 06:00 Intake Total 1000 ml Output Total 1325 ml Balance -325 ml Laboratory Data 24H LABS Laboratory Tests 2 06/24/20 11:26: Bedside Glucose (Misc Panel) 124H 06/24/20 17:29: Bedside Glucose (Misc Panel) 105 06/24/20 23:49: Bedside Glucose (Misc Panel) 124H 06/25/20 05:11: Bedside Glucose (Misc Panel) 138H 06/25/20 05:49: Neutrophils (%) (Auto) , Nucleated Red Blood Cells % (auto) 0.0, Neutrophils 70H, Band Neutrophils 5, Lymphocytes (Manual) 18, Monocytes (Manual) 2, Eosinophils (Manual) 4H, Atypical Lymphocytes 1, Anisocytosis 1+, Platelet Estimate NORMAL, Anion Gap 8, Glomerular Filtration Rate 57.4, Calcium Level 9.4 CBC/BMP Laboratory Tests 06/25/20 05:49 Microbiology Microbiology 06/16/20 Gram Stain - Final, Complete 06/16/20 CSF Culture - Final, Complete NORI UP DO Jun 25, 2020 11:00
[2020-06-25] MEDS: ACETAMINOPHEN TAB 650MG DOSE (2X325MG) PO PRN (11:58)
[2020-06-25 13:07] LABS: CALCIUM LEVEL 9.4 MG/DL (8.8-10.2); CREATININE FOR GFR 1.48 MG/DL (0.70-1.30); GLOMERULAR FILTRATION RATE 49.9 (>42); POTASSIUM SERUM 3.7 MEQ/L (3.5-5.1)
[2020-06-25 18:23] LABS: CALCIUM LEVEL 8.4 MG/DL (8.8-10.2); CREATININE FOR GFR 2.23 MG/DL (0.70-1.30); GLOMERULAR FILTRATION RATE 31.1 (>42); POTASSIUM SERUM 3.9 MEQ/L (3.5-5.1)
[2020-06-25] MEDS: QUEtiapine FUMARATE 25 MG TAB PO SCH ×2 (20:26→21:00)
[2020-06-25] MEDS: **NOTE PATIENT COMMENT** MISC XX SCH (20:28)
[2020-06-25] MEDS ORDERED: HumaLOG INSULIN (NovoLOG) PER UNIT SC SCH (21:00)
--- NOTE | 2020-06-25 23:47 | ECGEPIP ---
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
[2020-06-26] VITALS: BP 110/58
[2020-06-26 04:00] VITALS: BP 101/54
[2020-06-26] MEDS: ALBUTEROL SULFATE 2.5 MG/0.5 ML INH NEB SOLN NEB SCH ×7 (04:00→23:27)
[2020-06-26 04:58] LABS: ABG BASE EXCESS -0.3 (-2.0-2.0); ABG HCO3 23.6 MEQ/L (22.0-26.0); ABG O2 SATURATION 92.3 % (95.0-99.0); ABG PARTIAL PRESSURE CO2 36.3 mmHg (35.0-45.0); ABG PARTIAL PRESSURE O2 65.1 mmHg (75.0-100.0); ABG STANDARD HCO3 24.1 MEQ/L (22.0-26.0); ABG TOTAL CO2 24.7 MEQ/L (23.0-31.0); ABG pH (ARTERIAL) 7.431 UNITS (7.350-7.450)
--- NOTE | 2020-06-26 05:22 | REPVR ---
PROCEDURE INFORMATION: Exam: XR Chest, 1 View Exam date and time: 06/26/2020 5:16 AM Age: 69 years old Clinical indication: Shortness of breath; Additional info: SOB TECHNIQUE: Imaging protocol: XR of the chest Views: 1 view. COMPARISON: CR PORTABLE CHEST X-RAY 06/24/2020 6:46 AM FINDINGS: Lungs: There is bilateral basilar discoid atelectases, unchanged since the prior exam. Pleural space: Unremarkable. No pleural effusion. No pneumothorax. Heart/Mediastinum: Unremarkable. No cardiomegaly. Bones/joints: Unremarkable. IMPRESSION: Bilateral basilar discoid atelectases. Underlying infiltrates cannot be excluded. Electronically signed by: Alen Pennington On 06/26/2020 05:22:25 AM
[2020-06-26 05:53] LABS: BASO # 0.1 10^3/uL (0.0-0.2); BASO % 0.5 % (0.0-1.0); EOS # 0.1 10^3/uL (0.0-0.5); EOS % 0.7 % (0.0-3.0); HEMATOCRIT 41.3 % (42.0-52.0); HEMOGLOBIN 12.6 g/dl (13.5-17.5); LYMPH # 2.2 10^3/uL (1.5-5.0); LYMPH % 13.1 % (24.0-44.0); MEAN CORPUSCULAR HEMOGLOBIN 26.6 pg (27.0-33.0); MEAN CORPUSCULAR HGB CONC 30.5 g/dl (32.0-36.5); MEAN CORPUSCULAR VOLUME 87.3 fl (80.0-96.0); MONO # 0.9 10^3/uL (0.0-0.8); MONO % 5.2 % (0.0-5.0); NEUTROPHILS # 13.5 10^3/uL (1.5-8.5); NEUTROPHILS % 79.8 % (36.0-66.0); PLATELET COUNT, AUTOMATED 225 10^3/uL (150-450); RED BLOOD COUNT 4.73 10^6/uL (4.30-6.10)
[2020-06-26 06:23] LABS: BLOOD UREA NITROGEN 90 MG/DL (7-18); CALCIUM LEVEL 8.5 MG/DL (8.8-10.2); CARBON DIOXIDE LEVEL 26 MEQ/L (21-32); CHLORIDE LEVEL 113 MEQ/L (98-107); CK-MB VALUE MASS < 1.0 NG/ML (<3.6); CPK CREATINE PHOSPHOKINASE 205 U/L (39-308); CREATININE FOR GFR 3.46 MG/DL (0.70-1.30); GLOMERULAR FILTRATION RATE 18.7 (>42); GLUCOSE, FASTING 282 MG/DL (70-100); MB/CK RELATIVE INDEX 0.49 (< OR =4); NT-PRO BNP 351 PG/ML (<125); POTASSIUM SERUM 3.8 MEQ/L (3.5-5.1); SODIUM LEVEL 146 MEQ/L (136-145); TROPONIN I 0.02 NG/ML (< 0.10)
[2020-06-26 07:20] VITALS: BP 105/53
[2020-06-26] MEDS: LIDOCAINE 5% (LIDODERM) PATCH TD SCH (08:27)
[2020-06-26] MEDS: ENOXAPARIN 40MG/0.4ML SYRINGE (J1650 PER 10MG) SC SCH (08:28)
[2020-06-26] MEDS: LEVEMIR (INSULIN DETEMIR) 1 UNITS/0.01ML SC SCH ×2 (08:28→20:16)
[2020-06-26] MEDS: CHLORHEXIDINE GLUCONATE 0.12 % 15ML UDC (PERIDEX ORAL RINSE) MT SCH ×2 (08:29→20:16)
[2020-06-26] MEDS: HumaLOG INSULIN (NovoLOG) PER UNIT SC SCH ×3 (08:29→17:31)
[2020-06-26] MEDS ORDERED: PANTOPRAZOLE 40MG TAB (PROTONIX) PO SCH (09:00)
[2020-06-26] MEDS: BACITRACIN OINTMENT 30GM TUBE TOP SCH ×2 (09:10→20:15)
--- NOTE | 2020-06-26 09:19 | REP ---
INDICATION: oxygen req't COMPARISON: None TECHNIQUE: Axial noncontrast images from the thoracic inlet to the upper abdomen with coronal and sagittal reformations. This CT examination was performed using the following dose reduction techniques: Automated exposure control, adjustment of mA and/or kv according to the patient's size, and use of iterative reconstruction technique. FINDINGS: Bilateral lower lobe consolidations with air bronchograms (right greater than left) along with multifocal infrahilar atelectasis extending into the right middle lobe and lingula. Tracheobronchial tree is relatively patent. No effusion. No pneumothorax. No significant adenopathy. Mediastinum demonstrates atherosclerotic changes to the thoracic aorta and coronary arteries without aortic aneurysm. Mild cardiomegaly is suggested without pericardial effusion. Surrounding musculoskeletal structures demonstrate age-related degenerative changes. IMPRESSION: Moderate lower lobe consolidations with patchy multifocal bibasilar atelectasis. <Electronically signed by Merrick Solitario > 06/26/20 0916
[2020-06-26 09:39] LABS: ALBUMIN 1.9 GM/DL (3.2-5.2); BILIRUBIN,DIRECT 0.2 MG/DL (0.0-0.2); BILIRUBIN,TOTAL 0.5 MG/DL (0.2-1.0); C REACTIVE PROTEIN QUANTITATIV 11.7 MG/DL (0.00-0.30); TOTAL PROTEIN 7.8 GM/DL (6.4-8.2)
[2020-06-26 09:44] LABS: ABG BASE EXCESS 0.4 (-2.0-2.0); ABG HCO3 25.1 MEQ/L (22.0-26.0); ABG O2 SATURATION 90.9 % (95.0-99.0); ABG PARTIAL PRESSURE CO2 40.7 mmHg (35.0-45.0); ABG PARTIAL PRESSURE O2 60.8 mmHg (75.0-100.0); ABG STANDARD HCO3 24.7 MEQ/L (22.0-26.0); ABG TOTAL CO2 26.4 MEQ/L (23.0-31.0); ABG pH (ARTERIAL) 7.408 UNITS (7.350-7.450)
[2020-06-26] MEDS: D5W/0.45% SODIUM CHLORIDE 1,000 ML IV SCH ×2 (09:52→22:48)
[2020-06-26] MEDS ORDERED: PIPERACILLIN/TAZOBACTAM SOD 3.375 GM in D5W MINI-BAG PLUS 50 ML IV SCH (10:15)
[2020-06-26] MEDS ORDERED: VANCOMYCIN HCL 750 MG, VIAL MATE ADAPTER 1 EACH in D5W 250 ML IV SCH (10:15)
--- NOTE | 2020-06-26 10:56 | IPNPDOC ---
Date Seen The patient was seen on 06/26/20. Progress Note SUBJECTIVE: The patient was seen and examined at the bedside this morning. He is currently on 15 L Venturi mask. He was only minimally responsive to sternal rub and was pointing to his stomach. He seems to have some labored breathing and appears uncomfortable. The overnight team reported that he became more and more hypoxic and required increasing amounts of oxygen and was more lethargic as the night went on. Nursing reports that for the past 3 days the patient has not slept and has been crying out in his room and delusional. He underwent a speech therapy eval yesterday, during which he appeared confused and it was recommended that he be started on pured and honey thickened liquid diet. OBJECTIVE VITAL SIGNS: see below GENERAL: Laying flat in bed, labored breathing, appears to be in distress, minimally responsive to sternal rub HEENT: PERRL, EOMI, Oral mucous membranes are moist without lesions. NECK: JVD difficult to assess. No adenopathy is appreciated. No thyromegaly CHEST/LUNGS: There are upper airway bronchial noises, rhonchi throughout all lung mcduffie, symmetrical chest rise HEART: Regular rate and rhythm. No murmurs, rubs, or gallops are appreciated. Distal pulses are 2+. No carotid bruits appreciated. ABDOMEN: Somewhat distended, Soft, nontender, Bowel sounds are positive. No organomegaly is appreciated. No masses are appreciated. There are no peritoneal signs. There is no Gazelle sign. EXTREMITIES: No peripheral edema. There is no focal long bone tenderness or deformity. SKIN: The patients skin is warm and dry, without rashes or lesions. PSYCHIATRIC: Unable to assess due to patient's lethargy NEUROLOGIC: Unable to assess due to patient's lethargy LABORATORY DATA, IMAGING STUDIES, MICROBIOLOGY: Please see below. CT CHEST: FINDINGS: Bilateral lower lobe consolidations with air bronchograms (right greater than left) along with multifocal infrahilar atelectasis extending into the right middle lobe and lingula. Tracheobronchial tree is relatively patent. No effusion. No pneumothorax. No significant adenopathy. Mediastinum demonstrates atherosclerotic changes to the thoracic aorta and coronary arteries without aortic aneurysm. Mild cardiomegaly is suggested without pericardial effusion. Surrounding musculoskeletal structures demonstrate age-related degenerative changes. IMPRESSION: Moderate lower lobe consolidations with patchy multifocal bibasilar atelectasis. CXR: FINDINGS: Lungs: There is bilateral basilar discoid atelectases, unchanged since the prior exam. Pleural space: Unremarkable. No pleural effusion. No pneumothorax. Heart/Mediastinum: Unremarkable. No cardiomegaly. Bones/joints: Unremarkable. IMPRESSION: Bilateral basilar discoid atelectases. Underlying infiltrates cannot be excluded. RENAL US: Pending Echocardiogram: None ordered DVT prophylaxis ordered?: Lovenox ASSESSMENT AND PLAN: This is a 69 YO M with history of DM2, HTN, HLD who presented on 06/14/20 complaining of paraesthesias and weakness concerning for Guillain-Denver syndrome s/p IVIG. Simultaneously he had some episodes of vomiting and aspiration requiring intubation (06/17/20 - 06/23/20). During that time he completed a 5 day course of Zosyn. Overnight he developed worsening hypoxia and today was found to be more lethargic with leukocytosis concerning for pneumonia. He also has an ED. PROBLEMS: 1. Acute hypoxic respiratory failure: Patient has a recent diagnosis and treatment of Guillain-Denver syndrome. The patient has been quite lethargic, etiology most likely atelectasis versus pneumonia -Patient is currently requiring 15L by venturi mask, is very lethargic on exam, previously was only on 0.5 L nasal cannula -Completed a 7-day course of Zosyn on 06/24/2020 -Blood cultures x2 pending -Lactic acid WNL -ABG this morning, 7.408/40.7/60.8 -CT chest demonstrates moderate lower lobe consolidations with patchy multifocal bibasilar atelectasis. -Sputum culture ordered -Will start broad-spectrum antibiotics, vancomycin and Zosyn to cover for potential aspiration pneumonitis. -MRSA screen ordered, will D/C Vanc if negative -CRP elevated at 11.7 -Pro calcitonin pending -IV fluids D5/ normal saline, 100 mL per hour 2. Sepsis 2/2 suspected aspiration PNA: increasing hypoxia, AMS, hypotension -see above 3. Metabolic encephalopathy in the setting of sepsis: -Patient has new AMS likely 2/2 uremia from ED vs recent use of Dilauded/Seroquel -Likely to improve with abx/fluids -Holding sedating medications at this time 4. Acute kidney injury: Cr today 3.46 from 2.23 yesterday. Has been slowly increasing this hospitalization. Of note, patient did get IV contrast with CT abdomen and pelvis on 06/24/2020 -Pending renal US, urine lytes -UA with reflex to culture -Rodriguez catheter for critical monitoring, as UOP down yesterday to 900cc -No potentially nephrotoxic medications on board -CT abdomen and pelvis from 06/24/2020 demonstrated multiple bilateral low- density structures seen in each kidney having higher than water density Hounsfield unit readings with mild bilateral perinephric stranding. Will clarify this for any changes with renal ultrasound today 5. Transaminitis: AST up to 139, a LT up to 84, alkaline phosphatase 236 -May be related to acute infection, will continue to trend 6. 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 Type 2 diabetes: -Continue Levemir 15 units twice a day -Sliding-scale insulin with hypoglycemic protocol 9. Hypertension: -Continue IV hydralazine with hold parameters at this time -Continue IV labetalol with hold parameters 10. Suicidal ideation: -Will reevaluate once patient's mental status improves 11. Mood disorder, unspecified: -Continue as needed Zyprexa IM 5 mg every 6 hours DISPOSITION: Pending further workup of hypoxia and ED VS, I&O, [facility]H, [facility] Vital Signs/I&O Vital Signs Date Time Temp Pulse Resp B/P (MAP) Pulse Ox O2 Delivery O2 Flow Rate FiO2 06/26/20 07:20 98.9 92 20 105/53 (70) 95 Venturi Mask 15.0 50 I&O- Last 24 Hours up to 6 AM 06/26/20 06:00 Intake Total 1950 ml Output Total 900 ml Balance 1050 ml Laboratory Data 24H LABS Laboratory Tests 2 06/25/20 11:31: Bedside Glucose (Misc Panel) 216H 06/25/20 11:50: Anion Gap 4L, Glomerular Filtration Rate 49.9, Calcium Level 9.4 06/25/20 17:25: Bedside Glucose (Misc Panel) 298H 06/25/20 17:45: Anion Gap 5L, Glomerular Filtration Rate 31.1L, Calcium Level 8.4L 06/25/20 20:25: Bedside Glucose (Misc Panel) 208H 06/26/20 04:52: Blood Gas Bicarbonate Standard 24.1, Arterial Blood pH 7.431, Arterial Blood Partial Pressure CO2 36.3, Arterial Blood Partial Pressure O2 65.1L, Arterial Blood Total CO2 24.7, Arterial Blood HCO3 23.6, Arterial Blood Base Excess -0.3, Arterial Blood Oxygen Saturation 92.3L 06/26/20 05:31: Immature Granulocyte % (Auto) 0.7, Neutrophils (%) (Auto) 79.8H, Lymphocytes (%) (Auto) 13.1L, Monocytes (%) (Auto) 5.2H, Eosinophils (%) (Auto) 0.7, Basophils (%) (Auto) 0.5, Neutrophils # (Auto) 13.5H, Lymphocytes # (Auto) 2.2, Monocytes # (Auto) 0.9H, Eosinophils # (Auto) 0.1, Basophils # (Auto) 0.1, Nucleated Red Blood Cells % (auto) 0.0, Anion Gap 7L, Glomerular Filtration Rate 18.7L, Calcium Level 8.5L, Total Creatine Kinase 205, Creatine Kinase MB < 1.0, Creatine Kinase MB Relative Index 0.49, Troponin I 0.02, NP-Rnv-Q-Type Natriuretic Peptide 351H 06/26/20 08:41: Lactic Acid Level 1.7, Total Bilirubin 0.5, Direct Bilirubin 0.2, Aspartate Amino Transf (AST/SGOT) 139H, Alanine Aminotransferase (ALT/SGPT) 84H, Alkaline Phosphatase 236H, C-Reactive Protein, Quantitative 11.70H, Total Protein 7.8, Albumin 1.9L, Albumin/Globulin Ratio 0.3 06/26/20 09:20: Blood Gas Bicarbonate Standard 24.7, Arterial Blood pH 7.408, Arterial Blood Partial Pressure CO2 40.7, Arterial Blood Partial Pressure O2 60.8L, Arterial Blood Total CO2 26.4, Arterial Blood HCO3 25.1, Arterial Blood Base Excess 0.4, Arterial Blood Oxygen Saturation 90.9L CBC/BMP Laboratory Tests 06/25/20 11:50 06/25/20 17:45 06/26/20 05:31 Microbiology Microbiology 06/16/20 Gram Stain - Final, Complete 06/16/20 CSF Culture - Final, Complete GME ATTESTATION GME ATTESTATION My faculty preceptor for this patient encounter was physically present during the encounter and was fully available. All aspects of the patient interview, examination, medical decision making process, and medical care plan development were reviewed and approved by the faculty preceptor. The faculty preceptor is aware and concurs with the plan as stated in the body of this note and will attest to such by his/her cosignature. ATTENDING NOTE I, Flakita Julio, have independently examined this patient and performed my own physical exam, as well as reviewed the documentation and edited where necessary. I have discussed in detail with the resident / student the findings and plan of treatment as documented by the resident / student and edited their note. I agree with their findings and treatment plan and have edited their documentation. I will continue to follow the patient during this hospital stay. RAJAN DAMON MD Jun 26, 2020 10:56 FLAKITA JULIO MD Jun 26, 2020 16:03
[2020-06-26 11:37] LABS: SODIUM,RANDOM URINE 23 MEQ/L
[2020-06-26 11:41] VITALS: BP 107/59
[2020-06-26] MEDS: PIPERACILLIN/TAZOBACTAM SOD 2.25 GM in D5W MINI-BAG PLUS 50 ML IV SCH ×3 (12:00→22:49)
--- NOTE | 2020-06-26 12:39 | REP ---
INDICATION: ED. COMPARISON: CT 06/24/2020. TECHNIQUE: Real-time sonographic evaluation of the kidneys is performed. FINDINGS: Renal cortical echogenicity pattern is normal bilaterally and contours are smooth. There is mild pelviectasis bilaterally. There is no evidence of overt caliceal dilatation or hydronephrosis. Cyst in the lower pole the right kidney measures 1.4 x 0.9 x 1.3 cm. A cyst in the mid left kidney measures 1.2 cm. The right kidney measures 13.0 x 5.5 x 6.6 cm. Left renal dimensions are 13.0 x 4.0 x 5.4 cm. The urinary bladder is empty and contains a Rodriguez catheter. IMPRESSION: Mild bilateral pelviectasis without caliceal dilatation or overt hydronephrosis. <Electronically signed by Mahad Donaldson > 06/26/20 [id number]
[2020-06-26] MEDS ORDERED: GLUCOSE 4GM CHEW TABLET PO PRN (12:45)
[2020-06-26] MEDS ORDERED: GLUCAGON INJ 1MG VIAL SC PRN (12:45)
[2020-06-26] MEDS ORDERED: DEXTROSE 50% 50 ML SYRINGE IV PRN (12:45)
[2020-06-26 16:00] VITALS: BP 112/54
[2020-06-26 17:29] LABS: BASO # 0.1 10^3/uL (0.0-0.2); BASO % 0.4 % (0.0-1.0); EOS # 0.2 10^3/uL (0.0-0.5); EOS % 1.3 % (0.0-3.0); HEMATOCRIT 37.8 % (42.0-52.0); HEMOGLOBIN 11.3 g/dl (13.5-17.5); LYMPH # 1.8 10^3/uL (1.5-5.0); LYMPH % 12.8 % (24.0-44.0); MEAN CORPUSCULAR HGB CONC 29.9 g/dl (32.0-36.5); MEAN CORPUSCULAR VOLUME 86.9 fl (80.0-96.0); MONO # 0.7 10^3/uL (0.0-0.8); NEUTROPHILS # 11.4 10^3/uL (1.5-8.5); NEUTROPHILS % 79.7 % (36.0-66.0); PLATELET COUNT, AUTOMATED 197 10^3/uL (150-450); RED BLOOD COUNT 4.35 10^6/uL (4.30-6.10); WHITE BLOOD COUNT 14.3 10^3/uL (4.0-10.0)
[2020-06-26] MEDS ORDERED: ACETAMINOPHEN TAB 650MG DOSE (2X325MG) PO PRN (17:45)
[2020-06-26 17:52] LABS: ALBUMIN 1.9 GM/DL (3.2-5.2); BILIRUBIN,TOTAL 0.4 MG/DL (0.2-1.0); CALCIUM LEVEL 8.7 MG/DL (8.8-10.2); CREATININE FOR GFR 4.1 MG/DL (0.70-1.30); GLOMERULAR FILTRATION RATE 15.4 (>42); POTASSIUM SERUM 3.7 MEQ/L (3.5-5.1); TOTAL PROTEIN 7.7 GM/DL (6.4-8.2)
[2020-06-26 20:00] VITALS: BP 108/55
[2020-06-26] MEDS: **NOTE PATIENT COMMENT** MISC XX SCH (20:16)
[2020-06-26] MEDS: ACETAMINOPHEN TAB 650MG DOSE (2X325MG) PO PRN (21:19)
[2020-06-26] MEDS: OLANZapine INTRAMUSCULAR 10MG VIAL IM PRN (22:43)
[2020-06-27] VITALS (7 sets, daily range): BP systolic 78–135; BP diastolic 40–65
[2020-06-27] MEDS ORDERED: NS 1,000 ML IV ONE (00:30)
[2020-06-27] MEDS: HumaLOG INSULIN (NovoLOG) PER UNIT SC SCH ×4 (00:30→17:27)
[2020-06-27 01:12] LABS: HEMATOCRIT 34.7 % (42.0-52.0); HEMOGLOBIN 10.3 g/dl (13.5-17.5); MEAN CORPUSCULAR HEMOGLOBIN 26.3 pg (27.0-33.0); MEAN CORPUSCULAR HGB CONC 29.7 g/dl (32.0-36.5); MEAN CORPUSCULAR VOLUME 88.5 fl (80.0-96.0); PLATELET COUNT, AUTOMATED 182 10^3/uL (150-450); RED BLOOD COUNT 3.92 10^6/uL (4.30-6.10); WHITE BLOOD COUNT 12.4 10^3/uL (4.0-10.0)
[2020-06-27 01:34] LABS: CALCIUM LEVEL 8.2 MG/DL (8.8-10.2); CREATININE FOR GFR 3.92 MG/DL (0.70-1.30); GLOMERULAR FILTRATION RATE 16.2 (>42); POTASSIUM SERUM 3.7 MEQ/L (3.5-5.1)
[2020-06-27] MEDS: ALBUTEROL SULFATE 2.5 MG/0.5 ML INH NEB SOLN NEB SCH ×5 (04:02→19:02)
[2020-06-27] MEDS: D5W/0.45% SODIUM CHLORIDE 1,000 ML IV SCH (05:30)
[2020-06-27] MEDS: PIPERACILLIN/TAZOBACTAM SOD 2.25 GM in D5W MINI-BAG PLUS 50 ML IV SCH ×3 (05:40→16:51)
[2020-06-27 06:07] LABS: BASO # 0.1 10^3/uL (0.0-0.2); BASO % 0.5 % (0.0-1.0); EOS # 0.4 10^3/uL (0.0-0.5); EOS % 3.6 % (0.0-3.0); HEMATOCRIT 35.8 % (42.0-52.0); HEMOGLOBIN 10.7 g/dl (13.5-17.5); LYMPH # 1.3 10^3/uL (1.5-5.0); LYMPH % 11.8 % (24.0-44.0); MEAN CORPUSCULAR HEMOGLOBIN 26.6 pg (27.0-33.0); MEAN CORPUSCULAR HGB CONC 29.9 g/dl (32.0-36.5); MEAN CORPUSCULAR VOLUME 88.8 fl (80.0-96.0); MONO # 0.5 10^3/uL (0.0-0.8); MONO % 4.4 % (0.0-5.0); NEUTROPHILS # 8.5 10^3/uL (1.5-8.5); PLATELET COUNT, AUTOMATED 176 10^3/uL (150-450); RED BLOOD COUNT 4.03 10^6/uL (4.30-6.10); WHITE BLOOD COUNT 10.8 10^3/uL (4.0-10.0)
[2020-06-27 06:31] LABS: CALCIUM LEVEL 7.9 MG/DL (8.8-10.2); CREATININE FOR GFR 3.48 MG/DL (0.70-1.30); GLOMERULAR FILTRATION RATE 18.6 (>42)
[2020-06-27] MEDS: ENOXAPARIN 40MG/0.4ML SYRINGE (J1650 PER 10MG) SC SCH (08:49)
[2020-06-27] MEDS: CHLORHEXIDINE GLUCONATE 0.12 % 15ML UDC (PERIDEX ORAL RINSE) MT SCH ×2 (08:49→21:00)
[2020-06-27] MEDS: LEVEMIR (INSULIN DETEMIR) 1 UNITS/0.01ML SC SCH ×2 (08:49→21:24)
[2020-06-27] MEDS: LIDOCAINE 5% (LIDODERM) PATCH TD SCH (08:50)
[2020-06-27] MEDS: BACITRACIN OINTMENT 30GM TUBE TOP SCH ×2 (09:06→21:25)
[2020-06-27] MEDS ORDERED: SLF 3 ML SYR IV PRN (10:45)
--- NOTE | 2020-06-27 11:15 | IPNPDOC ---
Date Seen The patient was seen on 06/27/20. Progress Note SUBJECTIVE: The patient was seen and examined at the bedside this morning. His mental status has improved significantly this morning. He has very little memory of what originally brought him to the hospital but he is oriented. He has had several incontinent watery bowel movements overnight per nursing. He did get some Zyprexa yesterday evening for anxiety. Otherwise, he has no complaints this morning other than dry mouth. He does report continued suicidality and will likely need a reevaluation by psychiatry. OBJECTIVE VITAL SIGNS: see below GENERAL: Laying flat in bed, appears comfortable, very pleasant and conversive HEENT: PERRL, EOMI, Oral mucous membranes are dry without obvious lesions NECK: JVD difficult to assess. No adenopathy is appreciated. No thyromegaly CHEST/LUNGS: There are upper airway bronchial noises, rhonchi throughout all lung mcduffie, symmetrical chest rise HEART: Regular rate and rhythm. No murmurs, rubs, or gallops are appreciated. Distal pulses are 2+. No carotid bruits appreciated. ABDOMEN: Somewhat distended, Soft, nontender, Bowel sounds are positive. No organomegaly is appreciated. No masses are appreciated. There are no peritoneal signs. There is no Burnham sign. EXTREMITIES: No peripheral edema. There is no focal long bone tenderness or deformity. SKIN: The patients skin is warm and dry, without rashes or lesions. PSYCHIATRIC: Awake, alert, oriented x 3 NEUROLOGIC: decreased sensation in lower extremities bilaterally, strength is 2/5 in bilateral LEs, strength 4/5 in bilateral upper extremities LABORATORY DATA, IMAGING STUDIES, MICROBIOLOGY: Please see below. CT CHEST: FINDINGS: Bilateral lower lobe consolidations with air bronchograms (right greater than left) along with multifocal infrahilar atelectasis extending into the right middle lobe and lingula. Tracheobronchial tree is relatively patent. No effusion. No pneumothorax. No significant adenopathy. Mediastinum demonstrates atherosclerotic changes to the thoracic aorta and coronary arteries without aortic aneurysm. Mild cardiomegaly is suggested without pericardial effusion. Surrounding musculoskeletal structures demonstrate age-related degenerative changes. IMPRESSION: Moderate lower lobe consolidations with patchy multifocal bibasilar atelectasis. CXR: FINDINGS: Lungs: There is bilateral basilar discoid atelectases, unchanged since the prior exam. Pleural space: Unremarkable. No pleural effusion. No pneumothorax. Heart/Mediastinum: Unremarkable. No cardiomegaly. Bones/joints: Unremarkable. IMPRESSION: Bilateral basilar discoid atelectases. Underlying infiltrates cannot be excluded. RENAL US: FINDINGS: Renal cortical echogenicity pattern is normal bilaterally and contours are smooth. There is mild pelviectasis bilaterally. There is no evidence of overt caliceal dilatation or hydronephrosis. Cyst in the lower pole the right kidney measures 1.4 x 0.9 x 1.3 cm. A cyst in the mid left kidney measures 1.2 cm. The right kidney measures 13.0 x 5.5 x 6.6 cm. Left renal dimensions are 13.0 x 4.0 x 5.4 cm. The urinary bladder is empty and contains a Rodriguez catheter. IMPRESSION: Mild bilateral pelviectasis without caliceal dilatation or overt hydronephrosis. Echocardiogram: None ordered DVT prophylaxis ordered?: Lovenox ASSESSMENT AND PLAN: This is a 69 YO M with history of DM2, HTN, HLD who presented on 06/14/20 complaining of paraesthesias and weakness concerning for Guillain-Fishers syndrome s/p IVIG. Simultaneously he had some episodes of vomiting and aspiration requiring intubation (06/17/20 - 06/23/20). During that time he completed a 5 day course of Zosyn. Overnight he developed worsening hypoxia and today was found to be more lethargic with leukocytosis concerning for pneumonia. He also has an ED. PROBLEMS: 1. Acute hypoxic respiratory failure: Patient has a recent diagnosis and treatment of Guillain-Fishers syndrome. The patient has been quite lethargic, etiology most likely atelectasis versus aspiration pneumonia -Patient is saturating in the 90s on 2LNC today -Completed a 7-day course of Zosyn on 06/24/2020 -Blood cultures x2 pending -Lactic acid WNL -CT chest demonstrates moderate lower lobe consolidations with patchy multifocal bibasilar atelectasis. -Sputum culture preliminary finding: GN rods, GP rods -Continue Zosyn for now (Day 2), with plan to deescalate as necessary -MRSA screen negative, Vanc d/c'd -CRP elevated at 11.7 -Pro calcitonin 0.45 -s/p D5w/0.45%NS 2. Sepsis 2/2 suspected aspiration PNA: increasing hypoxia, AMS, hypotension -see above -Pending sputum culture 3. Metabolic encephalopathy in the setting of sepsis: improved this AM -Patient has new AMS likely 2/2 uremia from ED vs recent use of Dilauded/Seroquel 4. Acute kidney injury: Cr trended down from 4.1 to 3.48 today. -Of note, patient did get IV contrast with CT abdomen and pelvis on 06/24/2020 -Renal US demonstrates pelviectasis, likely unrelated to ED -UA not concerning -Rodriguez catheter for critical monitoring, as UOP down -No potentially nephrotoxic medications on board -CT abdomen and pelvis from 06/24/2020 demonstrated multiple bilateral low- density structures seen in each kidney having higher than water density Hounsfield unit readings with mild bilateral perinephric stranding. Will clarify this for any changes with renal ultrasound today -Case discussed with Nephrology (Nancy Manzanares) who suggests ED most likely contrast-induced nephropathy in the setting of previous ED. Consult placed. Appreciate recommendations 5. Transaminitis: AST 127, ALT 76. Improving -May be related to acute infection, will continue to trend 6. Recent history Guillian-Fishers syndrome: -Status post 5 days IVIG -Patient has residual weakness in lower extremities. 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 Dysphagia: -Speech therapy to re-evaluate today 9. Type 2 diabetes: -Continue Levemir 15 units twice a day -Sliding-scale insulin with hypoglycemic protocol 10. Hypertension: -Continue IV hydralazine with hold parameters at this time -Continue IV labetalol with hold parameters -Patient had some hypotension (78/40) overnight but BP normalized this AM. Will continue to monitor 11. Suicidal ideation: -Patient is still expressing suicidality -Will contact Dr. Dillon tomorrow when he is back in-house to re-evaluate him 12. Mood disorder, unspecified: -Continue as needed Zyprexa IM 5 mg every 6 hours DISPOSITION: ST/OT/PT evaluation and ARU screen for possible sub-acute rehab VS, I&O, 24H, [facility] Vital Signs/I&O Vital Signs Date Time Temp Pulse Resp B/P (MAP) Pulse Ox O2 Delivery O2 Flow Rate FiO2 06/27/20 08:00 97.8 78 18 135/63 (87) 98 15.0 40 06/27/20 00:00 Venturi Mask I&O- Last 24 Hours up to 6 AM 06/27/20 06:00 Intake Total 1745 ml Output Total 300 ml Balance 1445 ml Laboratory Data 24H LABS Laboratory Tests 2 06/26/20 10:33: Urine Color DA, Urine Appearance CLOUDYH, Urine pH 5.0, Urine Specific [place] 1.025, Urine Protein 1+H, Urine Glucose (UA) 1+H, Urine Ketones NEGATIVE, Urine Blood 2+H, Urine Nitrite NEGATIVE, Urine Bilirubin 1+H, Urine Urobilinogen 4.0H, Urine Leukocyte Esterase TRACEH, Urine WBC (Auto) 32H, Urine RBC (Auto) 47H, Urine Hyaline Casts (Auto) 0, Urine Bacteria (Auto) NEGATIVE, Urine Squamous Epithelial Cells 1, Urine Mucus (Auto) SMALL, Urine Sperm (Auto) , Urine Random Creatinine 300.0, Urine Random Sodium 23, Methicillin-Resist S.aureus DNA PCR NOT DETECTED 06/26/20 12:17: Procalcitonin 0.45 06/26/20 12:36: Bedside Glucose (Misc Panel) 180H 06/26/20 16:58: Bedside Glucose (Misc Panel) 172H 06/26/20 17:18: Immature Granulocyte % (Auto) 0.8, Neutrophils (%) (Auto) 79.7H, Lymphocytes (%) (Auto) 12.8L, Monocytes (%) (Auto) 5.0, Eosinophils (%) (Auto) 1.3, Basophils (%) (Auto) 0.4, Neutrophils # (Auto) 11.4H, Lymphocytes # (Auto) 1.8, Monocytes # (Auto) 0.7, Eosinophils # (Auto) 0.2, Basophils # (Auto) 0.1, Nucleated Red Blood Cells % (auto) 0.0, Anion Gap 7L, Glomerular Filtration Rate 15.4L, Calcium Level 8.7L, Total Bilirubin 0.4, Aspartate Amino Transf (AST/SGOT) 127H, Alanine Aminotransferase (ALT/SGPT) 76, Alkaline Phosphatase 215H, Total Protein 7.7, Albumin 1.9L, Albumin/Globulin Ratio 0.3 06/26/20 20:14: Bedside Glucose (Misc Panel) 166H 06/26/20 23:58: Bedside Glucose (Misc Panel) 174H 06/27/20 01:00: Nucleated Red Blood Cells % (auto) 0.0, Anion Gap 9, Glomerular Filtration Rate 16.2L, Calcium Level 8.2L, Lactic Acid Level 1.6 06/27/20 05:12: Immature Granulocyte % (Auto) 0.7, Neutrophils (%) (Auto) 79.0H, Lymphocytes (%) (Auto) 11.8L, Monocytes (%) (Auto) 4.4, Eosinophils (%) (Auto) 3.6H, Basophils (%) (Auto) 0.5, Neutrophils # (Auto) 8.5, Lymphocytes # (Auto) 1.3L, Monocytes # (Auto) 0.5, Eosinophils # (Auto) 0.4, Basophils # (Auto) 0.1, Nucleated Red Blood Cells % (auto) 0.0, Anion Gap 8, Glomerular Filtration Rate 18.6L, Calcium Level 7.9L 06/27/20 05:43: Bedside Glucose (Misc Panel) 141H CBC/BMP Laboratory Tests 06/26/20 17:18 06/27/20 01:00 06/27/20 05:12 Microbiology Microbiology 06/26/20 Blood Culture, Received Pending 06/26/20 Urine Culture - Final, Complete 06/26/20 Blood Culture, Received Pending GME ATTESTATION GME ATTESTATION My faculty preceptor for this patient encounter was physically present during the encounter and was fully available. All aspects of the patient interview, examination, medical decision making process, and medical care plan development were reviewed and approved by the faculty preceptor. The faculty preceptor is aware and concurs with the plan as stated in the body of this note and will attest to such by his/her cosignature. ATTENDING NOTE I, Flakita Julio, have independently examined this patient and performed my own physical exam, as well as reviewed the documentation and edited where necessary. I have discussed in detail with the resident / student the findings and plan of treatment as documented by the resident / student and edited their note. I agree with their findings and treatment plan and have edited their documentation. I will continue to follow the patient during this hospital stay. RAJAN DAMON MD Jun 27, 2020 10:17 FLAKITA JULIO MD Jun 27, 2020 12:41
[2020-06-27] MEDS: D5W 1,000 ML IV SCH (12:12)
[2020-06-27] MEDS: SLF 3 ML SYR IV SCH ×2 (12:14→21:26)
[2020-06-27] MEDS ORDERED: LOPERAMIDE 2 MG CAPLET PO ONE (16:45)
[2020-06-27] MEDS ORDERED: diphenhydrAMINE CREAM 30GM TOP PRN (17:15)
[2020-06-27] MEDS: AUGMENTIN 500 MG TAB PO SCH (21:24)
[2020-06-27] MEDS: **NOTE PATIENT COMMENT** MISC XX SCH (21:25)
[2020-06-27] MEDS ORDERED: LOPERAMIDE 2 MG CAPLET PO PRN (22:15)
[2020-06-28] VITALS: BP 158/76
[2020-06-28] MEDS: HumaLOG INSULIN (NovoLOG) PER UNIT SC SCH ×4 (01:06→18:00)
[2020-06-28] MEDS: D5W 1,000 ML IV SCH (03:12)
[2020-06-28 04:00] VITALS: BP 143/74
[2020-06-28] MEDS: ALBUTEROL SULFATE 2.5 MG/0.5 ML INH NEB SOLN NEB SCH ×6 (04:00→19:56)
[2020-06-28] MEDS: SLF 3 ML SYR IV SCH ×3 (05:58→20:38)
[2020-06-28 06:45] LABS: BASO # 0.1 10^3/uL (0.0-0.2); BASO % 0.9 % (0.0-1.0); EOS # 0.5 10^3/uL (0.0-0.5); EOS % 7.7 % (0.0-3.0); HEMATOCRIT 37.1 % (42.0-52.0); HEMOGLOBIN 10.9 g/dl (13.5-17.5); LYMPH % 15.5 % (24.0-44.0); MEAN CORPUSCULAR HEMOGLOBIN 25.9 pg (27.0-33.0); MEAN CORPUSCULAR HGB CONC 29.4 g/dl (32.0-36.5); MEAN CORPUSCULAR VOLUME 88.1 fl (80.0-96.0); MONO # 0.3 10^3/uL (0.0-0.8); MONO % 4.1 % (0.0-5.0); NEUTROPHILS # 4.5 10^3/uL (1.5-8.5); NEUTROPHILS % 71.5 % (36.0-66.0); PLATELET COUNT, AUTOMATED 214 10^3/uL (150-450); RED BLOOD COUNT 4.21 10^6/uL (4.30-6.10); WHITE BLOOD COUNT 6.3 10^3/uL (4.0-10.0)
[2020-06-28 07:04] LABS: CALCIUM LEVEL 8.7 MG/DL (8.8-10.2); CREATININE FOR GFR 1.42 MG/DL (0.70-1.30); GLOMERULAR FILTRATION RATE 52.3 (>42); MAGNESIUM LEVEL 2.4 MG/DL (1.8-2.4); POTASSIUM SERUM 3.5 MEQ/L (3.5-5.1)
[2020-06-28 07:33] VITALS: BP 140/74
[2020-06-28] MEDS: AUGMENTIN 500 MG TAB PO SCH ×2 (09:08→20:37)
[2020-06-28] MEDS: LEVEMIR (INSULIN DETEMIR) 1 UNITS/0.01ML SC SCH ×2 (09:08→20:37)
[2020-06-28] MEDS: ENOXAPARIN 40MG/0.4ML SYRINGE (J1650 PER 10MG) SC SCH (09:08)
[2020-06-28] MEDS: LIDOCAINE 5% (LIDODERM) PATCH TD SCH (09:09)
[2020-06-28] MEDS: BACITRACIN OINTMENT 30GM TUBE TOP SCH ×2 (09:09→20:37)
[2020-06-28] MEDS: KCL 20MEQ IN D5W 1000ML 1,000 ML IV SCH ×2 (10:04→23:46)
--- NOTE | 2020-06-28 10:44 | MHIPNPDOC ---
[facility] [address] [facility] Progress Note Progress Note The patient was seen on 06/28/20. Subjective HPI: Nacho presents today for a follow-up. Patient reports feeling much better. 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 He reports no significant depressive symptoms at this time and has been otherwise doing well. Objective Appearance: Well groomed. Well nourished. Appears to be stated age. Behavior: Pleasant. Cooperative with good eye contact. Engaged. Affect: Full range. Appropriate to context. Mood: Euthymic. Appropriately reactive. Generally good. Speech: Spontaneous and Fluid. Normal rate. Normal volume. Motor: No gross motor abnormalities. Cognition: Alert, Attentive, and Oriented to person, place, time. Memory: No formal testing. No gross abnormalities of short or care home memory noted during interview. Thought Form: Linear and goal directed. Thought Content: No evidence of aggressive or homicidal ideation. No evidence of suicidal ideation. No evidence of delusions. No thoughts of self harm. Perception: No perceptual abnormalities noted. Judgement: Intact as evidenced by decision making in the recent past. Insight: Good insight into symptoms and treatment options. Assessment F33.8 Other recurrent depressive disorders Plan Patient to go to ARU. Vital Signs Vital Signs Date Time Temp Pulse Resp B/P (MAP) Pulse Ox O2 Delivery O2 Flow Rate FiO2 06/28/20 07:33 97.5 75 20 140/74 (96) 95 Nasal Cannula 2.0 06/27/20 08:00 40 Laboratory Data 24H Labs Laboratory Tests 2 06/27/20 11:18: Bedside Glucose (Misc Panel) 195H 06/27/20 17:00: Bedside Glucose (Misc Panel) 282H 06/28/20 00:48: Bedside Glucose (Misc Panel) 223H 06/28/20 05:50: Bedside Glucose (Misc Panel) 183H 06/28/20 06:26: Immature Granulocyte % (Auto) 0.3, Neutrophils (%) (Auto) 71.5H, Lymphocytes (%) (Auto) 15.5L, Monocytes (%) (Auto) 4.1, Eosinophils (%) (Auto) 7.7H, Basophils (%) (Auto) 0.9, Neutrophils # (Auto) 4.5, Lymphocytes # (Auto) 1.0L, Monocytes # (Auto) 0.3, Eosinophils # (Auto) 0.5, Basophils # (Auto) 0.1, Nucleated Red Blood Cells % (auto) 0.0, Anion Gap 5L, Glomerular Filtration Rate 52.3, Calcium Level 8.7L, Magnesium Level 2.4 CBC/BMP Laboratory Tests 06/28/20 06:26 Current Medications Current Medications Medications (Trade) Dose Ordered Sig/Gabrielle Route PRN Reason Start Time Stop Time Status Last Admin Dose Admin Acetaminophen (Tylenol Tab) 650 mg Q4H PRN PO PAIN OR FEVER 06/14/20 10:30 06/17/20 20:07 DC 06/17/20 06:45 Acetaminophen (Tylenol Tab) 650 mg Q4HP PRN PO PAIN OR FEVER 06/25/20 10:30 06/26/20 21:19 Acetaminophen (Tylenol Tab) 650 mg Q4HP PRN PO PAIN OR FEVER 06/26/20 17:45 06/26/20 17:45 DC Albuterol Sulfate (Proventil Neb) 2.5 mg RQ4H NEB 06/17/20 20:00 06/27/20 19:02 Amlodipine Besylate (Norvasc) 10 mg DAILY PO 06/16/20 08:00 06/17/20 19:33 DC 06/17/20 09:04 Amoxicillin/ Clavulanate Potassium (Augmentin) 500 mg Q12H PO 06/27/20 21:00 06/28/20 09:08 Aspirin (Ecotrin) 81 mg Q2D PO 06/15/20 09:00 06/17/20 19:33 DC 06/17/20 09:03 Bacitracin (Bacitracin Oint) APPLY THIN STRIP TO UP... BID TOP 06/20/20 09:00 06/28/20 09:09 Bisacodyl (Dulcolax Suppository) 10 mg BID ID 06/24/20 09:00 06/25/20 10:21 DC 06/24/20 10:01 Chlorhexidine Gluconate (Peridex Oral Rinse) SWAB/BRUSH ORAL CAVITY BID MT 06/17/20 21:00 06/27/20 21:23 DC 06/27/20 08:49 Dexmedetomidine HCl 200 mcg/IV Miscellaneous Supplies 50 ml @ 0 mls/hr Q0M IV 06/22/20 10:00 06/23/20 18:18 DC 06/23/20 07:41 Dextrose (Dextrose 50%) 25 ml ASDIRECTED PRN IV SEE LABEL COMMENTS 06/26/20 12:45 Dextrose (Dextrose 50%) 25 ml ASDIRECTED PRN IV SEE LABEL COMMENTS 06/14/20 11:15 06/26/20 12:55 DC Dextrose/Sodium Chloride 1,000 ml @ 100 mls/hr Q10H IV 06/26/20 09:30 06/27/20 10:15 DC 06/27/20 05:30 Dextrose/Water 1,000 ml @ 80 mls/hr [id number] IV 06/25/20 07:30 06/26/20 09:27 DC 06/25/20 20:25 Dextrose/Water 1,000 ml @ 100 mls/hr Q10H IV 06/27/20 12:00 06/28/20 08:20 DC 06/28/20 03:12 Diphenhydramine HCl (Benadryl Cream) APPLY to AREAS of PRURITIS DAILYPRN PRN TOP ITCHING 06/27/20 17:15 Diphenhydramine HCl (Benadryl) 50 mg QHSP PRN IV INSOMNIA 06/23/20 20:00 06/25/20 10:21 DC 06/23/20 20:27 Docusate Sodium (Colace) 100 mg BID PO 06/16/20 09:00 06/17/20 19:33 DC 06/17/20 09:04 Docusate Sodium (Colace) 100 mg BIDP PRN PO CONSTIPATION 06/25/20 10:15 Enoxaparin Sodium (Lovenox) 40 mg DAILY SC 06/15/20 09:00 06/28/20 09:08 Etomidate (Amidate) 20 mg STAT STAT IV 06/17/20 20:41 06/17/20 20:57 DC 06/17/20 21:09 Gabapentin (Neurontin) 400 mg TID PO 06/17/20 13:15 06/17/20 19:33 DC 06/17/20 13:24 Gabapentin (Neurontin) 1,200 mg QHS PO 06/14/20 21:00 06/17/20 13:07 DC 06/16/20 20:13 Glucagon (Glucagon) 1 mg ASDIRECTED PRN SC SEE LABEL COMMENTS 06/26/20 12:45 Glucagon (Glucagon) 1 mg ASDIRECTED PRN SC SEE LABEL COMMENTS 06/14/20 11:15 06/26/20 12:55 DC Glucose (Glucose) 16 GM ASDIRECTED PRN PO SEE LABEL COMMENTS 06/26/20 12:45 Glucose (Glucose) 16 GM ASDIRECTED PRN PO SEE LABEL COMMENTS 06/14/20 11:15 06/26/20 12:55 DC Home Med (Med Rec Complete!) ASDIRECTED XX 06/14/20 11:15 06/14/20 11:10 DC Hydralazine HCl (Apresoline) 10 mg Q1H PRN IV htn 06/16/20 10:45 06/21/20 23:07 Hydralazine HCl (Apresoline) 10 mg STAT STAT IV 06/16/20 10:44 06/16/20 10:46 DC Hydralazine HCl (Apresoline) 50 mg Q6H PRN PO HTN 06/16/20 09:00 06/17/20 19:33 DC 06/17/20 06:45 Hydromorphone HCl (Dilaudid) 0.15 mg Q3HP PRN IV MILD PAIN (PS 1-4) 06/24/20 18:00 06/25/20 10:28 DC Hydromorphone HCl (Dilaudid) 0.3 mg Q3HP PRN IV MILD PAIN (PS 1-4) 06/24/20 01:00 06/24/20 16:32 DC Hydromorphone HCl (Dilaudid) 0.3 mg Q3HP PRN IV MODERATE PAIN (PS 5-7) 06/24/20 18:00 06/25/20 10:28 DC Hydromorphone HCl (Dilaudid) 0.6 mg Q3HP PRN IV MODERATE PAIN (PS 5-7) 06/24/20 01:00 06/24/20 16:32 DC 06/24/20 14:50 Ibuprofen (Advil) 800 mg Q8HP PRN PO MODERATE PAIN (PS 5-7) 06/15/20 08:15 06/16/20 09:10 DC 06/15/20 23:10 Immune Globulin 40 gm/IV Miscellaneous Supplies 400 ml @ 0 mls/hr Q24H IV 06/15/20 13:00 06/19/20 13:01 AK 06/19/20 14:41 Insulin Detemir (Levemir Insulin) 7 units BID WI 06/17/20 09:00 06/20/20 09:13 DC 06/20/20 08:36 Insulin Detemir (Levemir Insulin) 10 units DAILY WI 06/15/20 12:00 06/17/20 07:55 DC 06/16/20 08:02 Insulin Detemir (Levemir Insulin) 15 units BID WI 06/20/20 21:00 06/21/20 10:08 DC 06/21/20 08:40 Insulin Detemir (Levemir Insulin) 15 units BID WI 06/24/20 09:00 06/28/20 09:08 Insulin Detemir (Levemir Insulin) 20 units BID WI 06/21/20 21:00 06/22/20 12:14 DC 06/22/20 08:14 Insulin Detemir (Levemir Insulin) 25 units BID WI 06/22/20 21:00 06/24/20 09:20 DC 06/23/20 20:02 Insulin Human Lispro (HumaLOG INSULIN) SEE PROTOCOL TABLE AC WI 06/25/20 12:00 06/26/20 12:44 DC 06/26/20 08:29 Insulin Human Lispro (HumaLOG INSULIN) SEE PROTOCOL TABLE AC WI 06/14/20 12:00 06/17/20 20:57 DC 06/17/20 17:50 Insulin Human Lispro (HumaLOG INSULIN) SEE PROTOCOL TABLE Q6H WI 06/26/20 12:00 06/28/20 05:58 Insulin Human Lispro (HumaLOG INSULIN) SEE PROTOCOL TABLE Q6H WI 06/17/20 18:00 06/25/20 10:21 DC 06/24/20 06:44 Insulin Human Lispro (HumaLOG INSULIN) SEE PROTOCOL TABLE QHS WI 06/25/20 21:00 06/26/20 12:44 DC Insulin Human Lispro (HumaLOG INSULIN) SEE PROTOCOL TABLE [facility] 06/14/20 21:00 06/17/20 20:57 DC Ketorolac Tromethamine (ToRADol) 30 mg Q6H IV 06/17/20 18:00 06/19/20 08:52 DC 06/19/20 06:19 Labetalol HCl (Normodyne, Trandate) 20 mg Q1H PRN IV htn 06/14/20 10:45 06/20/20 23:53 Lidocaine (Lidoderm Patch) 2 patch DAILY TD 06/16/20 09:00 06/28/20 09:09 Lisinopril (Prinivil) 20 mg DAILY PO 06/15/20 09:00 06/15/20 11:15 DC 06/15/20 08:33 Lisinopril (Prinivil) 40 mg DAILY PO 06/16/20 09:00 06/17/20 19:33 DC 06/17/20 09:03 Loperamide HCl (Imodium) 4 mg Q6HP PRN PO AFTER EACH LOOSE STOOL 06/27/20 22:15 Loratadine (Claritin) 10 mg DAILY PO 06/14/20 09:00 06/17/20 19:33 DC 06/17/20 09:05 Midazolam HCl (Versed) 2 mg Q15MP PRN IV AGITATION 06/17/20 20:15 06/23/20 18:18 DC 06/23/20 03:47 Miscellaneous (Unresolved Clarification Entry) SEE LABEL COMMENTS DAILY XX 06/21/20 09:00 06/22/20 07:10 DC 06/21/20 21:48 Morphine Sulfate (Morphine Sulfate Inj) 1 mg Q4H PRN IV PAIN LEVEL 7-10 06/16/20 09:00 06/16/20 10:48 DC Morphine Sulfate (Morphine Sulfate Inj) 2 mg Q2H PRN IV BREAKTHROUGH PAIN 06/21/20 10:15 06/24/20 01:05 DC 06/24/20 00:24 Morphine Sulfate (Morphine Sulfate Inj) 2 mg Q4H PRN IV PAIN LEVEL 7-10 06/16/20 13:00 06/21/20 10:08 DC 06/21/20 08:39 Non-Formulary Medication ( See Comment Field Below ) REMOVE LIDODERM PATCH DAILY@21 XX 06/16/20 21:00 06/27/20 21:25 Olanzapine (Zyprexa Intramuscular) 5 mg Q6HP PRN IM agitation 06/23/20 20:00 06/26/20 22:43 Omeprazole (PriLOSEC) 20 mg DAILY PO 06/14/20 09:00 06/17/20 19:33 DC 06/17/20 09:04 Ondansetron HCl (ZOFRAN INJection) 4 mg Q6H IV 06/17/20 08:00 06/21/20 13:32 DC 06/21/20 07:29 Ondansetron HCl (ZOFRAN INJection) 4 mg Q6HP PRN IV NAUSEA OR VOMITING 06/21/20 13:30 Pantoprazole Sodium (Protonix) 40 mg DAILY IV 06/18/20 09:00 06/25/20 10:21 DC 06/25/20 08:22 Pantoprazole Sodium (Protonix) 40 mg DAILY PO 06/26/20 09:00 06/26/20 08:06 DC Paroxetine HCl (PAXil) 10 mg DAILY PO 06/15/20 09:00 06/17/20 19:33 DC 06/17/20 09:05 Piperacillin Sod/ Tazobactam Sod 2.25 gm/Dextrose 50 ml @ 100 mls/hr Q6H IV 06/26/20 11:00 06/27/20 19:03 DC 06/27/20 16:51 Piperacillin Sod/ Tazobactam Sod 3.375 gm/Dextrose 50 ml @ 50 mls/hr Q6H IV 06/26/20 10:15 06/26/20 10:27 DC Piperacillin Sod/ Tazobactam Sod 3.375 gm/Dextrose 50 ml @ 50 mls/hr Q6H IV 06/17/20 20:00 06/24/20 23:59 DC 06/24/20 20:34 Polyethylene Glycol (Miralax) 1 pkt DAILYPRN PRN PO CONSTIPATION 06/16/20 09:00 06/24/20 20:21 DC 06/21/20 20:49 Potassium Chloride/Dextrose 1,000 ml @ 100 mls/hr Q10H IV 06/28/20 08:30 06/28/20 10:04 Propofol 1000 mg/ IV Miscellaneous Supplies 100 ml @ 6.03 mls/hr [id number] IV 06/17/20 20:10 06/23/20 09:03 DC 06/22/20 03:02 Quetiapine Fumarate (SEROquel) 25 mg QHS PO 06/25/20 21:00 06/26/20 18:46 DC Ramelteon (Rozerem) 8 mg QHS PRN PO INSOMNIA 06/23/20 19:45 Cancel Ramelteon (Rozerem) 8 mg QHS PRN PO INSOMNIA 06/16/20 00:15 06/17/20 19:33 DC 06/16/20 20:13 Rocuronium [place] (Zemuron) 50 mg ASDIRECTED IV 06/17/20 20:45 06/17/20 22:30 DC 06/17/20 21:30 Rosuvastatin Calcium (Crestor) 40 mg QPM PO 06/14/20 21:00 06/17/20 19:33 DC 06/16/20 20:11 Sodium Chloride 1,000 ml @ 100 mls/hr Q10H IV 06/24/20 14:00 06/25/20 07:23 DC 06/25/20 00:00 Sodium Chloride 1,000 ml @ 120 mls/hr Q8H20M IV 06/16/20 09:30 06/17/20 20:07 DC 06/17/20 13:38 Sodium Chloride (Saline Lock Flush) 2 ml ASDIRECTED PRN IV SEE LABEL COMMENTS 06/27/20 10:45 Sodium Chloride (Saline Lock Flush) 2 ml SLF IV 06/27/20 14:00 06/27/20 12:14 Tramadol HCl (Ultram) 50 mg Q6HP PRN PO MODERATE PAIN (PS 5-7) 06/16/20 09:00 06/17/20 19:33 DC 06/17/20 06:46 Vancomycin HCl 750 mg/IV Miscellaneous Supplies 1 each/ Dextrose 275 ml @ 275 mls/hr Q24H IV 06/26/20 10:15 06/26/20 12:44 DC Vitamin D (Vitamin D) 1,000 units DAILY PO 06/14/20 09:00 06/17/20 19:33 DC 06/17/20 09:04 Allergies Coded Allergies: latex (Verified Allergy, Intermediate, blisters, 03/14/19) DEIRDRE BOWDEN DO Jun 28, 2020 10:44
--- NOTE | 2020-06-28 14:04 | IPNPDOC ---
Date Seen The patient was seen on 06/28/20. Progress Note SUBJECTIVE: The patient was seen and examined at the bedside this morning. He had a good night and is feeling well this morning. He looks much better and his mental status is better than yesterday. In speaking to him, he states he has not had any suicidal ideation for the past few days, but he does acknowledge that he had it before. He is open to the idea of going to acute rehabilitation. He denies any SOB, CP or abdominal pain. OBJECTIVE VITAL SIGNS: see below GENERAL: Laying flat in bed, appears comfortable, very pleasant and conversive HEENT: PERRL, EOMI, Oral mucous membranes are dry without obvious lesions NECK: JVD difficult to assess. No adenopathy is appreciated. No thyromegaly CHEST/LUNGS: There are upper airway bronchial noises, rhonchi throughout all lung mcduffie, symmetrical chest rise HEART: Regular rate and rhythm. No murmurs, rubs, or gallops are appreciated. Distal pulses are 2+. No carotid bruits appreciated. ABDOMEN: Somewhat distended, Soft, nontender, Bowel sounds are positive. No organomegaly is appreciated. No masses are appreciated. There are no peritoneal signs. There is no Natalia sign. EXTREMITIES: No peripheral edema. There is no focal long bone tenderness or deformity. SKIN: The patients skin is warm and dry, without rashes or lesions. PSYCHIATRIC: Awake, alert, oriented x 3 NEUROLOGIC: decreased sensation in lower extremities bilaterally, strength is 2/5 in bilateral LEs, strength 4/5 in bilateral upper extremities LABORATORY DATA, IMAGING STUDIES, MICROBIOLOGY: Please see below. RENAL US: FINDINGS: Renal cortical echogenicity pattern is normal bilaterally and contours are smooth. There is mild pelviectasis bilaterally. There is no evidence of overt caliceal dilatation or hydronephrosis. Cyst in the lower pole the right kidney measures 1.4 x 0.9 x 1.3 cm. A cyst in the mid left kidney measures 1.2 cm. The right kidney measures 13.0 x 5.5 x 6.6 cm. Left renal dimensions are 13.0 x 4.0 x 5.4 cm. The urinary bladder is empty and contains a Arenas catheter. IMPRESSION: Mild bilateral pelviectasis without caliceal dilatation or overt hydronephrosis. Echocardiogram: None ordered DVT prophylaxis ordered?: Lovenox ASSESSMENT AND PLAN: This is a 69 YO M with history of DM2, HTN, HLD who presented on 06/14/20 complaining of paraesthesias and weakness concerning for Guillain-[place] syndrome s/p IVIG. Simultaneously he had some episodes of vomiting and aspiration requiring intubation (06/17/20 - 06/23/20). During that time he completed a 5 day course of Zosyn. He is currently undergoing treatment for presumed aspiration pneumonia. PROBLEMS: 1. Acute hypoxic respiratory failure: Etiology most likely atelectasis versus a spiration pneumonia -Patient is saturating in the 90s on 2LNC today -Completed a 7-day course of Zosyn on 06/24/2020 -Blood cultures x2 negative thus far -Lactic acid WNL -CT chest demonstrates moderate lower lobe consolidations with patchy multifocal bibasilar atelectasis. -Sputum culture preliminary finding: GN rods, GP rods -Zosyn switched to Augmentin (day 2) -MRSA screen negative, Vanc d/c'd -CRP elevated at 11.7 -Pro calcitonin 0.45 -s/p D5w/0.45%NS 2. Sepsis 2/2 suspected aspiration PNA: increasing hypoxia, AMS, hypotension -see above -Pending sputum culture 3. Metabolic encephalopathy in the setting of sepsis: improved this AM -Patient has new AMS likely 2/2 uremia from ED vs recent use of Dilauded/Seroquel 4. Acute kidney injury: Cr trended down to 1.42 today -Of note, patient did get IV contrast with CT abdomen and pelvis on 06/24/2020 -Renal US demonstrates pelviectasis, likely unrelated to ED -UA not concerning -D/c arenas catheter today -No potentially nephrotoxic medications on board -CT abdomen and pelvis from 06/24/2020 demonstrated multiple bilateral low-density structures seen in each kidney having higher than water density Hounsfield unit readings with mild bilateral perinephric stranding. Will clarify this for any changes with renal ultrasound today -Case discussed with Nephrology (Nancy Manzanares) who suggests ED most likely contrast-induced nephropathy in the setting of previous ED. Consult placed. Appreciate recommendations 5. Transaminitis: AST 127, ALT 76. Improving -May be related to acute infection, will continue to trend 6. 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 Dysphagia: -Speech therapy to re-evaluate today 9. Type 2 diabetes: -Continue Levemir 15 units twice a day -Sliding-scale insulin with hypoglycemic protocol 10. Hypertension: BP stable -Continue IV hydralazine with hold parameters at this time -Continue IV labetalol with hold parameters 11. Suicidal ideation: -Patient is still expressing suicidality -Dr. Dillon will re-evaluate today 12. Mood disorder, unspecified: -Continue as needed Zyprexa IM 5 mg every 6 hours DISPOSITION: ST/OT/PT evaluation and ARU screen for possible sub-acute rehab VS, I&O, 24H, Fishbone Vital Signs/I&O Vital Signs Date Time Temp Pulse Resp B/P (MAP) Pulse Ox O2 Delivery O2 Flow Rate FiO2 06/28/20 07:33 97.5 75 20 140/74 (96) 95 Nasal Cannula 2.0 06/27/20 08:00 40 I&O- Last 24 Hours up to 6 AM 06/28/20 06:00 Intake Total 4270 ml Output Total 2885 ml Balance 1385 ml Laboratory Data 24H LABS Laboratory Tests 2 06/27/20 17:00: Bedside Glucose (Misc Panel) 282H 06/28/20 00:48: Bedside Glucose (Misc Panel) 223H 06/28/20 05:50: Bedside Glucose (Misc Panel) 183H 06/28/20 06:26: Immature Granulocyte % (Auto) 0.3, Neutrophils (%) (Auto) 71.5H, Lymphocytes (%) (Auto) 15.5L, Monocytes (%) (Auto) 4.1, Eosinophils (%) (Auto) 7.7H, Basophils (%) (Auto) 0.9, Neutrophils # (Auto) 4.5, Lymphocytes # (Auto) 1.0L, Monocytes # (Auto) 0.3, Eosinophils # (Auto) 0.5, Basophils # (Auto) 0.1, Nucleated Red Blood Cells % (auto) 0.0, Anion Gap 5L, Glomerular Filtration Rate 52.3, Calcium Level 8.7L, Magnesium Level 2.4 06/28/20 12:05: Bedside Glucose (Misc Panel) 151H CBC/BMP Laboratory Tests 06/28/20 06:26 Microbiology Microbiology 06/26/20 Blood Culture - Preliminary, Resulted No Growth after 48 hours. All Specime... 06/26/20 Urine Culture - Final, Complete 06/26/20 Blood Culture - Preliminary, Resulted No Growth after 48 hours. All Specime... 06/26/20 Gram Stain - Final, Complete 06/26/20 Sputum Culture - Final, Complete GME ATTESTATION GME ATTESTATION My faculty preceptor for this patient encounter was physically present during the encounter and was fully available. All aspects of the patient interview, examination, medical decision making process, and medical care plan development were reviewed and approved by the faculty preceptor. The faculty preceptor is aware and concurs with the plan as stated in the body of this note and will attest to such by his/her cosignature. ATTENDING NOTE I, Flakita Julio, have independently examined this patient and performed my own physical exam, as well as reviewed the documentation and edited where necessary. I have discussed in detail with the resident / student the findings and plan of treatment as documented by the resident / student and edited their note. I agree with their findings and treatment plan and have edited their documentation. I will continue to follow the patient during this hospital stay. RAJAN DAMON MD Jun 28, 2020 14:04 FLAKITA JULIO MD Jun 28, 2020 15:32
[2020-06-28 16:00] VITALS: BP 120/89
[2020-06-28 20:00] VITALS: BP 141/65
[2020-06-28] MEDS: **NOTE PATIENT COMMENT** MISC XX SCH (20:38)
[2020-06-29] MEDS: HumaLOG INSULIN (NovoLOG) PER UNIT SC SCH ×4 (01:26→17:42)
[2020-06-29] MEDS: ALBUTEROL SULFATE 2.5 MG/0.5 ML INH NEB SOLN NEB SCH ×6 (03:04→19:54)
[2020-06-29 04:00] VITALS: BP 124/68
[2020-06-29] MEDS: KCL 20MEQ IN D5W 1000ML 1,000 ML IV SCH ×2 (04:30→14:04)
[2020-06-29] MEDS: SLF 3 ML SYR IV SCH ×3 (05:08→21:26)
[2020-06-29 07:23] LABS: HEMATOCRIT 37.1 % (42.0-52.0); HEMOGLOBIN 11.6 g/dl (13.5-17.5); MEAN CORPUSCULAR HEMOGLOBIN 27.2 pg (27.0-33.0); MEAN CORPUSCULAR HGB CONC 31.3 g/dl (32.0-36.5); MEAN CORPUSCULAR VOLUME 86.9 fl (80.0-96.0); PLATELET COUNT, AUTOMATED 256 10^3/uL (150-450); RED BLOOD COUNT 4.27 10^6/uL (4.30-6.10); WHITE BLOOD COUNT 6.7 10^3/uL (4.0-10.0)
[2020-06-29 07:45] LABS: ALT/SGPT 74 U/L (12-78); BILIRUBIN,TOTAL 0.5 MG/DL (0.2-1.0); BLOOD UREA NITROGEN 42 MG/DL (7-18); CALCIUM LEVEL 8.1 MG/DL (8.8-10.2); CARBON DIOXIDE LEVEL 26 MEQ/L (21-32); CHLORIDE LEVEL 113 MEQ/L (98-107); CREATININE FOR GFR 1.01 MG/DL (0.70-1.30); GLOMERULAR FILTRATION RATE > 60.0 (>42); GLUCOSE, FASTING 143 MG/DL (70-100); MAGNESIUM LEVEL 1.8 MG/DL (1.8-2.4); POTASSIUM SERUM 3.8 MEQ/L (3.5-5.1); SODIUM LEVEL 146 MEQ/L (136-145)
--- NOTE | 2020-06-29 07:53 | CR ---
DATE: 06/27/2020 REQUESTING PHYSICIAN: Becky House MD. CONSULTING PHYSICIAN: Shayy Manzanares DO. REASON FOR CONSULTATION: Oliguric acute renal failure. HISTORY OF PRESENT ILLNESS: Nacho Connell is previously unknown to me. He is a 69-year-old male with a past medical history significant for type-2 diabetes, hypertension, hyperlipidemia, diabetic neuropathy which presented to [facility] on June 14 with complaint of paresthesias in the arm followed by paresthesias in the legs. 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 He was intubated from June 17 -June 23 due to vomiting and aspiration pneumonia and ventilator dependent respiratory failure. He was treated with a 5 day course of Zosyn. He had a mild ED while in the Intensive Care Unit with a creatinine going up to 1.5; however, this downtrended to 1.2 on June 24. Subsequently he had an I.V. contrast CT scan of the abdomen and pelvis on June 24 and over the following 2 days he went into oliguric renal failure with a blood urea nitrogen of 112 on labs this morning and a creatinine of 4. A nephrology evaluation was subsequently requested. The patient has been oligoanuric the past 24 hours with no recorded urine output. Patient was seen and examined this morning in the Progressive Care Unit where I found him to be lethargic and difficult to arouse and he did not offer any history or cooperate with physical exam. History is thus obtained from chart review and discussion with the health care team. PAST MEDICAL HISTORY: * Hypertension. * Dyslipidemia. * Type-2 diabetes. * Diabetic neuropathy. * GERD. * Lumbar spinal stenosis. * Cervical spinal stenosis. * BPH. * Vitamin D deficiency. PAST SURGICAL HISTORY: None listed. ALLERGIES: LATEX. HOME MEDICATIONS: * Aspirin 81 mg daily. * Vitamin D. * Gabapentin. * Lisinopril. * Loratadine. * Metformin. * Multivitamin. * [place] 3 fatty acid. * Omeprazole. * Rosuvastatin. * Onglyza. * Acarbose. * Ibuprofen as needed. * naproxen as needed SOCIAL HISTORY: He is a former smoker. Chart review does not mention any alcohol or drug use. FAMILY HISTORY: Unobtainable. REVIEW OF SYSTEMS: Unable to obtain secondary to clinical condition. PHYSICAL EXAMINATION: Vital signs: Temperature 98.1, pulse 87, respiratory rate 18, blood pressure 104/58, saturating 95% on 2 liter nasal cannula. Urine output yesterday was 0. There was no incontinent void recorded. He had 6 bowel movements yesterday and 9 bowel movements today. This morning he had 300 mL in the Rodriguez catheter since 6:00 a.m. General: Patient is seen lying in bed, head of the bed elevated, drowsy and only mutters incomprehensibly when I try to arouse him. There is a 1:1 sitter present at the bedside.0 HEENT: His pupils react to light. His tongue is dry. Neck: Veins do not seem to be elevated. Respiratory: He is seen on nasal cannula at the time of my visit. There is no accessory muscle use or tachypneic. There is scattered rhonchus bilaterally. Heart: Sounds are regular. There is no leg edema or dependent edema. Abdomen: There are bowel sounds. He does not grimace to palpation. Genitourinary: Rodriguez catheter with blood tinged urine. Extremities: I saw him moving his arms, but he did not move his legs at the time of my visit. There is no leg edema. Skin: Warm and dry with normal turgor. Neurologic: Not assessed. LABORATORY DATA: Sodium 150, potassium 4, bicarbonate 26, BUN 106, creatinine 3.4. Hemoglobin 10.7, platelets 176. Urinalysis on admission was negative for blood and protein. His creatinine on the before he received contrast was 1.2. Blood cultures from June 26 no growth for 24 hours times 2 sets. Urine culture from June 26 no growth. RADIOLOGY STUDIES: Renal ultrasound June 26 shows mild pelviectasis without the overt hydronephrosis. There is a Rodriguez catheter placed. INPATIENT MEDICATIONS: * I stopped his D5 half ns and I switched him to D5W at 100 mL an hour. * Tylenol p.r.n. * Albuterol every 4 hours. * Augmentin 500 mg by mouth twice a day. * Bacitracin topical ointment. * Colace p.r.n. * Enoxaparin 40 mg subcutaneously daily. * Hydralazine 10 mg I.V. p.r.n. * Insulin. * Labetalol 20 mg I.V. p.r.n. * Loperamide 4 mg by mouth times 1. * Loperamide 4 mg by mouth q6h p.r.n. * Olanzapine p.r.n. * Zofran p.r.n. PROBLEMS: 1. Acute renal failure secondary to contrast induced nephropathy: Patient had a mild acute kidney injury while in the Intensive Care Unit with a peak creatinine of 1.5. This downtrended to 1.2 on June 24. That same day he had an I.V. contrast CT scan and subsequently went into a contrast induced nephropathy with recent acute kidney injury as a risk factor for recurrent acute kidney injury. He was oligoanuric on the with no urine output recorded. His blood urea nitrogen levels are just over 100, creatinine is up to 4, but his electrolytes are acceptable as is his acid base status. There is no urgent indication for dialysis initiation. His urine output is improving, this morning he had 300 mL in the Rodriguez catheter when I saw him and I would continue to monitor for signs of renal recovery. Please hold off on any further dye based imaging unless urgent. 2. Hypernatremia: Patient is having copious diarrhea as per the nursing staff. I am unable to order GI PCR as he has already been in the hospital for more than 2 nights. Primary team has order loperamide. I am switching the I.V. fluids to D5W at 100 as he has a significant free water deficit related to the diarrhea and decreased oral intake. 3. Aspiration pneumonia and acute hypoxic respiratory failure: He has had increasing oxygen requirements the past 24 hours with a Venturi mask, but he is now back on nasal cannula and he is being treated with Zosyn for aspiration pneumonia. 4. Frequent diarrhea, poor oral intake and hypernatremia: He is on loperamide per primary team. Continue hypotonic I.V. fluids at this time. Thank you for involving in the care of Mr. Connell. I will be happy to follow him along with you. DERIAN
--- NOTE | 2020-06-29 07:55 | IPN ---
DATE: 06/28/2020 SUBJECTIVE: Mr. Connell is seen and examined this morning at the bedside. I found him to be completely awake, alert, conversational and oriented x3. His renal function has improved nicely over the past 24 hours and his urine output has improved as well. He denies any shortness of breath at rest and his oxygen requirements have come down also. PHYSICAL EXAMINATION: VITAL SIGNS: Temperature is 97.5, pulse is 75, respiratory rate is 20, blood pressure is 140/74, saturating 95% on 2 liters nasal cannula. Intake yesterday was 4 liters. Urine output was 2.2 liters, net positive 1800 mL. Weight on the bed scale today is 93.7 kg. GENERAL APPEARANCE: Patient is seen sitting up in bed, head of the bed elevated, awake, alert, oriented x3. Conversational and cooperative with physical exam complaining of thirstiness. HEENT: Extraocular muscles are intact. The tongue is dry. NECK: Neck veins are not elevated. HEART: Heart sounds are regular, S1 and S2. There is no peripheral edema. LUNGS: Symmetric air entry that is without any accessory muscle use nor tachypnea. There is occasional rhonchus. ABDOMEN: Soft and nontender. GENITOURINARY: Rodriguez catheter. EXTREMITIES: His feet are in float boots. He wiggles his toes on command. He lifts his upper extremities on command. SKIN: Warm and dry. PSYCHIATRIC: He is calm and cooperative at the time of my visit. There is a 1:1 sitter present at the bedside due to patients suicidal ideation. LABS: Sodium 148, potassium 3.5, BUN 66, creatinine 1.4, magnesium 2.4, hemoglobin 10.9, platelets 214,000. Blood cultures: No growth 48 hours x2 sets from June 26. INPATIENT MEDICATIONS: I switched his fluids to D5W with 20 mEq of potassium to run at 100 mL an hour. He is on Augmentin 500 mg b.i.d. His Zosyn was discontinued by the primary team. He is receiving Loperamide p.r.n. The remainder of the medications are unchanged from prior. PROBLEMS: 1. Contrast induced nephropathy, now in renal recovery phase. His oliguria has resolved. His urine output is now adequate. He still has a free water deficit and hypernatremia but this is improving. I have switched his fluids to D5W with 20 mEq of potassium chloride to keep running at 100 mL per hour. His renal ultrasound showed some mild pelviectasis but there is no overt hydronephrosis. He already has a Rodriguez catheter. His medications are appropriate for a GFR and he is not on any nephrotoxics. Please avoid any contrast studies at present unless they are emergent. 2. Hypernatremia. Patient has a free water deficit, he is receiving D5W. There is mild hypokalemia and potassium is added to his IV fluid. He is presently on a pureed diet. I expect his sodium level to continue to improve. 3. Aspiration pneumonia, hypoxic respiratory failure. His oxygen requirements are downtrending, he is on 2 liters nasal cannula today. His blood cultures were negative. His antibiotic has been deescalated to Augmentin per the primary team. He is on a pureed diet due to aspiration risk. 4. 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 He is going to need rehabilitation. He is being optimized for the same. [facility]
[2020-06-29 08:00] VITALS: BP 145/67
[2020-06-29 08:06] LABS: EOSINOPHILS 2 % (0-3); LYMPHOCYTES 17 % (16-44); MONOCYTES 4 % (0-5); NEUTROPHILS 77 % (28-66); PLATELET ESTIMATE NORMAL (NORMAL)
[2020-06-29] MEDS: ENOXAPARIN 40MG/0.4ML SYRINGE (J1650 PER 10MG) SC SCH (08:42)
[2020-06-29] MEDS: BACITRACIN OINTMENT 30GM TUBE TOP SCH ×2 (08:43→21:24)
[2020-06-29] MEDS: LIDOCAINE 5% (LIDODERM) PATCH TD SCH (08:43)
[2020-06-29] MEDS: LEVEMIR (INSULIN DETEMIR) 1 UNITS/0.01ML SC SCH ×2 (08:45→21:00)
[2020-06-29] MEDS: AUGMENTIN 500 MG TAB PO SCH ×2 (08:45→21:24)
[2020-06-29] MEDS: OLANZapine INTRAMUSCULAR 10MG VIAL IM PRN (11:01)
--- NOTE | 2020-06-29 11:45 | DS.PDOC ---
Discharge Summary General Date of Admission Jun 14, 2020 at 10:29 Date of Discharge June 29, 2020 Attending Physician: FLAKITA JULIO MD Specialist/Consultants Involve: ELYSIA CHIN DO Specialist/Consultants Involve DO Yong Majano DO Bruce Baird, MD Samah Mohiuddin, MD Discharge Summary PROCEDURES PERFORMED DURING STAY: Lumbar puncture ADMITTING DIAGNOSES: 1. Weakness 2. Hypertensive Emergency 3. DM2 4. Cauda Equina Syndrome? 5. Suicidal ideation 6. Guillian [place] Syndrome DISCHARGE DIAGNOSES: 1. Guillan [place] Syndrome 2. Physical deconditiong 3. Acute hypoxic respiratory failure 2/2 GBS, aspiration pneumonia 4. Acute contrast-induced nephropathy, improved 5. DM2 6. Mood disorder COMPLICATIONS/CHIEF COMPLAINT: Hypertenive Emergency,Paresthesia,Weakness. HISTORY OF PRESENT ILLNESS: Patient 69 years old male with history of hypertension, hyperlipidemia, type 2 diabetes presented to the hospital with i ncreased numbness and weakness of both feet. Patient stated that for past 48 hours he has been having increased numbness of his feet associated with weakness. Also patient stated that it became worse and from feet rising to his proximal legs. Also patient mentioned that he started feeling weakness in his both hands with numbness. Patient has diabetes polyneuropathy but he stated that legs sensation is different. Patient had 2 weeks ago flu vaccination and 6 days ago he had diarrhea, which subsequently resolved. In ER patient was found to have no leukocytosis, lactic acid 2.2, lumbar MRI showed Multilevel significant central canal stenosis. Most severe at L4-5 but moderate to severe at L3-4 and L2-3. Multilevel neural foraminal narrowing as above. Focal disc protrusion seen at L1-2, L3-4, L4-5, and L5-S1 contributing to thecal sac compression. Also patient was found to have elevated blood pressure of 220/95 HOSPITAL COURSE: -Acute hypoxic respiratory failure: Patient was intubated (06/17/20 - 06/23/20) secondary to aspiration and inability to protect airway. During that time he completed a 7-day course of Zosyn on 06/24/2020. The patient did have acute hypoxemia after being extubated and was started again on Zosyn and transitioned to Augmentin. CT chest demonstrated moderate lower lobe consolidations with patchy multifocal bibasilar atelectasis. -Acute kidney injury: Secondary to contrast-induced nephropathy. Cr peaked at 4.1 and improved to 1.01 on the day of discharge. -Transaminitis: trended down. Likely 2/2 acute infection -Guillan [place] syndrome: Patient found to have parasthesias and loss of reflexes on admission. He was found to have severe stenosis in L4-L5 on Lumbar MRI. He was then assessed for possible cauda equina syndrome by Orthopaedic surgery, who stated it was less likely. LP on admission concerning for GBS thought to be 2/2 recent immunization vs diarrheal illness. The patient received 5 days of IVIG. He did suffer from critical care myopathy with weakness and later determined to require rehab after discharge. -Dysphagia: thought to be 2/2 GBS. He was evaluated twice by speech therapy who recommended honey thickened liquids and pureed diet. -Type 2 diabetes: stable on current dose Levemir 15 units twice a day -Suicidal ideation:The patient was initially expressing suicidality on admission. He later stated that this was out of frustration with his illness. He was cleared by psychiatry on 06/28/2020 DISCHARGE MEDICATIONS: Please see below. ALLERGIES: Please see below. PHYSICAL EXAMINATION ON DISCHARGE: VITAL SIGNS: Please see below. GENERAL: Laying flat in bed, appears comfortable, very pleasant and conversive HEENT: PERRL, EOMI, Oral mucous membranes are dry without obvious lesions NECK: JVD difficult to assess. No adenopathy is appreciated. No thyromegaly CHEST/LUNGS: There are upper airway bronchial noises, rhonchi throughout all lung mcduffie, symmetrical chest rise HEART: Regular rate and rhythm. No murmurs, rubs, or gallops are appreciated. Distal pulses are 2+. No carotid bruits appreciated. ABDOMEN: Somewhat distended, Soft, nontender, Bowel sounds are positive. No organomegaly is appreciated. No masses are appreciated. There are no peritoneal signs. There is no [place] sign. EXTREMITIES: No peripheral edema. There is no focal long bone tenderness or deformity. SKIN: The patients skin is warm and dry, without rashes or lesions. PSYCHIATRIC: Awake, alert, oriented x 3 NEUROLOGIC: decreased sensation in lower extremities bilaterally, strength is 2/5 in bilateral LEs, strength 4/5 in bilateral upper extremities LABORATORY DATA: Please see below. IMAGING: HEAD CT 06/14/20: FINDINGS: Bone window settings demonstrate an intact bony calvarium. There is no evidence of skull fracture or incidental bony calvarial lesion. The visualized paranasal sinuses appear clear. No intraorbital abnormality is seen. On soft tissue window setting images; the lateral, third, and fourth ventricles are normal in size and position. Donaldson-white differentiation pattern is normal above and below the tentorium. Th ere are is no evidence of intracranial hemorrhage. No mass, edema, infarction, or midline shift is seen. No extra-axial fluid collection is appreciated. Vascular calcification is seen in the distal internal carotid arteries. There is mild generalized volume loss. IMPRESSION: Vascular calcification and mild diffuse atrophy. No acute intracranial abnormality LUMBAR SPINE MRI 06/14/20: IMPRESSION: Multilevel significant central canal stenosis. Most severe at L4-5 but moderate to severe at L3-4 and L2-3. Multilevel neural foraminal narrowing as above. Focal disc protrusion seen at L1-2, L3-4, L4-5, and L5-S1 contributing to thecal sac compression. Developmentally small canal size. THORACIC SPINE MRI 06/14/20: IMPRESSION: 1. Mild increased STIR signal intensity is identified within the lower thoracic spinal cord extending from T9-T10. This is suggestive of mild edema or myelopathy, although this abnormal signal is not confirmed on axial images. Clinical correlation and follow-up postcontrast sequences are recommended. 2. Degenerative changes are identified at multiple thoracic levels, as described above. 3. Edema is identified within the T7-8 and T8-9 discs, which is likely degenerative or due to discitis. Mild edema is seen within the T9-10 and disc and adjacent bone marrow, which is also likely degenerative although an infectious etiology cannot be excluded. Clinical correlation recommended. 4. Broad-based disc bulges are identified at T10-11 and T11-12, with minimal narrowing of the thecal sac at these levels. 5. Mild right neural foraminal narrowing at T2-3. Slight narrowing of the left neural foramen at T11-12. 6. Mild increased kyphosis of the thoracic spine. 7. Borderline aneurysmal dilatation of the descending thoracic aorta measuring 3.0 cm in diameter. 8. A 3.3 cm right renal cyst or cystic lesion is partially visualized. Follow-up ultrasonography recommended. CERVICAL SPINE MRI 06/14/20: IMPRESSION: 1. Degenerative changes are noted at multiple cervical levels, as described above. 2. At C3-C4, there is a broad-based disc bulge with protrusion causing moderate narrowing of the thecal sac and slight flattening of the ventral border of the spinal cord. 3. At C4-C5, a broad-based disc protrusion is identified with moderate spinal canal stenosis. There is mild increased concavity/compression of the cervical spinal cord. 4. Mild narrowing of the thecal sac at C5-C6. 5. Neural foraminal narrowing visualized from C3-C4 through C7-T1. THORACIC SPINE MRI 06/16/2020: IMPRESSION: 1. Pattern enhancement consistent with degenerative change. I do not see compelling evidence for discitis as the marrow adjacent to the endplates showed no enhancement and there is no extradural enhancement or paraspinal tissue enhancement. 2. There is no enhancement of the thoracic cord or appearance that would clearly defined myelomalacia intramedullary lesion or extramedullary dural enhancement. CT ABD/PEL with IV contrast 06/24/20: IMPRESSION: 1. Cholelithiasis 2. Renal findings as described above. Likely hyperdense cysts, however, neoplastic change involving any one of the hyperdense lesions cannot be ruled out by this exam. Pre and post gadolinium enhanced renal MRI is recommended. 3. Lung base findings as described above. Pneumonia versus atelectasis versus a combination of both. 4. Other findings as described above. RENAL US 06/26/20: FINDINGS: Renal cortical echogenicity pattern is normal bilaterally and contours are smooth. There is mild pelviectasis bilaterally. There is no evidence of overt caliceal dilatation or hydronephrosis. Cyst in the lower pole the right kidney measures 1.4 x 0.9 x 1.3 cm. A cyst in the mid left kidney measures 1.2 cm. The right kidney measures 13.0 x 5.5 x 6.6 cm. Left renal dimensions are 13.0 x 4.0 x 5.4 cm. The urinary bladder is empty and contains a Rodriguez catheter. IMPRESSION: Mild bilateral pelviectasis without caliceal dilatation or overt hydronephrosis. CT CHEST 06/26/20: FINDINGS: Bilateral lower lobe consolidations with air bronchograms (right greater than left) along with multifocal infrahilar atelectasis extending into the right middle lobe and lingula. Tracheobronchial tree is relatively patent. No effusion. No pneumothorax. No significant adenopathy. Mediastinum demonstrates atherosclerotic changes to the thoracic aorta and coronary arteries without aortic aneurysm. Mild cardiomegaly is suggested without pericardial effusion. Surrounding musculoskeletal structures demonstrate age-related degenerative changes. IMPRESSION: Moderate lower lobe consolidations with patchy multifocal bibasilar atelectasis. PROGNOSIS: fair ACTIVITY: [As tolerated]. DIET: honey thickened liquids, pureed diet DISCHARGE PLAN: Acute rehab unit DISPOSITION: . DISCHARGE INSTRUCTIONS: none ITEMS TO FOLLOWUP ON ON OUTPATIENT: none DISCHARGE CONDITION: [Stable]. TIME SPENT ON DISCHARGE: Greater than 45 minutes. Vital Signs/I&Os Vital Signs Date Time Temp Pulse Resp B/P (MAP) Pulse Ox O2 Delivery O2 Flow Rate FiO2 06/29/20 08:00 96.8 83 18 145/67 (93) 91 Nasal Cannula 2.0 06/27/20 08:00 40 I&O- Last 24 Hours up to 6 AM 06/29/20 06:00 Intake Total 2530 ml Output Total 1500 ml Balance 1030 ml Laboratory Data Labs 24H Laboratory Tests 2 06/28/20 12:05: Bedside Glucose (Misc Panel) 151H 06/28/20 17:22: Bedside Glucose (Misc Panel) 118H 06/29/20 01:20: Bedside Glucose (Misc Panel) 120H 06/29/20 05:27: Bedside Glucose (Misc Panel) 142H 06/29/20 07:00: Neutrophils (%) (Auto) , Nucleated Red Blood Cells % (auto) 0.0, Neutrophils 77H, Lymphocytes (Manual) 17, Monocytes (Manual) 4, Eosinophils (Manual) 2, Red Blood Cell Morphology NORMAL, Platelet Estimate NORMAL, Anion Gap 7L, Glomerular Filtration Rate > 60.0, Calcium Level 8.1L, Magnesium Level 1.8, Total Bilirubin 0.5, Aspartate Amino Transf (AST/SGOT) 138H, Alanine Aminotransferase (ALT/SGPT) 74, Alkaline Phosphatase 248H, Total Protein 7.0, Albumin 2.0L, Albumin/Globulin Ratio 0.4 CBC/BMP Laboratory Tests 06/29/20 07:00 FSBS Laboratory Tests Test 06/28/20 12:05 06/28/20 17:22 06/29/20 01:20 06/29/20 05:27 Range/Units Bedside Glucose (Misc Panel) 151 118 120 142 83-110 MG/DL Microbiology Microbiology 11/17/20 Blood Culture - Preliminary, Resulted No Growth after 48 hours. All Specime... 06/26/20 Urine Culture - Final, Complete 06/26/20 Blood Culture - Preliminary, Resulted No Growth after 48 hours. All Specime... 06/26/20 Gram Stain - Final, Complete 06/26/20 Sputum Culture - Final, Complete Discharge Medications Scheduled Acarbose (Acarbose) 50 Mg Tablet, 50 MG PO WM, (Reported) Aspirin (Aspirin EC) 81 Mg Tablet.dr, 81 MG PO Q2D, (Reported) Cholecalciferol (Vitamin D3) (Vitamin D3) 1,000 Unit Tablet, 1,000 UNITS PO DAILY, (Reported) Gabapentin (Gabapentin) 400 Mg Capsule, 1,200 MG PO QHS, (Reported) Lisinopril (Lisinopril) 40 Mg Tablet, 20 MG PO DAILY, (Reported) Loratadine (Claritin) 10 Mg Capsule, 10 MG PO DAILY, (Reported) Metformin HCl (Metformin HCl ER) 500 Mg Tab.er.24h, 1,000 MG PO BID, (Reported) Multivitamin (Multivitamins) 1 Each Capsule, 1 CAP PO QPM, (Reported) [place]-3/Dha/Epa/Fish Oil (Fish Oil 1,000 mg Softgel) 1 Each Capsule, 1,000 MG PO QPM, (Reported) Omeprazole (Omeprazole) 20 Mg Capsule.dr, 20 MG PO DAILY, (Reported) Rosuvastatin Calcium (Rosuvastatin Calcium) 40 Mg Tablet, 40 MG PO QPM, (Reported) Saxagliptin HCl (Onglyza) 5 Mg Tablet, 5 MG PO DAILY, (Reported) Scheduled PRN Ibuprofen (Ibuprofen) 200 Mg Capsule, 400 MG PO QID PRN for PAIN, (Reported) Naproxen Sodium (Aleve) 220 Mg Tablet, 440 MG PO BID PRN for PAIN, (Reported) Allergies Coded Allergies: latex (Verified Allergy, Intermediate, blisters, 03/14/19) GME ATTESTATION GME ATTESTATION My faculty preceptor for this patient encounter was physically present during the encounter and was fully available. All aspects of the patient interview, examination, medical decision making process, and medical care plan development were reviewed and approved by the faculty preceptor. The faculty preceptor is aware and concurs with the plan as stated in the body of this note and will attest to such by his/her cosignature. ATTENDING NOTE I, Flakita Julio, have independently examined this patient and performed my own physical exam, as well as reviewed the documentation and edited where necessary. I have discussed in detail with the resident / student the findings and plan of treatment as documented by the resident / student and edited their note. I agree with their findings and treatment plan and have edited their documentation . I will continue to follow the patient during this hospital stay. Time spent on discharge 35 minutes RAJAN DAMON MD Jun 29, 2020 10:30 FLAKITA JULIO MD Jun 29, 2020 18:48
[2020-06-29 12:00] VITALS: BP 141/73
[2020-06-29 20:00] VITALS: BP 151/68
[2020-06-29] MEDS: **NOTE PATIENT COMMENT** MISC XX SCH (21:24)
[2020-06-30] MEDS: ALBUTEROL SULFATE 2.5 MG/0.5 ML INH NEB SOLN NEB SCH ×7 (03:56→23:43)
[2020-06-30 04:00] VITALS: BP 138/76
[2020-06-30] MEDS: SLF 3 ML SYR IV SCH ×3 (06:01→22:10)
[2020-06-30] MEDS: HumaLOG INSULIN (NovoLOG) PER UNIT SC SCH ×4 (06:01→17:15)
[2020-06-30 07:45] VITALS: BP 157/72
[2020-06-30 08:00] LABS: HEMATOCRIT 35.4 % (42.0-52.0); HEMOGLOBIN 10.9 g/dl (13.5-17.5); MEAN CORPUSCULAR HEMOGLOBIN 26.3 pg (27.0-33.0); MEAN CORPUSCULAR HGB CONC 30.8 g/dl (32.0-36.5); MEAN CORPUSCULAR VOLUME 85.3 fl (80.0-96.0); PLATELET COUNT, AUTOMATED 234 10^3/uL (150-450); RED BLOOD COUNT 4.15 10^6/uL (4.30-6.10); WHITE BLOOD COUNT 5.7 10^3/uL (4.0-10.0)
[2020-06-30 08:28] LABS: ALT/SGPT 57 U/L (12-78); BILIRUBIN,TOTAL 0.4 MG/DL (0.2-1.0); BLOOD UREA NITROGEN 29 MG/DL (7-18); C REACTIVE PROTEIN QUANTITATIV 3.77 MG/DL (0.00-0.30); CALCIUM LEVEL 8.1 MG/DL (8.8-10.2); CARBON DIOXIDE LEVEL 25 MEQ/L (21-32); CHLORIDE LEVEL 111 MEQ/L (98-107); CREATININE FOR GFR 0.92 MG/DL (0.70-1.30); GLOMERULAR FILTRATION RATE > 60.0 (>42); GLUCOSE, FASTING 126 MG/DL (70-100); MAGNESIUM LEVEL 1.6 MG/DL (1.8-2.4); POTASSIUM SERUM 3.6 MEQ/L (3.5-5.1); SODIUM LEVEL 141 MEQ/L (136-145); TOTAL PROTEIN 7.4 GM/DL (6.4-8.2)
[2020-06-30] MEDS: amLODIPine 5 MG TAB PO SCH (09:00)
[2020-06-30 09:08] LABS: ATYPICAL LYMPH 4 % (0-5); BASOPHILS 1 % (0-1); EOSINOPHILS 5 % (0-3); LYMPHOCYTES 19 % (16-44); MONOCYTES 7 % (0-5); NEUTROPHILS 64 % (28-66)
[2020-06-30 09:09] LABS: PLATELET ESTIMATE NORMAL (NORMAL)
[2020-06-30] MEDS: AUGMENTIN 500 MG TAB PO SCH ×2 (09:09→22:10)
[2020-06-30] MEDS: TAMSULOSIN 0.4 MG CAP PO SCH (09:10)
[2020-06-30] MEDS: LEVEMIR (INSULIN DETEMIR) 1 UNITS/0.01ML SC SCH ×2 (09:10→21:00)
[2020-06-30] MEDS: ENOXAPARIN 40MG/0.4ML SYRINGE (J1650 PER 10MG) SC SCH (09:11)
[2020-06-30] MEDS: BACITRACIN OINTMENT 30GM TUBE TOP SCH ×2 (09:11→22:10)
[2020-06-30] MEDS: LIDOCAINE 5% (LIDODERM) PATCH TD SCH (09:11)
[2020-06-30] MEDS ORDERED: DIAPER RELIEF PASTE (DESITIN) 60GM TOP PRN (09:15)
--- NOTE | 2020-06-30 09:50 | IPNPDOC ---
Date Seen The patient was seen on 06/30/20. Progress Note SUBJECTIVE: The patient was seen and examined at the bedside this morning. He is somewhat discouraged today waiting for pending transfer to ARU. He reports decreased appetite. He is frustrated with having to use the bedpan and wants to walk to the bathroom himself. Otherwise, he denies any chest pain/shortness of breath/abdominal pain/n/v/d. OBJECTIVE VITAL SIGNS: see below GENERAL: Sitting up in bed, appears comfortable, very pleasant and conversive HEENT: PERRL, EOMI, Oral mucous membranes are dry without obvious lesions NECK: JVD difficult to assess. No adenopathy is appreciated. No thyromegaly CHEST/LUNGS: clear to auscultation bilaterally, rhonchi throughout all lung mcduffie, symmetrical chest rise HEART: Regular rate and rhythm. No murmurs, rubs, or gallops are appreciated. D istal pulses are 2+. No carotid bruits appreciated. ABDOMEN: Somewhat distended, Soft, nontender, Bowel sounds are positive. No organomegaly is appreciated. No masses are appreciated. There are no peritoneal signs. There is no [place] sign. EXTREMITIES: No peripheral edema. There is no focal long bone tenderness or deformity. SKIN: The patients skin is warm and dry, without rashes or lesions. PSYCHIATRIC: Awake, alert, oriented x 3 NEUROLOGIC: decreased sensation in lower extremities bilaterally, strength is 2/5 in bilateral LEs, strength 4/5 in bilateral upper extremities LABORATORY DATA, IMAGING STUDIES, MICROBIOLOGY: Please see below. Echocardiogram: None ordered DVT prophylaxis ordered?: Stepan ASSESSMENT AND PLAN: This is a 69 YO M with history of DM2, HTN, HLD who presented on 06/14/20 complaining of paraesthesias and weakness concerning for Guillain-[place] syndrome s/p IVIG. Simultaneously he had some episodes of vomiting and aspiration requiring intubation (06/17/20 - 06/23/20). During that time he completed a 5 day course of Zosyn. He is currently undergoing treatment for presumed aspiration pneumonia and is slated to go to ARU. PROBLEMS: 1. Acute hypoxic respiratory failure: Etiology most likely atelectasis versus aspiration pneumonia -Oxygenation has improved, he is documented 99% on 2L, encouraged to get out of bed today - will titrate off oxygen -Completed a 7-day course of Zosyn on 06/24/2020 -Blood cultures x2 negative thus far -Lactic acid WNL -CT chest demonstrates moderate lower lobe consolidations with patchy multifocal bibasilar atelectasis. -Sputum culture finding: GN rods, GP rods -Continue Augmentin (day 3); s/p Zosyn for 2 days (Antibiotic day #5) 2. Metabolic encephalopathy in the setting of sepsis: improved this AM -Patient has new AMS likely 2/2 uremia from ED vs recent use of Dilaudid/Seroquel 3. Acute kidney injury: Cr trended down to 0.92 -Of note, patient did get IV contrast with CT abdomen and pelvis on 06/24/2020 -Renal US demonstrates pelviectasis, likely unrelated to ED -UA not concerning -Nephrology consulted and cleared patient. 4. Transaminitis: AST 86, ALT 57. Improving -May be related to acute infection, will continue to trend 5. 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 Dysphagia: -Speech therapy recommended level 2 diet, thin liquids, small sips 8. Type 2 diabetes: -Continue Levemir 15 units twice a day -Sliding-scale insulin with hypoglycemic protocol 9. Hypertension: BP stable - Will DC IV hydralazine and Labetalol - Will start Amlodipine with hold parameters 10. Recent history of suicidal ideation: -cleared by psychiatry 11. Mood disorder, unspecified: -Continue as needed Zyprexa IM 5 mg every 6 hours DISPOSITION: - Will need rehabilitation moving forward VS, I&O, 24H, [facility] Vital Signs/I&O Vital Signs Date Time Temp Pulse Resp B/P (MAP) Pulse Ox O2 Delivery O2 Flow Rate FiO2 06/30/20 07:45 97.2 73 20 157/72 (100) 99 Nasal Cannula 2.0 06/27/20 08:00 40 I&O- Last 24 Hours up to 6 AM 06/30/20 05:59 Intake Total 786 ml Output Total 550 ml Balance 236 ml Laboratory Data 24H LABS Laboratory Tests 2 06/29/20 11:57: Bedside Glucose (Misc Panel) 94 06/29/20 17:36: Bedside Glucose (Misc Panel) 126H 06/29/20 20:12: Bedside Glucose (Misc Panel) 94 06/29/20 23:44: Bedside Glucose (Misc Panel) 125H 06/30/20 05:52: Bedside Glucose (Misc Panel) 158H 06/30/20 07:50: Neutrophils (%) (Auto) , Nucleated Red Blood Cells % (auto) 0.0, Neutrophils 64, Lymphocytes (Manual) 19, Monocytes (Manual) 7H, Eosinophils (Manual) 5H, Basophils (Manual) 1, Atypical Lymphocytes 4, Platelet Estimate NORMAL, Anion Gap 5L, Glomerular Filtration Rate > 60.0, Calcium Level 8.1L, Magnesium Level 1.6L, Total Bilirubin 0.4, Aspartate Amino Transf (AST/SGOT) 86H, Alanine Aminotransferase (ALT/SGPT) 57, Alkaline Phosphatase 215H, C-Reactive Protein, Quantitative 3.77H, Total Protein 7.4, Albumin 2.0L, Albumin/Globulin Ratio 0.4 CBC/BMP Laboratory Tests 06/30/20 07:50 Microbiology Microbiology 06/26/20 Blood Culture - Preliminary, Resulted No Growth after 72 hours. All specime... 06/26/20 Urine Culture - Final, Complete 06/26/20 Blood Culture - Preliminary, Resulted No Growth after 72 hours. All specime... 06/26/20 Gram Stain - Final, Complete 06/26/20 Sputum Culture - Final, Complete GME ATTESTATION GME ATTESTATION My faculty preceptor for this patient encounter was physically present during the encounter and was fully available. All aspects of the patient interview, examination, medical decision making process, and medical care plan development were reviewed and approved by the faculty preceptor. The faculty preceptor is aware and concurs with the plan as stated in the body of this note and will attest to such by his/her cosignature. ATTENDING NOTE I, Flakita Panchal, have independently examined this patient and performed my own physical exam, as well as reviewed the documentation and edited where necessary. I have discussed in detail with the resident / student the findings and plan of treatment as documented by the resident / student and edited their note. I agree with their findings and treatment plan and have edited their documentation. I will continue to follow the patient during this hospital stay. RAJAN DAMON MD Jun 30, 2020 09:50 FLAKITA PANCHAL MD Jun 30, 2020 13:59
[2020-06-30] MEDS ORDERED: MAG SULF 1GM/100ML (MAG RUN) 1 GM in IV 1 EA IV ONE (10:00)
[2020-06-30] MEDS: LACTOBACILLUS ACIDOPHILUS CAP (BACID) PO SCH (10:15)
--- NOTE | 2020-06-30 12:56 | ECGEPIP ---
[facility] Test Date: 2020-06-26 Pat Name: ONDINA CLEANING Department: Room: M7655-23 Gender: Male Plant Guide: BRIANNA : [id number] Requested By: DUKE Fletcher Order Number: [id number] Reading MD: Fer Red Measurements Intervals [place] Rate: 93 P: 33 HI: 143 QRS: 40 QRSD: 160 T: 3 QT: 402 QTc: 502 Interpretive Statements SINUS RHYTHM WITH FREQUENT VENTRICULAR PREMATURE COMPLEXES IN TRIGEMINY RIGHT BUNDLE BRANCH BLOCK Compared to prior (2) tracings in the system earlier this month, no significant c changes Electronically Signed on 06-30-2020 12:56:38 EST by Fer Red
[2020-06-30 15:28] VITALS: BP 154/84
[2020-06-30 20:00] VITALS: BP 152/76
[2020-06-30] MEDS: **NOTE PATIENT COMMENT** MISC XX SCH (21:00)
[2020-07-01] MEDS: ALBUTEROL SULFATE 2.5 MG/0.5 ML INH NEB SOLN NEB SCH ×6 (03:53→23:19)
[2020-07-01 04:00] VITALS: BP 151/72
[2020-07-01 05:20] LABS: HEMATOCRIT 36.6 % (42.0-52.0); HEMOGLOBIN 11.3 g/dl (13.5-17.5); MEAN CORPUSCULAR HEMOGLOBIN 26.2 pg (27.0-33.0); MEAN CORPUSCULAR HGB CONC 30.9 g/dl (32.0-36.5); MEAN CORPUSCULAR VOLUME 84.7 fl (80.0-96.0); PLATELET COUNT, AUTOMATED 255 10^3/uL (150-450); RED BLOOD COUNT 4.32 10^6/uL (4.30-6.10)
[2020-07-01 05:34] LABS: BLOOD UREA NITROGEN 25 MG/DL (7-18); CALCIUM LEVEL 7.6 MG/DL (8.8-10.2); CARBON DIOXIDE LEVEL 26 MEQ/L (21-32); CHLORIDE LEVEL 107 MEQ/L (98-107); CREATININE FOR GFR 0.89 MG/DL (0.70-1.30); GLOMERULAR FILTRATION RATE > 60.0 (>42); GLUCOSE, FASTING 133 MG/DL (70-100); MAGNESIUM LEVEL 1.4 MG/DL (1.8-2.4); POTASSIUM SERUM 3.6 MEQ/L (3.5-5.1); SODIUM LEVEL 140 MEQ/L (136-145)
[2020-07-01] MEDS: HumaLOG INSULIN (NovoLOG) PER UNIT SC SCH ×4 (05:43→18:04)
[2020-07-01] MEDS: SLF 3 ML SYR IV SCH ×3 (05:43→21:24)
[2020-07-01 05:49] LABS: BASOPHILS 2 % (0-1); EOSINOPHILS 1 % (0-3); LYMPHOCYTES 15 % (16-44); MONOCYTES 4 % (0-5); NEUTROPHILS 78 % (28-66)
[2020-07-01 05:50] LABS: PLATELET ESTIMATE NORMAL (NORMAL)
[2020-07-01 06:30] VITALS: BP 154/78
[2020-07-01] MEDS: ENOXAPARIN 40MG/0.4ML SYRINGE (J1650 PER 10MG) SC SCH (09:14)
[2020-07-01] MEDS: TAMSULOSIN 0.4 MG CAP PO SCH (09:15)
[2020-07-01] MEDS: LACTOBACILLUS ACIDOPHILUS CAP (BACID) PO SCH (09:15)
[2020-07-01] MEDS: AUGMENTIN 500 MG TAB PO SCH ×2 (09:15→21:23)
[2020-07-01] MEDS: amLODIPine 5 MG TAB PO SCH (09:15)
[2020-07-01] MEDS: LEVEMIR (INSULIN DETEMIR) 1 UNITS/0.01ML SC SCH ×2 (09:15→21:23)
[2020-07-01] MEDS: MAG SULF 1GM/100ML (MAG RUN) 1 GM in IV 1 EA IV SCH ×3 (09:16→12:23)
[2020-07-01] MEDS: LIDOCAINE 5% (LIDODERM) PATCH TD SCH (09:16)
[2020-07-01] MEDS: BACITRACIN OINTMENT 30GM TUBE TOP SCH ×2 (12:23→21:24)
--- NOTE | 2020-07-01 12:56 | IPNPDOC ---
Text Note Date of Service The patient was seen on 07/01/20. NOTE Subjective: Patient is a 69-year-old male with a PMHx of HTN, DLP, DM2 who presented to the ER with weakness that progressed from his legs to his arms. 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 Patient was intubated while in the ICU for airway protection. Patient has been since extubated and has been advanced on his diet. Patient's hospital course was complicated with aspiration pneumonia for which he is on antibiotics that have been de-escalated to an oral regimen. Patient's hospital course was complicated with suicidal ideation for which she has been cleared by psychiatry. Patient was seen and examined at the bedside. Currently denies any chest pain, shortness breath or palpitations. Denies any nausea, vomiting, abdominal pain to report some diarrhea with loose stools. Denies any watery stools still reports some difficulty with urination for which she is requiring straight catheterizations. Objective: Vitals (See below) General: Sitting up in bed, appears comfortable, AAOx3 HEENT: NC, AT CVS: +S1S2 Lungs: Fair air entry b/l, no appreciable wheezing, rhonchi or rales Abdomen: Soft, nondistended and nontender Extremities: LE are without any edema, - Calf tenderness Assessment and plan: Acute hypoxic respiratory failure - likely 2/2 aspiration pneumonia - Denies any shortness of breath or cough - Patient's saturations have improved significantly; currently on room air - s/p Leukocytosis - CT chest demonstrates moderate lower lobe consolidations with patchy multifocal bibasilar atelectasis. - c/w Augmentin; s/p Zosyn (Antibiotic Day #4) Metabolic encephalopathy in the setting of sepsis: improved this AM -Patient has new AMS likely 2/2 uremia from ED vs recent use of Dilaudid/Seroquel s/p Acute kidney injury - likely 2/2 contrast induced nephropathy - Cr has normalized - Renal US demonstrates pelviectasis, likely unrelated to ED - Nephrology consulted and cleared patient Urinary retention - s/p Rodriguez catheter - c/w Bladder scans - If patient continues to retain urine will re-insert Rodriguez catheter - c/w Tamsulosin Diarrhea - Will check XR abdomen - c/w Probiotics - Will DC Antibiotics within 24 hours s/p Transaminitis 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 - s/p IVIG x 5 days - c/w PT and OT Critical care myopathy - s/p Intubated for 7 days - c/w PT and OT Dysphagia - c/w Speech therapy - Advance diet based on their recommendations IDDM2 - c/w ISS and Levemir HTN - BP well controlled - s/p Hydralazine / Labetalol - c/w Amlodipine with hold parameters s/p Suicidal ideation: - Psychiatry on consultation; has cleared patient Mood disorder - Will DC Olanzapine DVT prophylaxis - c/w Lovenox Disposition: - c/w PT and OT - Anticipate transition to rehabilitation VS,Vanie, I+O VS, Rogeliobone, I+O Laboratory Tests 07/01/20 04:47 Vital Signs Date Time Temp Pulse Resp B/P (MAP) Pulse Ox O2 Delivery O2 Flow Rate FiO2 07/01/20 09:15 88 135/92 07/01/20 06:30 97.7 18 93 Room Air 06/30/20 07:45 2.0 06/27/20 08:00 40 I&O- Last 24 Hours up to 6 AM 07/01/20 06:00 Intake Total 240 ml Output Total 250 ml Balance -10 ml KRISTINA PANCHAL MD Jul 01, 2020 12:56
--- NOTE | 2020-07-01 13:21 | REP ---
INDICATION: Diarrhea COMPARISON: None. TECHNIQUE: Supine views of the abdomen and pelvis. FINDINGS: Bowel gas pattern is nonspecific and without obstruction or perforation. No organomegaly. No significant abnormal calcifications. Skeletal structures demonstrate age-related degenerative changes. IMPRESSION: Normal abdominal radiograph. Nonspecific bowel gas pattern. <Electronically signed by Merrick Solitario > 07/01/20 [id number]
[2020-07-01 14:00] VITALS: BP 130/58
[2020-07-01] MEDS ORDERED: hydrOXYzine 25 MG TAB PO PRN (19:00)
[2020-07-01] MEDS: **NOTE PATIENT COMMENT** MISC XX SCH (21:18)
[2020-07-01 22:00] VITALS: BP 141/77
[2020-07-02] MEDS: SLF 3 ML SYR IV SCH ×4 (05:54→22:00)
[2020-07-02] MEDS: HumaLOG INSULIN (NovoLOG) PER UNIT SC SCH ×4 (05:54→17:02)
[2020-07-02 07:19] LABS: HEMATOCRIT 36.8 % (42.0-52.0); HEMOGLOBIN 11.5 g/dl (13.5-17.5); MEAN CORPUSCULAR HGB CONC 31.3 g/dl (32.0-36.5); MEAN CORPUSCULAR VOLUME 83.3 fl (80.0-96.0); PLATELET COUNT, AUTOMATED 295 10^3/uL (150-450); RED BLOOD COUNT 4.42 10^6/uL (4.30-6.10); WHITE BLOOD COUNT 5.7 10^3/uL (4.0-10.0)
[2020-07-02 07:44] LABS: BLOOD UREA NITROGEN 17 MG/DL (7-18); CALCIUM LEVEL 8.3 MG/DL (8.8-10.2); CARBON DIOXIDE LEVEL 25 MEQ/L (21-32); CHLORIDE LEVEL 104 MEQ/L (98-107); CREATININE FOR GFR 0.81 MG/DL (0.70-1.30); GLOMERULAR FILTRATION RATE > 60.0 (>42); GLUCOSE, FASTING 109 MG/DL (70-100); MAGNESIUM LEVEL 1.7 MG/DL (1.8-2.4); POTASSIUM SERUM 3.8 MEQ/L (3.5-5.1); SODIUM LEVEL 136 MEQ/L (136-145)
[2020-07-02] MEDS: ALBUTEROL SULFATE 2.5 MG/0.5 ML INH NEB SOLN NEB SCH ×4 (07:44→19:26)
--- NOTE | 2020-07-02 08:13 | IPN ---
DATE: 06/29/2020 SUBJECTIVE: Nacho is seen and examined this morning at the bedside. He remains on IV fluids and his urine output is excellent. His renal function continues to improve. His Rodriguez catheter was removed this morning and he continues to pass urine. He is not in a good mood today. He denies any shortness of breath or nausea, vomiting. PHYSICAL EXAMINATION: VITAL SIGNS: Temperature is 97.9, pulse is 77, respiratory rate is 18, blood pressure is 141/73, saturating 95% on 2 liters nasal cannula. Intake yesterday was 1950. Urine output yesterday was 2250. Weight on the bed scale today is 94.4 kg. GENERAL: Patient is seen lying in bed on the phone with his family. HEENT: Extraocular muscles are intact. The tongue is moist. NECK: Supple, jugular veins are not elevated. HEART: Heart sounds are regular, S1, S2. There is no leg edema. LUNGS: Symmetric but there is scattered rhonchus. There is no accessory muscle use nor tachypnea. ABDOMEN: Soft, bowel sounds. GENITOURINARY: Rodriguez catheter has been removed. SKIN: Warm and dry, normal turgor. NEUROLOGIC: He is oriented x3, interactive and conversational. EXTREMITIES: He moves his upper extremities on command and wiggles his toes. LABS: White count 6.7, hemoglobin 11.6, platelets 256. Sodium 146, potassium 3.8, bicarbonate 26, BUN 42, creatinine 1.0, magnesium 1.8. INPATIENT MEDICATIONS: He continues on D5W with 20 mEq of Alejandra-Ciel at 100 mL an hour. The remainder of his medications are unchanged from prior. PROBLEMS: 1. Contrast-induced nephropathy. He is in renal recovery. He was hypernatremic with base free water deficit. He is receiving hypotonic fluids. He has had excellent urine output and renal function is recovering back toward his prior baseline. I will continue IV fluids for one more day until his serum sodium normalizes. 2. Hypernatremia due to dehydration and free water deficit. It has improved with D5W. Sodium is down to 146, I am cutting the rate of fluids now to 50 mL and hour and will most likely stop tomorrow. 3. Aspiration pneumonia with hypoxia. His oxygen requirements are minimal, saturating well at present on 2 liters nasal cannula. He remains afebrile. His white count has normalized. He is on Augmentin as per the primary service. His is aspiration risk and continues on pureed diet. Will continue IV fluids for one more day. 4. Recent history of Guillain-Valladares with critical care myopathy. He is pending acute rehabilitation. IFRAHD
--- NOTE | 2020-07-02 08:17 | IPN ---
DATE: 06/30/2020 SUBJECTIVE: Mr. Connell is seen this morning at his bedside. He is sitting in the chair at the time of my visit. He was admitted with ascending paralysis 2 weeks after flu vaccine. He was treated for Guillain [place] syndrome and is improving slowly. He also had acute renal failure which has improved since admission. The patient is currently waiting for acute rehab. PHYSICAL EXAMINATION: VITAL SIGNS: Temperature 97.2 degrees Fahrenheit, heart is 72 per minute and respiratory rate 20 per minute, blood pressure 157/72 mm of mercury and oxygen saturation is 99%. HEENT: Head is atraumatic. NECK: Supple and without jugular venous distention or thyroid enlargement. HEART: Regular. LUNGS: Clear to auscultation. ABDOMEN: Soft and nontender and bowel sounds are normal. EXTREMITIES: Without cyanosis or clubbing. NEUROLOGICALLY: He has limited, minimal strength in his lower extremities. He is able to move upper extremities normally. LABORATORY STUDIES: Todays labs show sodium of 141, potassium 2.6, CO2 25, BUN 29 and creatinine 0.92, calcium 8.1 and magnesium 1.6. PROBLEMS: 1. Acute kidney injury kidney function has improved almost back to normal. 2. Metabolic encephalopathy his encephalopathy has also improved and he seems to be doing well. 3. Recent history of Guillain [place] syndrome. He is status post IVIG and improving. The patient is now still very weak but clearly in no acute distress due to myopathy. He is waiting for an acute rehab consult. IMPRESSION: From a renal standpoint the patient seems to be doing very well, and I do not feel that at this point daily follow up is needed. I am signing off. Please do not hesitate to call back should you need any further assistance. DERIAN
[2020-07-02] MEDS: MAG SULF 1GM/100ML (MAG RUN) 1 GM in IV 1 EA IV SCH ×2 (08:45→09:45)
[2020-07-02] MEDS: OLANZapine INTRAMUSCULAR 10MG VIAL IM SCH ×2 (08:57→20:56)
[2020-07-02] MEDS: LIDOCAINE 5% (LIDODERM) PATCH TD SCH (09:00)
[2020-07-02] MEDS: ENOXAPARIN 40MG/0.4ML SYRINGE (J1650 PER 10MG) SC SCH (09:00)
[2020-07-02] MEDS: AUGMENTIN 500 MG TAB PO SCH (09:00)
[2020-07-02] MEDS: LACTOBACILLUS ACIDOPHILUS CAP (BACID) PO SCH (09:00)
[2020-07-02] MEDS: LEVEMIR (INSULIN DETEMIR) 1 UNITS/0.01ML SC SCH ×2 (09:00→20:57)
[2020-07-02] MEDS: CHOLESTYRAMINE 4 GM PWD PKT PO SCH ×3 (09:00→21:46)
[2020-07-02] MEDS: TAMSULOSIN 0.4 MG CAP PO SCH (09:00)
[2020-07-02] MEDS: amLODIPine 5 MG TAB PO SCH (09:00)
[2020-07-02] MEDS: BACITRACIN OINTMENT 30GM TUBE TOP SCH ×2 (09:00→20:57)
[2020-07-02 09:37] LABS: ATYPICAL LYMPH 13 % (0-5); BASOPHILS 2 % (0-1); EOSINOPHILS 5 % (0-3); LYMPHOCYTES 13 % (16-44); MONOCYTES 3 % (0-5); NEUTROPHILS 62 % (28-66); PLATELET ESTIMATE NORMAL (NORMAL)
--- NOTE | 2020-07-02 11:14 | IPNPDOC ---
Text Note Date of Service The patient was seen on 07/02/20. NOTE Subjective: Patient is a 69-year-old male with a PMHx of HTN, DLP, DM2 who presented to the ER with weakness that progressed from his legs to his arms. 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 Patient was intubated while in the ICU for airway protection. Patient has been since extubated and has been advanced on his diet. Patient's hospital course was complicated with aspiration pneumonia for which he is on antibiotics that have been de-escalated to an oral regimen. Patient's hospital course was complicated with suicidal ideation for which she has been cleared by psychiatry. Patient was seen and examined at the bedside. Currently he reports that he is frustrated that he hasn't been progressing with physical therapy. He denies any CP, SOB or palpitations. Denies any N/V, abdominal pain. Reports some difficulty with urination. Objective: Vitals (See below) General: Sitting up in bed, appears comfortable, AAOx3 HEENT: NC, AT CVS: +S1S2 Lungs: Fair air entry b/l, no appreciable wheezing, rhonchi or rales Abdomen: Soft, nondistended and nontender Extremities: LE are without any edema, - Calf tenderness Assessment and plan: s/p Acute hypoxic respiratory failure - likely 2/2 aspiration pneumonia - No further shortness of breath or cough - Currently on room air saturating well - s/p Leukocytosis - CT chest demonstrates moderate lower lobe consolidations with patchy multifocal bibasilar atelectasis. - Will discontinue Augmentin; s/p Zosyn (Antibiotic Day #5) s/p Metabolic encephalopathy - possibly 2/2 Delirium on dementia - Possible Mood disorder - Will resume Olanzapine s/p Acute kidney injury - likely 2/2 contrast induced nephropathy - Cr has normalized - Renal US demonstrates pelviectasis, likely unrelated to ED - Nephrology consulted and cleared patient Urinary retention - s/p Rodriguez catheter - c/w Bladder scans - If patient continues to retain urine will re-insert Rodriguez catheter - c/w Tamsulosin Diarrhea - XR abdomen 07/01: Normal abdominal radiograph. Nonspecific bowel gas pattern. - Will DC Antibiotics today - c/w Probiotics and will add cholestyramine s/p Transaminitis Recent history Guillain-[place] syndrome - s/p IVIG x 5 days - c/w PT and OT Critical care myopathy - s/p Intubated for 7 days - c/w PT and OT Dysphagia - c/w Speech therapy - Advance diet based on their recommendations IDDM2 - c/w ISS and Levemir HTN - BP well controlled - s/p Hydralazine / Labetalol - c/w Amlodipine with hold parameters s/p Suicidal ideation: - Psychiatry on consultation; has cleared patient DVT prophylaxis - c/w Lovenox Disposition: - c/w PT and OT - Anticipate transition to rehabilitation VS,Fishbone, I+O VS, Fishbone, I+O Laboratory Tests 07/02/20 06:43 Vital Signs Date Time Temp Pulse Resp B/P (MAP) Pulse Ox O2 Delivery O2 Flow Rate FiO2 07/01/20 22:00 98.6 84 16 141/77 (98) 95 Room Air 06/30/20 07:45 2.0 06/27/20 08:00 40 I&O- Last 24 Hours up to 6 AM 07/02/20 06:00 Intake Total 940 ml Output Total 1100 ml Balance -160 ml KRISTINA PANCHAL MD Jul 02, 2020 11:14
[2020-07-02] MEDS: MAGNESIUM OXIDE 400 MG TAB (MAG-OX) PO SCH ×2 (13:45→20:55)
[2020-07-02 14:00] VITALS: BP 149/76
[2020-07-02] MEDS: **NOTE PATIENT COMMENT** MISC XX SCH (20:58)
[2020-07-02 22:00] VITALS: BP 150/79
[2020-07-03] MEDS: ALBUTEROL SULFATE 2.5 MG/0.5 ML INH NEB SOLN NEB SCH ×7 (05:43→23:03)
[2020-07-03] MEDS: HumaLOG INSULIN (NovoLOG) PER UNIT SC SCH ×5 (05:43→17:06)
[2020-07-03] MEDS: SLF 3 ML SYR IV SCH ×3 (05:47→21:04)
[2020-07-03 06:00] VITALS: BP 160/80
[2020-07-03] MEDS: ACETAMINOPHEN TAB 650MG DOSE (2X325MG) PO PRN (06:15)
[2020-07-03 07:33] LABS: BASO % 0.6 % (0.0-1.0); EOS # 0.2 10^3/uL (0.0-0.5); EOS % 3.4 % (0.0-3.0); HEMATOCRIT 39.1 % (42.0-52.0); HEMOGLOBIN 12.1 g/dl (13.5-17.5); LYMPH # 0.9 10^3/uL (1.5-5.0); LYMPH % 14.6 % (24.0-44.0); MEAN CORPUSCULAR HEMOGLOBIN 26.1 pg (27.0-33.0); MEAN CORPUSCULAR HGB CONC 30.9 g/dl (32.0-36.5); MEAN CORPUSCULAR VOLUME 84.3 fl (80.0-96.0); MONO # 0.6 10^3/uL (0.0-0.8); MONO % 8.7 % (0.0-5.0); NEUTROPHILS # 4.7 10^3/uL (1.5-8.5); NEUTROPHILS % 72.1 % (36.0-66.0); PLATELET COUNT, AUTOMATED 298 10^3/uL (150-450); RED BLOOD COUNT 4.64 10^6/uL (4.30-6.10); WHITE BLOOD COUNT 6.5 10^3/uL (4.0-10.0)
[2020-07-03 08:02] LABS: BLOOD UREA NITROGEN 15 MG/DL (7-18); CALCIUM LEVEL 8.6 MG/DL (8.8-10.2); CARBON DIOXIDE LEVEL 25 MEQ/L (21-32); CHLORIDE LEVEL 103 MEQ/L (98-107); CREATININE FOR GFR 0.84 MG/DL (0.70-1.30); GLOMERULAR FILTRATION RATE > 60.0 (>42); GLUCOSE, FASTING 112 MG/DL (70-100); MAGNESIUM LEVEL 1.7 MG/DL (1.8-2.4); POTASSIUM SERUM 3.9 MEQ/L (3.5-5.1); SODIUM LEVEL 137 MEQ/L (136-145)
[2020-07-03] MEDS: LACTOBACILLUS ACIDOPHILUS CAP (BACID) PO SCH (08:04)
[2020-07-03] MEDS: TAMSULOSIN 0.4 MG CAP PO SCH (08:04)
[2020-07-03] MEDS: LEVEMIR (INSULIN DETEMIR) 1 UNITS/0.01ML SC SCH ×2 (08:04→21:04)
[2020-07-03] MEDS: MAGNESIUM OXIDE 400 MG TAB (MAG-OX) PO SCH ×2 (08:04→21:05)
[2020-07-03] MEDS: amLODIPine 5 MG TAB PO SCH (08:05)
[2020-07-03] MEDS: ENOXAPARIN 40MG/0.4ML SYRINGE (J1650 PER 10MG) SC SCH (08:06)
[2020-07-03] MEDS: LIDOCAINE 5% (LIDODERM) PATCH TD SCH (08:07)
[2020-07-03] MEDS: BACITRACIN OINTMENT 30GM TUBE TOP SCH ×2 (08:10→21:04)
[2020-07-03] MEDS ORDERED: AMLO1TAB24 PO (10:01)
[2020-07-03] MEDS ORDERED: INSUHUMDS SC (10:01)
[2020-07-03] MEDS ORDERED: CHOL4PW PO (10:01)
[2020-07-03] MEDS ORDERED: RISATAB3 PO (10:01)
[2020-07-03] MEDS ORDERED: INSUDET SC (10:01)
[2020-07-03] MEDS ORDERED: MAG400TA PO (10:01)
[2020-07-03] MEDS ORDERED: FLOM0.4C39 PO (10:01)
[2020-07-03] MEDS ORDERED: OLAN2.5T25 PO (10:01)
[2020-07-03] MEDS: OLANZapine INTRAMUSCULAR 10MG VIAL IM SCH (10:54)
[2020-07-03] MEDS: CHOLESTYRAMINE 4 GM PWD PKT PO SCH ×3 (10:56→21:03)
--- NOTE | 2020-07-03 12:16 | IPNPDOC ---
Text Note Date of Service The patient was seen on 07/03/20. NOTE Subjective: Patient is a 69-year-old male with a PMHx of HTN, DLP, DM2 who presented to the ER with weakness that progressed from his legs to his arms. 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 Patient was intubated while in the ICU for airway protection. Patient has been since extubated and has been advanced on his diet. Patient's hospital course was complicated with aspiration pneumonia for which he is on antibiotics that have been de-escalated to an oral regimen. Patient's hospital course was complicated with suicidal ideation for which she has been cleared by psychiatry. Patient was seen and examined at the bedside. Patient reports his evening has been uneventful. Denies any chest pain, shortness of breath, palpitations, nausea, vomiting, early pain or diarrhea. Patient is still having difficulty with urination and will have a Rodriguez catheter placed today. Objective: Vitals (See below) General: Patient is laying in bed, does not appear to be any distress, is comfortable, awake, alert and oriented 3 HEENT: NC, AT CVS: +S1S2 Lungs: There appears to be fair air entry bilaterally without any auscultated rhonchi, wheezing or crackles Abdomen: Abdomen remains soft without distention or tenderness Extremities: No edema, - Calf tenderness Assessment and plan: s/p Acute hypoxic respiratory failure - likely 2/2 aspiration pneumonia - Remains asymptomatic - Saturating well on room air - s/p Leukocytosis - CT chest demonstrates moderate lower lobe consolidations with patchy multifocal bibasilar atelectasis. - s/p Augmentin; s/p Zosyn (Completed 5 day course of antibiotic therapy) s/p Metabolic encephalopathy - possibly 2/2 Delirium on dementia - Patient is fully oriented to person, place and time - Possible Mood disorder - c/w Olanzapine QHS s/p Acute kidney injury - likely 2/2 contrast induced nephropathy - Cr has normalized - Renal US demonstrates pelviectasis, likely unrelated to ED - Nephrology consulted and cleared patient Urinary retention - s/p Rodriguez catheter - c/w Bladder scans - Will have Rodriguez catheter re-inserted today - c/w Tamsulosin Diarrhea - XR abdomen 07/01: Normal abdominal radiograph. Nonspecific bowel gas pattern. - s/p Antibiotics - c/w Probiotics and will add cholestyramine s/p Transaminitis Recent history Guillain-[place] syndrome - s/p IVIG x 5 days - c/w PT and OT Critical care myopathy - s/p Intubated for 7 days - c/w PT and OT Dysphagia - c/w Speech therapy - Advance diet based on their recommendations IDDM2 - c/w ISS and Levemir HTN - BP well controlled - s/p Hydralazine / Labetalol - c/w Amlodipine with hold parameters s/p Suicidal ideation: - Psychiatry on consultation; has cleared patient DVT prophylaxis - c/w Lovenox Disposition: - c/w PT and OT - Anticipate transition to rehabilitation tomorrow morning VS,Aaron, I+O VS, Aaron, I+O Laboratory Tests 07/03/20 07:08 Vital Signs Date Time Temp Pulse Resp B/P (MAP) Pulse Ox O2 Delivery O2 Flow Rate FiO2 07/03/20 08:05 82 160/80 07/03/20 06:00 98.0 15 95 Room Air 06/30/20 07:45 2.0 06/27/20 08:00 40 I&O- Last 24 Hours up to 6 AM 07/03/20 06:00 Intake Total 1260 ml Output Total 550 ml Balance 710 ml KRISTINA PANCHAL MD Jul 03, 2020 12:15
[2020-07-03 14:00] VITALS: BP 155/80
[2020-07-03] MEDS ORDERED: HumaLOG INSULIN (NovoLOG) PER UNIT SC SCH (21:00)
[2020-07-03] MEDS ORDERED: OLANZapine 2.5MG TABLET PO SCH (21:00)
[2020-07-03] MEDS: **NOTE PATIENT COMMENT** MISC XX SCH (21:04)
[2020-07-03 21:27] VITALS: BP 132/87
[2020-07-04] MEDS: ALBUTEROL SULFATE 2.5 MG/0.5 ML INH NEB SOLN NEB SCH ×2 (02:25→07:37)
[2020-07-04] MEDS: SLF 3 ML SYR IV SCH (04:19)
[2020-07-04 05:59] VITALS: BP 153/55
[2020-07-04 06:48] LABS: HEMATOCRIT 37.7 % (42.0-52.0); HEMOGLOBIN 11.8 g/dl (13.5-17.5); MEAN CORPUSCULAR HEMOGLOBIN 26.3 pg (27.0-33.0); MEAN CORPUSCULAR HGB CONC 31.3 g/dl (32.0-36.5); MEAN CORPUSCULAR VOLUME 84.2 fl (80.0-96.0); PLATELET COUNT, AUTOMATED 345 10^3/uL (150-450); RED BLOOD COUNT 4.48 10^6/uL (4.30-6.10); WHITE BLOOD COUNT 9.5 10^3/uL (4.0-10.0)
[2020-07-04 07:06] LABS: BLOOD UREA NITROGEN 15 MG/DL (7-18); CALCIUM LEVEL 8.4 MG/DL (8.8-10.2); CARBON DIOXIDE LEVEL 28 MEQ/L (21-32); CHLORIDE LEVEL 102 MEQ/L (98-107); CREATININE FOR GFR 0.85 MG/DL (0.70-1.30); GLOMERULAR FILTRATION RATE > 60.0 (>42); GLUCOSE, FASTING 106 MG/DL (70-100); MAGNESIUM LEVEL 1.7 MG/DL (1.8-2.4); POTASSIUM SERUM 4.6 MEQ/L (3.5-5.1); SODIUM LEVEL 138 MEQ/L (136-145)
[2020-07-04 07:26] VITALS: BP 153/55
[2020-07-04] MEDS: ENOXAPARIN 40MG/0.4ML SYRINGE (J1650 PER 10MG) SC SCH (07:26)
[2020-07-04] MEDS: LACTOBACILLUS ACIDOPHILUS CAP (BACID) PO SCH (07:26)
[2020-07-04] MEDS: amLODIPine 5 MG TAB PO SCH (07:26)
[2020-07-04] MEDS: TAMSULOSIN 0.4 MG CAP PO SCH (07:26)
[2020-07-04] MEDS: LIDOCAINE 5% (LIDODERM) PATCH TD SCH (07:27)
[2020-07-04] MEDS: MAGNESIUM OXIDE 400 MG TAB (MAG-OX) PO SCH (07:27)
[2020-07-04] MEDS: CHOLESTYRAMINE 4 GM PWD PKT PO SCH (07:28)
[2020-07-04] MEDS: BACITRACIN OINTMENT 30GM TUBE TOP SCH (07:28)
[2020-07-04] MEDS: HumaLOG INSULIN (NovoLOG) PER UNIT SC SCH (07:30)
[2020-07-04] MEDS: LEVEMIR (INSULIN DETEMIR) 1 UNITS/0.01ML SC SCH (07:32)
[2020-07-04 07:36] LABS: BASOPHILS 1 % (0-1); EOSINOPHILS 7 % (0-3); LYMPHOCYTES 9 % (16-44); MONOCYTES 5 % (0-5); NEUTROPHILS 74 % (28-66)
[2020-07-04 07:37] LABS: PLATELET ESTIMATE NORMAL (NORMAL)
[2020-07-04 07:38] LABS: ANISOCYTOSIS 1+
--- NOTE | 2020-07-04 11:28 | DS.PDOC ---
Discharge Summary General Date of Admission Jun 14, 2020 at 10:29 Date of Discharge 07/04/2020 Discharge Summary PROCEDURES PERFORMED DURING STAY: Endotracheal intubation on 06/17/2020 ADMITTING DIAGNOSES / DISCHARGE DIAGNOSES: s/p Acute hypoxic respiratory failure - likely 2/2 aspiration pneumonia s/p Metabolic encephalopathy - possibly 2/2 Delirium on dementia s/p Acute kidney injury - likely 2/2 contrast induced nephropathy Urinary retention s/p Diarrhea s/p Transaminitis Recent history Guillain-Charlotte syndrome Critical care myopathy Dysphagia IDDM2 HTN s/p Suicidal ideation: DVT prophylaxis COMPLICATIONS/CHIEF COMPLAINT: Weakness HISTORY OF PRESENT ILLNESS: Patient is a 69-year-old male with a PMHx of HTN, DLP, DM2 who presented to the ER with weakness that progressed from his legs to his arms. 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 Patient was intubated while in the ICU for airway protection. Patient has been since extubated and has been advanced on his diet. Patient's hospital course was complicated with aspiration pneumonia for which he is on antibiotics that have been de-escalated to an oral regimen. Patient's hospital course was complicated with suicidal ideation for which she has been cleared by psychiatry. HOSPITAL COURSE: s/p Acute hypoxic respiratory failure - likely 2/2 aspiration pneumonia - Remains asymptomatic and saturating well on room air - s/p Leukocytosis - CT chest demonstrates moderate lower lobe consolidations with patchy multifocal bibasilar atelectasis. - s/p Augmentin; s/p Zosyn (Completed 5 day course of antibiotic therapy) s/p Metabolic encephalopathy - possibly 2/2 Delirium on dementia - Patient is fully oriented to person, place and time - Possible Mood disorder - c/w Olanzapine QHS s/p Acute kidney injury - likely 2/2 contrast induced nephropathy - Cr has normalized - Renal US demonstrates pelviectasis, likely unrelated to ED - Nephrology consulted and cleared patient Urinary retention - s/p Rodriguez catheter - c/w Bladder scans - c/w Tamsulosin - Rodriguez catheter re-inserted will need outpatient follow up with Urology s/p Diarrhea - XR abdomen 07/01: Normal abdominal radiograph. Nonspecific bowel gas pattern. - s/p Antibiotics - c/w Probiotics and Cholestyramine s/p Transaminitis Recent history Guillain-Charlotte syndrome - s/p IVIG x 5 days - c/w PT and OT Critical care myopathy - s/p Intubated for 7 days - c/w PT and OT Dysphagia - c/w Speech therapy - Advance diet based on their recommendations IDDM2 - c/w ISS and Levemir HTN - BP well controlled - s/p Hydralazine / Labetalol - c/w Amlodipine with hold parameters s/p Suicidal ideation: - Psychiatry on consultation; has cleared patient DVT prophylaxis - c/w Lovenox DISCHARGE MEDICATIONS: Please see below. ALLERGIES: Please see below. PHYSICAL EXAMINATION ON DISCHARGE: Vitals (See below) General: Sitting up in bed, appears to be comfortable, awake and alert, oriented to person, place and time HEENT: NC, AT CVS: +S1S2 Lungs: Air entry is fair bilaterally without any auscultated wheezing, rhonchi or crackles Abdomen: Again, remains soft without any appreciable tenderness or distention Extremities: Lower extremities are free of any edema, - Calf tenderness LABORATORY DATA: Please see below. ACTIVITY: [As tolerated]. DISCHARGE PLAN: Follow up with PCP, Neurology, Urology and Orthopedic surgery within 7 days Remain compliant with treatment plan and medications Return to the ER if you experience any problems DISPOSITION: Discharge to Acute Rehab Unit DISCHARGE CONDITION: [Stable]. TIME SPENT ON DISCHARGE: 35 minutes. Vital Signs/I&Os Vital Signs Date Time Temp Pulse Resp B/P (MAP) Pulse Ox O2 Delivery O2 Flow Rate FiO2 07/04/20 07:26 70 153/55 07/04/20 05:59 98.0 16 93 Room Air 06/30/20 07:45 2.0 I&O- Last 24 Hours up to 6 AM 07/04/20 05:59 Intake Total 660 ml Output Total 1000 ml Balance -340 ml Laboratory Data Labs 24H Laboratory Tests 2 07/03/20 12:20: Coronavirus (COVID-19)(PCR) NEGATIVE 07/03/20 16:24: Bedside Glucose (Misc Panel) 222H 07/03/20 21:02: Bedside Glucose (Misc Panel) 124H 07/04/20 05:42: Neutrophils (%) (Auto) , Nucleated Red Blood Cells % (auto) 0.0, Neutrophils 74H, Band Neutrophils 4, Lymphocytes (Manual) 9L, Monocytes (Manual) 5, Eosinophils (Manual) 7H, Basophils (Manual) 1, Anisocytosis 1+, Platelet Estimate NORMAL, Anion Gap 8, Glomerular Filtration Rate > 60.0, Calcium Level 8.4L, Magnesium Level 1.7L CBC/BMP Laboratory Tests 07/04/20 05:42 FSBS Laboratory Tests Test 07/03/20 16:24 07/03/20 21:02 Range/Units Bedside Glucose (Misc Panel) 222 124 83-110 MG/DL Microbiology Microbiology 06/26/20 Blood Culture - Final, Complete NO GROWTH AFTER 5 DAYS 06/26/20 Urine Culture - Final, Complete 06/26/20 Blood Culture - Final, Complete NO GROWTH AFTER 5 DAYS 06/26/20 Gram Stain - Final, Complete 06/26/20 Sputum Culture - Final, Complete Discharge Medications Scheduled Amlodipine Besylate (Amlodipine Besylate) 5 Mg Tablet, 5 MG PO DAILY Aspirin (Aspirin EC) 81 Mg Tablet.dr, 81 MG PO Q2D, (Reported) Cholecalciferol (Vitamin D3) (Vitamin D3) 1,000 Unit Tablet, 1,000 UNITS PO DAILY, (Reported) Cholestyramine (Cholestyramine Packet) 4 Gm Powd.pack, 2 GM PO TID Gabapentin (Gabapentin) 400 Mg Capsule, 1,200 MG PO QHS, (Reported) Insulin Detemir (Levemir) 100 Unit/1 Ml Vial, 15 UNITS SC BID Insulin Human Lispro (Humalog) 100 Unit/1 Ml Vial, 0 UNITS SC ACHS AC and HS as per [facility] Sliding scale L.acidoph/L.bulg/B.bif/S.therm (Nini-Bid Caplet) 1 Each Tablet, 1 EA PO DAILY Magnesium Oxide (Magnesium Oxide) 400 Mg Tablet, 800 MG PO BID Multivitamin (Multivitamins) 1 Each Capsule, 1 CAP PO QPM, (Reported) Olanzapine (Olanzapine) 2.5 Mg Tablet, 1 TAB PO QPM Nickerson-3/Dha/Epa/Fish Oil (Fish Oil 1,000 mg Softgel) 1 Each Capsule, 1,000 MG PO QPM, (Reported) Omeprazole (Omeprazole) 20 Mg Capsule.dr, 20 MG PO DAILY, (Reported) Rosuvastatin Calcium (Rosuvastatin Calcium) 40 Mg Tablet, 40 MG PO QPM, (Reported) Tamsulosin HCl (Flomax) 0.4 Mg Capsule, 0.4 MG PO DAILY Allergies Coded Allergies: latex (Verified Allergy, Intermediate, blisters, 03/14/19) KRISTINA PANCHAL MD Jul 04, 2020 11:28
== END 2020-07-04 09:20 | DRG 94 ==
LOC: M ED 06:49 → EDBD 06:49 → M ED INP 10:29 → ENRESERV 10:42 → M ICU 11:34 → M PCU 06-24 12:16 → M MS5PR 07-01 06:23
PROVIDERS: ADMIT Internal Medicine; ATTEND Internal Medicine
PROC: 5A1945Z Respiratory Ventilation, 24-96 Consecutive Hours (ICD-10-PCS; principal; 2020-06-17)
DX: G61.0 Guillain-Barre syndrome (principal); J96.01 Acute respiratory failure with hypoxia; J69.0 Pneumonitis due to inhalation of food and vomit; A41.9 Sepsis, unspecified organism; G93.41 Metabolic encephalopathy; I16.1 Hypertensive emergency; N17.9 Acute kidney failure, unspecified; F03.91 Unspecified dementia, unspecified severity, with behavioral disturbance; G72.81 Critical illness myopathy; R45.851 Suicidal ideations; E87.0 Hyperosmolality and hypernatremia; E11.40 Type 2 diabetes mellitus with diabetic neuropathy, unspecified; M48.07 Spinal stenosis, lumbosacral region; I10 Essential (primary) hypertension; R33.9 Retention of urine, unspecified; R13.10 Dysphagia, unspecified; R19.7 Diarrhea, unspecified; Z79.4 Long term (current) use of insulin; Z79.899 Other long term (current) drug therapy; Z88.8 Allergy status to other drugs, medicaments and biological substances; Z91.040 Latex allergy status; E78.5 Hyperlipidemia, unspecified; Z87.891 Personal history of nicotine dependence; Z79.82 Long term (current) use of aspirin; N40.0 Benign prostatic hyperplasia without lower urinary tract symptoms; F39 Unspecified mood [affective] disorder

== ENCOUNTER → 2021-03-22 | Outpatient (CLI) | payer OTHER, MEDICARE ==
[~2021-03-22] MED LIST changes: +ALEV220T22 PO; +AMLO1TAB24 PO; +ASPI81TA26 PO; +CHOL4PW PO; +D31000TA2 PO; +FLOM0.4C39 PO; +GABA-283 PO; -GABA-845 PO; +IBUP200C29 PO; +INSUDET SC; +INSUHUMDS SC; -LISI40TA PO; +LISI40TA4 PO; +MAGN400T35 PO; +METF-838 PO; +OLAN2.5T25 PO; +OMEG10002 PO; +OMEP1CAP73 PO; +RISATAB3 PO
--- NOTE | 2021-03-22 16:04 | REP ---
INDICATION: S70.02XA CONTUSION OF LEFT HIP S80.02XA CONTUSION OF LEFT KN. COMPARISON: None. TECHNIQUE: Two views FINDINGS: Mild degenerative change. Normal bony texture. No fracture or dislocation. IMPRESSION: Mild degenerative change. <Electronically signed by Dio Nash > 03/22/21 [id number]
--- NOTE | 2021-03-22 16:05 | REP ---
INDICATION: S70.02XA CONTUSION OF LEFT HIP S80.02XA CONTUSION OF LEFT KN. COMPARISON: None. TECHNIQUE: Two views FINDINGS: No fracture or dislocation. Normal bone texture alignment. IMPRESSION: No bony injury. <Electronically signed by Dio Nash > 03/22/21 [id number]
--- NOTE | 2021-03-22 16:06 | REP ---
INDICATION: S70.02XA CONTUSION OF LEFT HIP S80.02XA CONTUSION OF LEFT KN. COMPARISON: None. TECHNIQUE: Four views FINDINGS: Normal alignment and bone texture. No fracture or dislocation. Slight narrowing medial compartment of the joint. IMPRESSION: Narrowing medial compartment knee joint. <Electronically signed by Dio Nash > 03/22/21 [id number]
== END ==
LOC: M WUC 15:25
PROVIDERS: ATTEND Physician Assistant
DX: S70.02XA Contusion of left hip, initial encounter (principal); S80.02XA Contusion of left knee, initial encounter; X58.XXXA Exposure to other specified factors, initial encounter; Y92.89 Other specified places as the place of occurrence of the external cause; Y93.89 Activity, other specified; Y99.8 Other external cause status; M16.12 Unilateral primary osteoarthritis, left hip

== ENCOUNTER → 2022-11-12 | Outpatient (CLI) | payer MEDICARE, OTHER ==
[~2022-11-12] MED LIST changes: -D31000TA2 PO; +VITA100093 PO
== END ==
LOC: M PLAIMG 10:47
PROVIDERS: ATTEND Psychiatry & Neurology Neurology
DX: M48.062 Spinal stenosis, lumbar region with neurogenic claudication (principal); M50.00 Cervical disc disorder with myelopathy, unspecified cervical region; R20.2 Paresthesia of skin; R53.1 Weakness

== ENCOUNTER → 2023-01-13 | Outpatient (CLI) | payer MEDICARE, OTHER ==
[2023-01-14 23:09] LABS: PSA TOTAL 1.1 ng/mL (0.0-4.0)
== END ==
LOC: M PLALAB 11:06
PROVIDERS: ATTEND Urology
DX: N40.2 Nodular prostate without lower urinary tract symptoms (principal); Z87.438 Personal history of other diseases of male genital organs

== ENCOUNTER → 2023-02-06 | Outpatient (CLI) | payer MEDICARE, OTHER ==
[~2023-02-06] MED LIST changes: +ISOVUE-370 76% 100ML VIAL ONE
== END ==
LOC: M PLAIMG 12:31
PROVIDERS: ATTEND Urology
DX: N28.1 Cyst of kidney, acquired (principal)
CPT/HCPCS: 74178; Q9967